=== PATIENT | male | born 1960 | race Caucasian/White ===

== ENCOUNTER 2018-06-19 01:41 | Emergency (ER) | payer OTHER, MEDICARE ==
--- NOTE | 2018-06-19 02:07 | ED ---
HPI Diabetic - HPI Summary HPI Summary: This patient is a 57 year old M BIBA to [facility] with a chief complaint of low blood glucose levels since 0:00 today. The patient rates the pain 4/10 in severity. Patient reports diaphoresis and feeling funny. He reports that for the past 4 years, his blood glucose has been out of control at 300-400. After a while, it became normal at about 160. However, last week, his blood glucose levels started dropping at night. 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 Patient takes long- acting insulin twice a day: once in the morning and again at 18:00. - History Of Current Complaint Chief Complaint: EDDiabeticProb Time Seen by Provider: 06/19/18 01:42 Hx Obtained From: Patient Onset/Duration: Sudden Onset, Lasting Hours - Starting 0:00 today., Resolved - Blood glucose levels no longer as low. Timing: Frequency Of Episodes - Every night for the past week Associated Signs & Symptoms: Diaphoresis - Allergies/Home Medications Allergies/Adverse Reactions: Allergies Allergy/AdvReac Type Severity Reaction Status Date / Time MS Iodinated Diagnostic Allergy Unknown Unknown Verified 07/13/16 17:14 Agents Reaction [Iodinated Diagnostic Agents] Details MS Shellfish-derived Products Allergy Unknown Unknown Verified 07/13/16 17:14 [Shellfish-derived Products] Reaction Details MS Penicillins [PCN] Allergy Rash And Verified 07/13/16 17:14 Itching PMH/Surg Hx/FS Hx/Imm Hx Endocrine/Hematology History: Reports: Hx Diabetes - IDDM WITH RETINOPATHY Cardiovascular History: Reports: Hx Angina, Hx Auto Implanted Cardiovert Defib - 2008, Hx Cardiomegaly - CARDIOMYOPATHY, Hx Congestive Heart Failure - EF% 20, CHF STAGE 3, Hx Coronary Artery Disease, Hx Hypercholesterolemia - HLD, Hx Hypertension, Hx Peripheral Vascular Disease - LEG STASIS ULCERS, Other Cardiovascular Problems/Disorders - LV mural thrombus, ARTHEROSCELEROUS Respiratory History: Reports: Hx Sleep Apnea - evaluation for 10/2013, Other Respiratory Problems/Disorders - smoker/TRYING TO QUIT Musculoskeletal History: Reports: Other Musculoskeletal History - (left) leg wound, OBESITY Sensory History: Reports: Hx Contacts or Glasses Opthamlomology History: Reports: Hx Contacts or Glasses - Cancer History Cancer Type, 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 ZICO STENT 2007. CARDIAC CATH. PACEMAKER/ICD 2009. S/P RIGHT ROTOR CUFF REPAIR Hx Anesthesia Reactions: No Infectious Disease History: No Infectious Disease History: Denies: Traveled Outside the [place] in Last 30 Days - Family History Known Family History: Positive: Cardiac Disease - Social History Occupation: Retired Lives: With Family Alcohol Use: None Substance Use Type: Reports: None Smoking Status (MU): Heavy Every Day Tobacco Smoker Type: Cigarettes Amount Used/How Often: < 5 CIG/DAY Length of Time of Smoking/Using Tobacco: 35 YRS Have You Smoked in the Last Year: Yes Review of Systems Positive: Skin Diaphoresis Neurological: Other - "feeling funny" All Other Systems Reviewed And Are Negative: Yes Physical Exam - Summary Physical Exam Summary: VITAL SIGNS: Reviewed. GENERAL: Patient is a well-developed and nourished MALE who is lying comfortable in the stretcher. Patient is not in any acute respiratory distress. HEAD AND FACE: No signs of trauma. No ecchymosis, hematomas or skull depressions. No sinus tenderness. EYES: PERRLA, EOMI x 2, No injected conjunctiva, no nystagmus. EARS: Hearing grossly intact. Ear canals and tympanic membranes are within normal limits. MOUTH: Oropharynx within normal limits. NECK: Supple, trachea is midline, no adenopathy, no JVD, no carotid bruit, no c- spine tenderness, neck with full ROM. CHEST: Symmetric, no tenderness at palpation LUNGS: Clear to auscultation bilaterally. No wheezing or crackles. CVS: Regular rate and rhythm, S1 and S2 present, no murmurs or gallops appreciated. ABDOMEN: Soft, non-tender. No signs of distention. No rebound no guarding, and no masses palpated. Bowel sounds are normal. EXTREMITIES: FROM in all major joints, no edema, no cyanosis or clubbing. NEURO: Alert and oriented x 3. No acute neurological deficits. Speech is normal and follows commands. SKIN: Dry and warm Triage Information Reviewed: Yes Vital Signs On Initial Exam: Initial Vitals Pulse BP Pulse Ox 72 93/54 99 06/19/18 01:46 06/19/18 01:46 06/19/18 01:46 Vital Signs Reviewed: Yes Diagnostics - Vital Signs Vital Signs Temp Pulse Resp BP Pulse Ox 06/19/18 01:53 98.8 F 68 14 93/54 98 06/19/18 01:46 72 93/54 99 - Laboratory Lab Statement: Any lab studies that have been ordered have been reviewed, and results considered in the medical decision making process. Diabetic Course/Dx - Course Assessment/Plan: This patient is a 57 year old M BIBA to [facility] with a chief complaint of low blood glucose levels since 0:00 today. Patient's blood glucose levels returned to normal in the ED and was discharged home. He was given instructions to follow up with his PCP and to change his daily evening insulin dose to 22 units at 20:00. - Diagnoses Provider Diagnoses: Hyperglycemia Discharge - Sign-Out/Discharge Documenting (check all that apply): Patient Departure - Discharge Plan Condition: Stable Disposition: HOME Patient Education Materials: Diabetes and Exercise (ED) Referrals: Griffin Yuan MD [Primary Care Provider] - 2 Weeks Additional Instructions: Decrease insulin evening dose from 27 units to 22 units. Take it at 20:00. Monitor your blood sugar and follow up with your doctor in 1-2 days. - Attestation Statements Document Initiated by Scribe: Yes Documenting Scribe: Roberto Allen Provider For Whom Scribe is Documenting (Include Credential): Hellen Ulloa MD Scribe Attestation: Roberto Villalobos, scribed for Hellen Ulloa MD on 06/19/18 at 0339.
[2018-06-19 04:11] VITALS: BP 89/56
== END 2018-06-19 04:12 | disposition home or self-care (01) ==
LOC: ED 01:41
DX: E11.65 Type 2 diabetes mellitus with hyperglycemia (principal); Z79.4 Long term (current) use of insulin; R61 Generalized hyperhidrosis; Z95.810 Presence of automatic (implantable) cardiac defibrillator; Z91.041 Radiographic dye allergy status; Z88.0 Allergy status to penicillin; Z91.013 Allergy to seafood; F17.210 Nicotine dependence, cigarettes, uncomplicated
CPT/HCPCS: 99282

== ENCOUNTER 2018-09-21 18:25 | Emergency (ER) | payer OTHER, MEDICARE ==
--- NOTE | 2018-09-21 20:00 | ED ---
Head Injury - HPI Summary HPI Summary: 57-year-old presents with head injury. He states he slipped and fell onto the left posterior aspect of his head. He also hit his hip. He is able to ambulate without difficulty. No neck pain. He is on warfarin for history of a pacer. He denies any loss consciousness. No nausea or vomiting. He admits to a headache. No dizziness. No chest pain or shortness of breath. He denies any other symptoms. - History Of Current Complaint Chief Complaint: EDHeadInjury Stated Complaint: FALL/HEAD INJURY Time Seen by Provider: 09/21/18 19:14 Pain Intensity: 6 - Allergies/Home Medications Allergies/Adverse Reactions: Allergies Allergy/AdvReac Type Severity Reaction Status Date / Time Iodinated Contrast- Oral and Allergy Unknown Verified 09/21/18 18:28 IV Dye Reaction Details Penicillins Allergy Rash And Verified 09/21/18 18:28 Itching shellfish derived Allergy Unknown Verified 09/21/18 18:28 Reaction Details PMH/Surg Hx/FS Hx/Imm Hx Endocrine/Hematology History: Reports: Hx Anticoagulant Therapy, Hx Diabetes - IDDM WITH RETINOPATHY Cardiovascular History: Reports: Hx Angina, Hx Auto Implanted Cardiovert Defib - 2008, Hx Cardiomegaly - CARDIOMYOPATHY, Hx Congestive Heart Failure - EF% 20, CHF STAGE 3, Hx Coronary Artery Disease, Hx Hypercholesterolemia - HLD, Hx Hypertension, Hx Peripheral Vascular Disease - LEG STASIS ULCERS, Other Cardiovascular Problems/Disorders - LV mural thrombus, ARTHEROSCELEROUS Respiratory History: Reports: Hx Sleep Apnea - evaluation for 10/2013, Other Respiratory Problems/Disorders - smoker/TRYING TO QUIT Musculoskeletal History: Reports: Other Musculoskeletal History - (left) leg wound, OBESITY Sensory History: Reports: Hx Contacts or Glasses Opthamlomology History: Reports: Hx Contacts or Glasses - Cancer History Cancer Type, 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 ZICO STENT 2007. CARDIAC CATH. PACEMAKER/ICD 2008. S/P RIGHT ROTOR CUFF REPAIR Hx Anesthesia Reactions: No Infectious Disease History: No Infectious Disease History: Denies: Traveled Outside the [place] in Last 30 Days - Family History Known Family History: Positive: Cardiac Disease - Social History Alcohol Use: None Substance Use Type: Reports: None Smoking Status (MU): Heavy Every Day Tobacco Smoker Type: Cigarettes Amount Used/How Often: < 5 CIG/DAY Length of Time of Smoking/Using Tobacco: 35 YRS Have You Smoked in the Last Year: Yes Review of Systems Negative: Fever Negative: Chest Pain Negative: Shortness Of Breath Positive: Headache All Other Systems Reviewed And Are Negative: Yes Physical Exam Triage Information Reviewed: Yes Vital Signs On Initial Exam: Initial Vitals Temp Pulse Resp BP Pulse Ox 98.7 F 102 16 107/67 99 09/21/18 18:28 09/21/18 18:28 09/21/18 18:28 09/21/18 18:28 09/21/18 18:28 Vital Signs Reviewed: Yes Appearance: Positive: Well-Appearing Skin: Positive: Warm, Dry Head/Face: Positive: Normal Head/Face Inspection, Other - contusion noted behind left ear on head Eyes: Positive: Normal, EOMI, MAMI, Conjunctiva Clear ENT: Positive: Normal ENT inspection, Pharynx normal, TMs normal Neck: Positive: Other: - nontender neck Respiratory/Lung Sounds: Positive: Clear to Auscultation, Breath Sounds Present Cardiovascular: Positive: Normal, RRR Abdomen Description: Positive: Nontender, Soft, Other: - tenderness over left hip Bowel Sounds: Positive: Present Musculoskeletal: Positive: Normal, Strength/ROM Intact - left hip, Other - good pulses Neurological: Positive: Sensory/Motor Intact, Alert, Oriented to Person Place, Time, CN Intact II-III, Normal Gait Psychiatric: Positive: Normal Diagnostics - Vital Signs Vital Signs Temp Pulse Resp BP Pulse Ox 09/21/18 18:28 98.7 F 102 16 107/67 99 - Laboratory Lab Statement: Any lab studies that have been ordered have been reviewed, and results considered in the medical decision making process. - CT head CT Interpretation Completed By: ED Physician Summary of CT Findings: IMPRESSION: 1. No acute intracranial pathology. 2. Mild mucosal thickening of the ethmoid sinuses. 3. Other chronic findings, as above. neck CT Interpretation Completed By: ED Physician Summary of CT Findings: IMPRESSION: No acute cervical spine fracture. Head Injury Course/Dx Course Of Treatment: 57-year-old presents with head injury. He states he slipped and fell onto the left posterior aspect of his head. He also hit his hip. He is able to ambulate without difficulty. No neck pain. He is on warfarin for history of a pacer. He denies any loss consciousness. No nausea or vomiting. He admits to a headache. No dizziness. No chest pain or shortness of breath. He denies any other symptoms. On exam has contusion noted to the left posterior aspect of his head behind the ear. Normal neuro exam. CT brain normal. CT neck normal. Advised that if anything changes to return for repeat CT due to the location of the head injury. is present with patient and watch him overnight. Told to follow-up with primary. Patient understands agrees plan. - Diagnoses Differential Diagnosis/HQI/PQRI: Concussion Without LOC, Contusion, Intracranial Bleed Provider Diagnoses: Head injury Discharge - Sign-Out/Discharge Documenting (check all that apply): Patient Departure - Discharge Plan Condition: Good Disposition: HOME Patient Education Materials: Head Injury (ED) Referrals: Griffin Yuan MD [Primary Care Provider] - Additional Instructions: Place ice on area as needed Take Tylenol for headache every 6 hours Modify activities as tolerated Follow up with primary within 5 days Return to ED if develop vomiting, severe headache, change in behavior, or any new or worsening symptoms - Billing Disposition and Condition Condition: GOOD Disposition: Home
[2018-09-21 20:17] VITALS: BP 113/70
== END 2018-09-21 20:16 | disposition home or self-care (01) ==
LOC: ED 18:25
DX: S09.90XA Unspecified injury of head, initial encounter (principal); W01.0XXA Fall on same level from slipping, tripping and stumbling without subsequent striking against object, initial encounter; Y92.9 Unspecified place or not applicable; I25.119 Atherosclerotic heart disease of native coronary artery with unspecified angina pectoris; I11.0 Hypertensive heart disease with heart failure; Z95.5 Presence of coronary angioplasty implant and graft; Z79.01 Long term (current) use of anticoagulants; Z95.810 Presence of automatic (implantable) cardiac defibrillator; Z91.041 Radiographic dye allergy status; Z88.0 Allergy status to penicillin; Z91.013 Allergy to seafood; F17.210 Nicotine dependence, cigarettes, uncomplicated
CPT/HCPCS: 70450; 72125; 99281

== ENCOUNTER 2019-04-24 16:33 | Emergency (ER) | payer OTHER, MEDICARE ==
[2019-04-24 16:44] VITALS: BP 101/55
[2019-04-24] MEDS ORDERED: Clindamycin CAP* 150 MG PO ONE ×2 (17:57→17:58)
--- NOTE | 2019-04-24 21:36 | UC ---
Dental HPI - HPI Summary HPI Summary: PATIENT WITH EXTENSIVE DENTAL DECAY ARRIVES WITH 1 WEEK OF WORSENING RIGHT UPPER DENTAL PAIN. NO FEVER. STATES HE HAS HAD DIFFICULTY SECURING DENTAL TREATMENT DUE TO HIS EXTENSIVE CARDIAC HISTORY. - History of Current Complaint Chief Complaint: UCDentalProblem Stated Complaint: TOOTHACHE Time Seen by Provider: 04/24/19 17:19 Hx Obtained From: Patient Onset/Duration: Gradual Onset, Lasting Days, Still Present Severity: Moderate Pain Intensity: 1 Pain Scale Used: 0-10 Numeric Aggravating Factor(s): Heat, Cold, Chewing Alleviating Factor(s): Nothing - Allergies/Home Medications Allergies/Adverse Reactions: Allergies Allergy/AdvReac Type Severity Reaction Status Date / Time Iodinated Contrast- Oral and Allergy Unknown Verified 04/24/19 16:44 IV Dye Reaction Details Penicillins Allergy Rash And Verified 04/24/19 16:44 Itching shellfish derived Allergy Unknown Verified 04/24/19 16:44 Reaction Details PMH/Surg Hx/FS Hx/Imm Hx Endocrine History: Diabetes Cardiovascular History: Cardiac Disease - STENTS Other History Of: Anticoagulant Therapy - Surgical History Surgical History: None Surgery Procedure, Year, and Place: TAXUA STENT 2004. ZICO STENT 2007. CARDIAC CATH. PACEMAKER/ICD 2009. S/P RIGHT ROTOR CUFF REPAIR - Family History Known Family History: Positive: Cardiac Disease - Social History Alcohol Use: None Substance Use Type: None Smoking Status (MU): Heavy Every Day Tobacco Smoker Type: Cigarettes Amount Used/How Often: < 5 CIG/DAY Length of Time of Smoking/Using Tobacco: 35 YRS Have You Smoked in the Last Year: Yes When Did the Patient Quit Smoking/Using Tobacco: at admission Household Exposure Type: Cigarettes - Immunization History Most Recent Influenza Vaccination: 07/2013 Most Recent Tetanus Shot: UP TO DATE Most Recent Pneumonia Vaccination: UNSURE Review of Systems All Other Systems Reviewed And Are Negative: Yes Constitutional: Positive: Negative ENT: Positive: Dental Pain Respiratory: Positive: Negative Cardiovascular: Positive: Negative Gastrointestinal: Positive: Negative Physical Exam Triage Information Reviewed: Yes Appearance: Well-Appearing, Well-Nourished, Pain Distress - MODERATE Vital Signs: Initial Vital Signs Temp 98.7 F 04/24/19 16:40 Pulse 93 04/24/19 16:40 Resp 18 04/24/19 16:40 BP 101/55 04/24/19 16:40 Pulse Ox 100 04/24/19 16:40 Vital Signs Reviewed: Yes Eyes: Positive: Conjunctiva Clear ENT: Positive: Hearing grossly normal Dental: Positive: Gross Decay/Caries @ - DIFFUSE AND EXTENSIVE, Cervical Lymphadenopathy Neck: Positive: Supple, Nontender, Enlarged Nodes @ - RIGHT SPFL CERVICAL LAD Respiratory Exam: Normal Cardiovascular Exam: Normal Abdomen Description: Positive: Soft Musculoskeletal: Positive: No Edema Neurological: Positive: Alert Psychological: Positive: Age Appropriate Behavior Skin: Negative: Rashes Dental Complaint Course/Dx - Course Course Of Treatment: PATIENT GIVEN A LIST OF DENTAL PROVIDERS. CLINDAMYCIN 4 TIMES DAILY FOR 10 DAYS. PERIDEX MOUTH RINSE. PATIENT HAS EXTENSIVE AND SEVERE DENTAL DECAY. STRONGLY ENCOURAGED HIM TO QUIT SMOKING AND ADVISED DENTAL EVALUATION ABY. - Differential Dx/Diagnosis Provider Diagnosis: Dental decay, Dental infection Discharge - Sign-Out/Discharge Documenting (check all that apply): Patient Departure All imaging exams completed and their final reports reviewed: No Studies - Discharge Plan Condition: Stable Disposition: HOME Prescriptions: Chlorhexidine MW 0.12% 473ML* [Peridex Mouth Wash 0.12%*] 15 ml SWISH SPIT BID # 1 bottle Clindamycin HCl 300 mg PO QID #37 capsule Patient Education Materials: Dental Abscess (ED) Referrals: Griffin Yuan MD [Primary Care Provider] - (KEEP YOUR APPT NEXT WEEK) Additional Instructions: TAKE THE ANTIBIOTICS FOR THE FULL COURSE. RINSE YOUR MOUTH WITH WATER AFTER EATING OR DRINKING ANYTHING. ANTISEPTIC MOUTH RINSE TWICE DAILY. OTC MEDS NEEDED FOR DISCOMFORT. USE YOUR TRAMADOL PRESCRIBED. FOLLOW-UP WITH A DENTIST OR ORAL SURGEON ABY. IBUPROFEN MAX DOSE: 600MG (3 TABS) EVERY 6 HRS OR 800MG (4 TABS) EVERY 8 HRS OR NAPROXEN MAX DOSE: 440MG (2 TABS) EVERY 12 HRS TYLENOL MAX DOSE: 1000MG (2 EXTRA STRENGTH TABS) EVERY 8 HRS OR 650MG (2 REGULAR TABS) EVERY 6 HRS ORAL SURGERY: [facility] Chris Leblanc [address] [place] [id number] [facility] Grant Huff Jr., D.D.S. [address], [address] [place] [address] [facility] Kevin Thomson, DDS [address], [place] [address] [facility] DDS Dentist Office [address], [place], [place] [id number] Opens at 7am Dr. Suleman Salazar, DDS [address], [place], [place] [id number] Garrett Chavez D.D.S. [address], [place], [place] [id number] Opens at 8am - Billing Disposition and Condition Condition: STABLE Disposition: Home
== END 2019-04-24 18:33 | disposition home or self-care (01) ==
LOC: UCEAST 16:33
DX: K04.7 Periapical abscess without sinus (principal); K02.9 Dental caries, unspecified; E11.9 Type 2 diabetes mellitus without complications; F17.210 Nicotine dependence, cigarettes, uncomplicated; Z79.01 Long term (current) use of anticoagulants; Z88.0 Allergy status to penicillin
CPT/HCPCS: 99212; A9270-GY; G0463

== ENCOUNTER 2019-07-07 15:25 | Inpatient (IN) | payer OTHER, MEDICARE ==
--- NOTE | 2019-07-07 16:02 | ED ---
HPI Chest Pain - HPI Summary HPI Summary: Pt is a 58 y/o M that presents to the ED arriving by EMS for left-sided chest pain initially onset while around 1400. It lasted approximately 30min to 1hr. En route to the ER via EMS, pt was given ASA which provided significant relief from his sx. Pt admits numbness and pain in the left arm and a non-productive cough. His arm has been bothering him since he had his pacemaker moved last year. His states that he was wet and clammy to the touch, reports episodes of dizziness, and currently has back pain. He has not had a cardiac stent placement or stress test in a while. He did have an echocardiogram that showed CHF, and he had his last cardiac stent placed 9 years ago as per patient s . Pt denies fever, chills, erythema of eyes, sore throat, SOB, productive cough, diaphoresis, abdominal pain, N/V, dysuria, hematuria, myalgia, edema, tingling on the left arm, or rash. - History of Current Complaint Chief Complaint: EDChestPainROMI Time Seen by Provider: 07/07/19 15:37 Hx Obtained From: Patient Onset/Duration: Started Hours Ago Timing: Lasting Minutes Initial Severity: Moderate Current Severity: Moderate Pain Intensity: 0 Pain Scale Used: 0-10 Numeric Chest Pain Radiates: Yes Chest Pain Radiates To:: Arm Character: Cough, Non-Productive, Pressure/Squeezing Aggravating Factor(s): Nothing Alleviating Factor(s): Medication - ASA, Spontaneous Resolution Associated Signs and Symptoms: Positive: Chest Pain - Left-sided, Numbness - Left arm, Dizziness, Cough, Nonproductive Cough, Back Pain. Negative: Tingling , Shortness of Breath, Fever, Chills, Diaphoresis, Nausea, Productive Cough, Abdominal Pain, Vomiting, Edema - Allergy/Home Medications Allergies/Adverse Reactions: Allergies Allergy/AdvReac Type Severity Reaction Status Date / Time Iodinated Contrast Media Allergy Unknown Verified 04/24/19 16:44 [Iodinated Contrast- Oral Reaction and IV Dye] Details Penicillins Allergy Rash And Verified 04/24/19 16:44 Itching shellfish derived Allergy Unknown Verified 04/24/19 16:44 Reaction Details Home Medications: Home Medications Acetaminophen [Acetaminophen Extra Strength] 500 mg PO Q6HR PRN 07/07/19 [ History Confirmed 07/07/19] Carvedilol TAB* [Coreg TAB*] 12.5 mg PO BID 07/07/19 [History Confirmed 07/07/19 ] Insulin Glargine,Hum.rec.anlog [Lantus Solostar] 15 unit SUBCUT DAILY 07/07/19 [ History Confirmed 07/07/19] Loperamide CAP* [Imodium CAP*] 4 mg PO BID 07/07/19 [History Confirmed 07/07/19] Nitroglycerin TAB 0.4 MG* 0.4 mg SL Q5M PRN 07/07/19 [History Confirmed 07/07/19 ] Spironolactone TAB* [Aldactone TAB*] 12.5 mg PO DAILY 07/07/19 [History Confirmed 07/07/19] Warfarin TAB(*) [Coumadin TAB(*)] 2.5 mg PO MOTUTHFRSA 07/07/19 [History Confirmed 07/07/19] Warfarin TAB(*) [Coumadin TAB(*)] 5 mg PO SUWE 07/07/19 [History Confirmed 07/07] PMH/Surg Hx/FS Hx/Imm Hx Previously Healthy: Yes Endocrine/Hematology History: Reports: Hx Anticoagulant Therapy, Hx Diabetes - IDDM WITH RETINOPATHY Cardiovascular History: Reports: Hx Angina, Hx Auto Implanted Cardiovert Defib - 2008, Hx Cardiomegaly - CARDIOMYOPATHY, Hx Congestive Heart Failure - EF% 20, CHF STAGE 3, Hx Coronary Artery Disease, Hx Hypercholesterolemia - HLD, Hx Hypertension, Hx Peripheral Vascular Disease - LEG STASIS ULCERS, Other Cardiovascular Problems/Disorders - LV mural thrombus, ARTHEROSCELEROUS Respiratory History: Reports: Hx Sleep Apnea - evaluation for 10/2013, Other Respiratory Problems/Disorders - smoker/TRYING TO QUIT Musculoskeletal History: Reports: Other Musculoskeletal History - (left) leg wound, OBESITY Sensory History: Reports: Hx Contacts or Glasses Opthamlomology History: Reports: Hx Contacts or Glasses - Cancer History Cancer Type, 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 ZICO STENT 2007. CARDIAC CATH. PACEMAKER/ICD 2008. S/P RIGHT ROTOR CUFF REPAIR Hx Anesthesia Reactions: No - Immunization History Immunizations Up to Date: Yes Infectious Disease History: No Infectious Disease History: Denies: Traveled Outside the [place] in Last 30 Days - Family History Known Family History: Positive: Cardiac Disease - Social History Alcohol Use: None Hx Substance Use: No Substance Use Type: Reports: None Hx Tobacco Use: Yes Smoking Status (MU): Heavy Every Day Tobacco Smoker Type: Cigarettes Amount Used/How Often: < 5 CIG/DAY Length of Time of Smoking/Using Tobacco: 35 YRS Have You Smoked in the Last Year: Yes Review of Systems Negative: Fever, Chills, Skin Diaphoresis Negative: Erythema Negative: Sore Throat Positive: Chest Pain Positive: Cough. Negative: Shortness Of Breath Negative: Abdominal Pain, Vomiting, Nausea Negative: dysuria, hematuria Negative: Myalgia, Edema Negative: Rash Positive: Numbness - Left arm. Negative: Paresthesia All Other Systems Reviewed And Are Negative: Yes Physical Exam - Summary Physical Exam Summary: Constitutional: Well-developed, Well-nourished, Alert. (-) Distressed Skin: Warm, Dry HENT: Normocephalic; Atraumatic Eyes: Conjunctiva normal Neck: Musculoskeletal ROM normal neck. (-) JVD, (-) Stridor, (-) Tracheal deviation Cardio: Rhythm regular, rate normal, Heart sounds normal; Intact distal pulses; The pedal pulses are 2+ and symmetric. Radial pulses are 2+ and symmetric. (-) Murmur Pulmonary/Chest wall: Effort normal. (-) Respiratory distress, (-) Wheezes, (-) Rales Abd: Soft, (-) tenderness, (-) Distension, (-) Guarding, (-) Rebound Musculoskeletal: (-) Edema Lymph: (-) Cervical adenopathy Neuro: Alert, Oriented x3 Psych: Mood and affect Normal Triage Information Reviewed: Yes Vital Signs On Initial Exam: Initial Vitals Temp Pulse Resp BP Pulse Ox 98.6 F 88 18 139/67 98 07/07/19 15:30 07/07/19 15:30 07/07/19 15:30 07/07/19 15:30 07/07/19 15:30 Vital Signs Reviewed: Yes Diagnostics - Vital Signs Vital Signs Temp Pulse Resp BP Pulse Ox 07/07/19 15:30 98.6 F 88 18 139/67 98 - Laboratory Result Diagrams: 07/07/19 15:58 07/07/19 15:58 Lab Statement: Any lab studies that have been ordered have been reviewed, and results considered in the medical decision making process. - Radiology Chest x-ray Radiology Interpretation Completed By: Radiologist Summary of Radiographic Findings: Chest x-ray IMPRESSION: NO ACTIVE CARDIOPULMONARY DISEASE IS NOTED. Reviewed by ED physician. - EKG 15:46 Cardiac Rate: NL - 94 BPM Summary of EKG Findings: EKG performed at 15:46 shows 94 BPM and atrial-sensed ventricular-paced rhythm, no STEMI. Reviewed by ED physician. Chest Pain Course/Dx - Course Course Of Treatment: Pt is a 58 y/o M that presents to the ED arriving by EMS for left-sided chest pain initially onset while around 1400. It lasted approximately 30min to 1hr. En route to the ER via EMS, pt was given ASA which provided significant relief from his sx. Pt admits numbness and pain in the left arm and a non-productive cough. His arm has been bothering him since he had his pacemaker moved last year. His states that he was wet and clammy to the touch, reports episodes of dizziness, and currently has back pain. He has not had a cardiac stent placement or stress test in a while. He did have an echocardiogram that showed CHF, and he had his last cardiac stent placed 9 years ago as per patients . Pt denies fever, chills, erythema of eyes, sore throat, SOB, productive cough, diaphoresis, abdominal pain, N/V, dysuria, hematuria, myalgia, edema, tingling on the left arm, or rash. On exam, pt had no significant findings. EKG performed at 15:46 shows 94 BPM and atrial-sensed ventricular-paced rhythm, no STEMI. Chest x-ray IMPRESSION: NO ACTIVE CARDIOPULMONARY DISEASE IS NOTED. Labs results: Troponin is 0.12 H, RBC is 3.74 L, Hgb 12.9 L, 37 L, and creatinine is 1.[address] Ayala at 16:45 who will be coming to evaluate the pt before admission. Patient is admitted to [facility] [place] with a diagnosis of chest pain unspecified and elevated troponin. I reviewed medical records and troponin appears to be at baseline. - Diagnoses Provider Diagnoses: Chest pain, unspecified, Elevated troponin Discharge ED - Sign-Out/Discharge Documenting (check all that apply): Patient Departure Patient Received Moderate/Deep Sedation with Procedure: No - Discharge Plan Condition: Stable Disposition: ADMITTED TO [facility] Referrals: Griffin Yuan MD [Primary Care Provider] - - Attestation Statements Document Initiated by Scribe: Yes Documenting Scribe: Nina Sánchez Provider For Whom Scribe is Documenting (Include Credential): Dony Jose MD. Scribe Attestation: I, Nina Sánchez, scribed for Dony Jose MD. on 07/07/19 at 1823. Status of Scribe Document: Ready Consult Consult: Consult with Dr. Ayala at 16:45 who will be coming to evaluate the pt before admission.
[2019-07-07 16:08] LABS: ABS Basophils 0.1 10^3/ul (0-0.2); ABS Eosinophils 0.2 10^3/ul (0-0.6); ABS Lymphocytes 1.7 10^3/ul (1.0-4.8); ABS Monocytes 0.6 10^3/ul (0-0.8); ABS Neutrophils 5.1 10^3/ul (1.5-7.7); Eosinophil % 2.2 %; Hematocrit 37 % (42-52); Hemoglobin 12.9 g/dL (14.0-18.0); Lymphocyte % 22.4 %; Mean Corpuscular HGB Conc 35 g/dL (31-36); Mean Corpuscular Hemoglobin 34 pg (27-31); Mean Corpuscular Volume 99 fL (80-94); Mean Platelet Volume 7.1 fL (7.4-10.4); Nucleated Red Blood Cells % 0.1; Platelet Count 165 10^3/uL (150-450); Red Blood Count 3.74 10^6 /uL (4.18-5.48); Red Cell Distribution Width 14 % (10-15); White Blood Count 7.6 10^3/uL (3.5-10.8)
[2019-07-07 16:27] LABS: Troponin I 0.12 ng/mL (<0.04)
--- OUTSIDE RECORDS SUMMARY | 2019-07-07 16:30 | XMS REPORT | Summary of Care ---
:1960 Author Organization [facility] Address [address] [place] [place] [address] Care Team Providers Name Role Phone Griffin Yuan MD Primary Care Provider Reason for Visit Reason Comments Blood Pressure pt states dizzy when standing and low BP ( pt has seen Katie Yuan for this ) Encounter Details Date Type Department Care Team Description 07/07/2019 Office Visit [facility] Nilsa Ferro Lightheadedness ( Primary Dx); Practice [employer] Benign hypertension [address] [place], [place] [id number] [place] [address] [phone] Allergies Active Allergy Reactions Severity Noted Date Comments Penicillins Hives 05/25/2004 Shell Fish Anaphylaxis 05/25/2004 Tape: Silk Or Adhesive Dermatologic Reaction 07/09/2015 Paper tape documented as of this encounter (statuses as of 07/07/2019) Medications Medication Sig Dispensed Refills Start End Date Status Date Pen Amigo 31G X 1 Package by 1 Each 5 Active 8 MM Does not Does not apply 0 apply Misc route TWO TIMES DAILY BEFORE MEALS. humalog pen needles Blood Glucose 1. Brand: per meter type 100 Strip 5 Active Monitoring Suppl 2. Dx:Diabetes 1 (BLOOD GLUCOSE 3. Insulin dependent TEST STRIPS 4. Test Blood Glucose 3 time(s) A DAY STRP)Indications: Type II or unspecified type diabetes mellitus without mention of complication, not stated as uncontrolled nitroglycerin Place 1 Tab 1 Bottle 3 Active (NITROSTAT) 0.4 MG under tongue 6 Sublingual SL Tab EVERY FIVE MINUTES NEEDED for chest pain. Blood Glucose 1 Each by Does 1 Device 0 Active Monitor Software not apply route 6 Does not apply DIRECTED. Device uncontrolled insulin dependent diabetes. Brand: insurance preferred Dx: E11.9 Glucose Blood In 100 Strips by In 100 Strip 5 Active Vitro Strip Vitro route 6 THREE TIMES DAILY. uncontrolled insulin dependent diabetes Dx E11.9 Lancets Does not by Does not 100 Each 5 Active apply Misc apply route. 6 Brand:insurance prefferred Dx: E11.9 Insulin dependent Test Blood Glucose 3 time(s) A DAY Acetaminophen Take 500 mg by 0 Active (TYLENOL 8 HOUR mouth NEEDED. PO) spironolactone Take 0.5 Tabs by 45 Tab 3 Active (ALDACTONE) 25 MG mouth DAILY. 9 Oral Tab clopidogrel Take 1 Tab by 90 Tab 3 Active (PLAVIX) 75 MG mouth DAILY. 9 Oral Tab loperamide TAKE 2 CAPSULES 120 Cap 3 Active (IMODIUM) 2 MG BY MOUTH EVERY 9 Oral Cap MORNING AND EVENING tramadol (ULTRAM) Take 1-2 Tabs by 120 Tab 5 Active 50 MG Oral Tab mouth EVERY 9 EIGHT HOURS NEEDED (pain). Max Daily Amount: 300 mg. atorvastatin Take 1 Tab by 90 Tab 5 Active (LIPITOR) 40 MG mouth DAILY. 9 Oral Tab Insulin Glargine Inject 15 Units 15 mL 3 Active (LANTUS SOLOSTAR) beneath the skin 9 100 UNIT/ML DAILY. Subcutaneous Solution Pen-injectorIndica tions: Type 2 diabetes mellitus without complication, with long-term current use of insulin (HCC) ramipril (ALTACE) Take 1 Cap by 90 Cap 3 Active 5 MG Oral Cap mouth DAILY. 9 carvedilol (COREG) Take 1 Tab by 60 Tab 0 Active 12.5 MG Oral mouth TWICE 9 TabIndications: DAILY. Benign hypertension carvedilol (COREG) Take 1 Tab by 180 Tab 3 07/07/20 Discontinued 25 MG Oral Tab mouth TWO TIMES 9 19 DAILY WITH MEALS. ramipril (ALTACE) Take 2 Caps by 90 Cap 3 07/07/20 Discontinued 5 MG Oral mouth DAILY. 9 19 (Reorder) CapIndications: Benign hypertension furosemide (LASIX) Take 1 Tab by 90 Tab 1 07/07/20 Discontinued 20 MG Oral Tab mouth DAILY. 9 19 warfarin Take 0.5-1 Tabs 90 Tab 3 07/07/20 Discontinued (COUMADIN) 5 MG by mouth DAILY. 9 19 (Dose Oral As directed Adjustment) TabIndications: which is HOLD Left ventricular Carie. 5mg Sun and thrombosis Wed. 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 Doppler signal is tri-phasic at the STREET [employer]ILWAY [employer] INSTALLER/DPA. Left: PVR waveforms suggests mild-moderate arterial occlusive disease. Dopplers signal are bi-phasic in the STREET [employer]WAY LINE INST[employer]ER, and Randall-phasic in the DPA. 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 02/09/2010 Overview: Managed by [place] [facility] Referring Provider: Arabella Indication: Afib Target Range: 2.0-3.0 Duration: Indefinite Additional factors influencing anticoagulation: CHADS2 score of 3 for LV dysfunction, diabetes, hypertension [id number] score of 4 for LV dysfunction, diabetes, hypertension, vascular disease Clopidogrel significantly increases bleeding risk Spironolactone decreases warfarin effect Updated Referral: 04/2018, 05/28/19 Updated [facility] Orders: 04/29/18, 06/09/19 Tubular adenoma 02/08/2010 Overview: Colonoscopy/polypectomy 01/29 Dr Adames Cardiomyopathy, ischemic 11/01/2009 Overview: 02/13/11: Echocardiogram FINAL IMPRESSION: Severe LV systolic dysfunction withy EF 25-30%, extensive multivessel distribution wall motion abnormalities as described below. Mild left atrial enlargement. No significant valve pathology. Normal right heart size and RV function, PA pressure could not be determined. Congestive heart failure, unspecified 08/26/2009 Overview: Left ventricular ejection fraction 20-25% Ischemic cardiomyopathy S/p biventricular pacemaker and ICD placement Dr Chavez [facility] 07/30 S/P ICD (internal cardiac defibrillator) procedure 08/26/2009 Overview: 08/19/09: Biventricular pacemaker placement [facility] DEFIBRILLATOR GENERATOR IMPLANTED: Promote Plus, model FV2788, serial number [id number]. RIGHT ATRIAL LEAD: Model 1888, serial number [id number]. LEFT VENTRICULAR LEAD: Model 1158T, serial number [id number]. RIGHT VENTRICULAR LEAD/COIL: Model 7121, serial number [id number]. 02/29/12: Arrhythmia Center Report There have been no episodes of atrial fibrillation or ventricular tachycardia. ICD function appears normal. This device should reach the MARYCRUZ in 2.4 to 6 years. Essential hypertension, benign 10/06/2008 Mixed hyperlipidemia 05/15/2008 Rotator cuff tear 05/15/2008 Overview: S/p right shoulder arthoscopy Dr Akins 02/26 Tobacco use disorder 09/19/2007 Overview: Quit 06/30. Restarted 10/2009 Type 2 diabetes mellitus without complication, with long-term current use of insulin Overview: Uncontrolled A1C 11.4% 06/30 Obesity, unspecified 09/19/2007 Overview: bmi 31 04/2013 Weight 249 lb 2008 Weight 190 pounds 04/2013 Coronary artery disease 09/19/2007 Overview: New prox. 80% stenosis 10/05/08 Unstable angina [facility] 05/25 CARDIAC CATH [facility] 05/25: distal LCX stenosis, LAD stenosis x2 , s/p lad percutaneous transluminal coroanry angiolasty/stent x2 Stress echocardiogram 2004: left ventricular ejection fraction 60% no ischemia. S/p LCX percutaneous transluminal coronary angiolasty [facility] . S/p inferior wall myocardial infarction [facility] 06/30-treated with t-pa Transfer to [facility]-cardiac cath left ventricular ejection fraction 20-25% and 50% RCa and no LCX in stent stenosis 08/19/09 implantation biventricular pacemaker internal cardioverter- defibrillator Background diabetic retinopathy 09/19/2007 Overview: Dr Castro 02/26 documented as of this encounter (statuses as of 07/07/2019) Resolved Problems Problem Noted Date Resolved Date ICD (implantable cardioverter-defibrillator) malfunction 07/13/20152014 Other certain sequelae of myocardial infarction, not 01/07/2014 02/04/2014 elsewhere classified Leg wound, left 08/19/2012 01/19/2014 Claudication 06/14/2012 05/09/2013 Popliteal artery occlusion 04/29/2012 02/04/2014 Chronic total occlusion of artery of the extremities 04/29/2012 05/17/2015 Diabetes mellitus type 2, uncontrolled 04/29/2012 01/29/2015 repaired distal right biceps tendon rupture 03/04/2011 05/09/2013 LV (left ventricular) mural thrombus 03/01/2011 04/17/2012 Left ventricular thrombus 02/06/2011 05/17/2012 Encounter for therapeutic drug monitoring 05/04/2010 12/07/2010 Other certain sequelae of myocardial infarction, not 02/08/2010 05/17/2015 elsewhere classified Calcifying tendinitis of shoulder 02/06/2008 05/09/2013 documented as of this encounter (statuses as of 07/07/2019) Immunizations Name Administration Dates Next Due Influenza (IM) Preservative Free 08/01/2018, 08/13/2017, 08/25/2016, 08/12/2015, 08/14/2014, 08/21/2013, 07/15/2012, 06/30/2011, 08/06/2010 Influenza Vaccine Whole 08/21/2009, 09/04/2007 Influenza Virus Vaccine - Whole 09/04/2006 PNEUMOCOCCAL POLYSACCHARIDE VACCINE 12/09/2007 documented as of this encounter Social History Tobacco Use Types Packs/Day Years Used Date Current Every Day Smoker Cigarettes 0.5 35 Smokeless Tobacco: Never Used Comments: takes a few puffs every day Alcohol Use Drinks/Week oz/Week Comments No 0 Standard drinks or equivalent 0.0 Sex Assigned at Date Recorded Not on file Job Start Date Occupation Industry Not on file Not on file Not on file Travel History Travel Start Travel End No recent travel history available. documented as of this encounter Last Filed Vital Signs Vital Sign Reading Time Taken Comments Blood Pressure - - Pulse - - Temperature 36.6 07/07/2019 8:43 AM EDT C (97.8 F) Respiratory Rate - - Oxygen Saturation 98% 07/07/2019 8:43 AM EDT Inhaled Oxygen Concentration - - Weight 80.7 kg (178 lb) 07/07/2019 8:43 AM EDT Height 167.6 cm (5' 6") 07/07/2019 8:43 AM EDT Body Mass Index 28.73 07/07/2019 8:43 AM EDT documented in this encounter Patient Instructions Patient InstructionsNilsa Frero FNP - 07/07/2019 8:40 AM EDTDecrease Coreg to 12.5 mg Twice a day - new prescription sent to pharmacy BP check with Nurse in 2 weeks Follow up with Dr Yuan or Katie in a month Call if any concerns documented in this encounter Progress Notes Nilsa Ferro FNP - 07/07/2019 8:40 AM EDT PATIENT: Chris Conte : 1960 DATE OF SERVICE: 07/07/2019 CHIEF COMPLAINT: Chief Complaint Patient presents with Blood Pressure pt states dizzy when standing and low BP ( pt has seen Katie Yuan for this ) Subjective HISTORY OF PRESENT ILLNESS: Chris Conte is a 58-y.o. male. HPI BP with home wrist cuff 104/70 in office BP low most of the time - has had meds reduced but still has low BP and dizziness at times Past Medical History: Diagnosis Date Background diabetic retinopathy(362.01) 09/19/2007 Calcifying tendinitis of shoulder 02/06/2008 Cardiomyopathy, ischemic Chronic systolic heart failure (HCC) Coronary artery disease 09/19/2007 Unstable angina [facility] 05/25 CARDIAC CATH [facility] 05/25: distal LCX stenosis, LAD stenosis x2, s/p lad percutaneous transluminal coroanry angiolasty/stent x2 Stress echocardiogram 2004: left ventricular ejection fraction 60% no ischemia. LEFT VENTRICULAR DYSFUNCTION Obesity, unspecified 09/19/2007 Old [place] (myocardial infarction) Other and unspecified hyperlipidemia 09/19/2007 Postsurgical percutaneous transluminal coronary angioplasty status 2006 Rotator cuff tear 05/15/2008 S/p right shoulder arthoscopy Dr Akins 02/26 Tobacco use disorder 09/19/2007 Type II or unspecified type diabetes mellitus with ophthalmic manifestations, not stated as uncontrolled(250.50) 09/19/2007 Type II or unspecified type diabetes mellitus without mention of complication, not stated as uncontrolled 09/19/2007 Unspecified essential hypertension 10/06/2008 Family History Problem Relation Age of Onset Heart Brother NC at 31 Heart Father NC in late 50's Heart Mother NC Heart Brother Aneurysm Sister brain and vascular disease Heart Sister of NC April 2009 Current Outpatient Medications Medication Sig Acetaminophen (TYLENOL 8 HOUR PO) Take 500 mg by mouth NEEDED. atorvastatin (LIPITOR) 40 MG Oral Tab Take 1 Tab by mouth DAILY. Blood Glucose Monitor Software Does not apply Device 1 Each by Does not apply route DIRECTED. uncontrolled insulin dependent diabetes. Brand: insurance preferred Dx: E11.9 Blood Glucose Monitoring Suppl (BLOOD GLUCOSE TEST STRIPS STRP) 1. Brand : per meter type 2. Dx:Diabetes 3. Insulin dependent 4. Test Blood Glucose 3 time(s) A DAY carvedilol (COREG) 12.5 MG Oral Tab Take 1 Tab by mouth TWICE DAILY. clopidogrel (PLAVIX) 75 MG Oral Tab Take 1 Tab by mouth DAILY. Glucose Blood In Vitro Strip 100 Strips by In Vitro route THREE TIMES DAILY. uncontrolled insulin dependent diabetes Dx E11.9 Insulin Glargine (LANTUS SOLOSTAR) 100 UNIT/ML Subcutaneous Solution Pen- injector Inject 15 Units beneath the skin DAILY. Lancets Does not apply Misc by Does not apply route. Brand:insurance prefferred Dx: E11.9 Insulin dependent Test Blood Glucose 3 time(s) A DAY loperamide (IMODIUM) 2 MG Oral Cap TAKE 2 CAPSULES BY MOUTH EVERY MORNING AND EVENING nitroglycerin (NITROSTAT) 0.4 MG Sublingual SL Tab Place 1 Tab under tongue EVERY FIVE MINUTES NEEDED for chest pain. Pen Amigo 31G X 8 MM Does not apply Misc 1 Package by Does not apply route TWO TIMES DAILYBEFORE MEALS. humalog pen needles ramipril (ALTACE) 5 MG Oral Cap Take 1 Cap by mouth DAILY. spironolactone (ALDACTONE) 25 MG Oral Tab Take 0.5 Tabs by mouth DAILY. tramadol (ULTRAM) 50 MG Oral Tab Take 1-2 Tabs by mouth EVERY EIGHT HOURS NEEDED (pain). Max Daily Amount: 300 mg. warfarin (COUMADIN) 5 MG Oral Tab Take 0.5-1 Tabs by mouth DAILY. As directed which is 5mg Mon and Fri. 2.5mg remaining days of week No current facility-administered medications for this visit. Allergies Allergen Reactions Pcn [Penicillins] Hives Shellfish [Shell Fish] Anaphylaxis Tape: Silk Or Adhesive Dermatologic Reaction Paper tape Social History Socioeconomic History Marital status: Spouse name: Not on file Number of children: Not on file Years of education: Not on file Highest education level: Not on file Occupational History Not on file Social Needs Financial resource strain: Not on file Food insecurity: Worry: Not on file Inability: Not on file Transportation needs: Medical: Not on file Non-medical: Not on file Tobacco Use Smoking status: Current Every Day Smoker Packs/day: 0.50 Years: 35.00 Pack years: 17.50 Types: Cigarettes Smokeless tobacco: Never Used Tobacco comment: takes a few puffs every day Substance and Sexual Activity Alcohol use: No Alcohol/week: 0.0 standard drinks Drug use: No Sexual activity: Not on file Lifestyle Physical activity: Days per week: Not on file Minutes per session: Not on file Stress: Not on file Relationships Social connections: Talks on phone: Not on file Gets together: Not on file Attends sabianism service: Not on file Active member of club or organization: Not on file Attends meetings of clubs or organizations: Not on file Relationship status: Not on file Intimate partner violence: Fear of current or ex partner: Not on file Emotionally abused: Not on file Physically abused: Not on file Forced sexual activity: Not on file Other Topics Concern Back Care Not Asked Bike Helmet Not Asked Blood Transfusions Not Asked Caffeine Concern Not Asked Exercise No Comment: walks daily to [employer] office and back-6 to 8 blocks Hobby Hazards Not Asked International Travel Not Asked Service Not Asked Occupational Exposure Not Asked Seat Belt Not Asked Self-Exams Not Asked Sleep Concern Not Asked Special Diet Not Asked Stress Concern Yes Weight Concern Yes Social History Narrative Lives in [facility] Lives with Not working-on disability for shoulder injury REVIEW OF SYSTEMS: Review of Systems Constitutional: Negative for chills, fever and malaise/fatigue. Cardiovascular: Negative for chest pain and palpitations. Musculoskeletal: Negative for falls. Neurological: Positive for dizziness. Negative for speech change, loss of consciousness, weakness and headaches. Objective PHYSICAL EXAM: VITALS: Temp 97.8 F (36.6 C) | Ht 5' 6" (1.676 m) | Wt 178 lb (80.7 kg) | SpO2 98% | BMI 28.73 kg/m Body mass index is 28.73 kg/m. Physical Exam Constitutional: He is oriented to person, place, and time. He appears well- developed and well-nourished. HENT: Head: Normocephalic and atraumatic. Eyes: Pupils are equal, round, and reactive to light. Neck: Normal range of motion. No JVD present. Cardiovascular: Normal rate and regular rhythm. Pulmonary/Chest: Effort normal and breath sounds normal. Neurological: He is alert and oriented to person, place, and time. Skin: Skin is warm and dry. Vitals reviewed. ASSESSMENT / IMPRESSION: ICD-9-CM ICD-10-CM 1. Lightheadedness 780.4 R42 2. Benign hypertension 401.1 I10 carvedilol (COREG) 12.5 MG Oral Tab too low recently Plan Decrease Coreg to 12.5 mg Twice a day - new prescription sent to pharmacy BP check with Nurse in 2 weeks Follow up with Dr Yuan or Katie in a month Call if any concerns Author: MEY Castillo 07/07/2019 09:39 documented in this encounter Plan of Treatment Date Type Specialty Care Team Description 07/15/2019 AntiCoag Anticoagulation 07/21/2019 Nurse/Clinical Support Internal Medicine 07/23/2019 Lab Internal Medicine 07/30/2019 Office Visit Cardiology Maria Del Carmen Elliott CRNP [address] [address] 08/05/2019 [facility] 08/07/2019 Office Visit Family Practice Katie Razo FNP [address] [place] [address] [phone] 11/04/2019 Office Visit Vascular Surgery Odalis Randhawa MD [address] [address] [phone] 12/09/2019 [facility] Health Maintenance Due Date Last Done Comments Diabetic Eye Exam 1960 ZOSTER IMMUNIZATION SERIES 2009 (1 of 2) MEDICARE ANNUAL WELLNESS 05/17/2013 05/17/2012 VISIT FOOT EXAM 01/18/2018 01/18/2017, 01/18/2017, 02/11/2014, Additional history exists DEPRESSION SCREENING 06/17/2019 06/17/2018 INFLUENZA VACCINE (#1) 2019 08/01/2018, 08/13/2017, 08/25/2016, Additional history exists HEMOGLOBIN A1C 07/11/2019 04/10/2019, 01/08/2019, 08/01/2018, Additional history exists LIPID DISORDER SCREENING 04/14/2020 04/14/2019, 08/01/2018, 04/30/2018, Additional history exists COLONOSCOPY SCREENING 03/13/2022 03/13/2017, 03/13/2017, 02/07/2010, Additional history exists PNEUMOCOCCAL 0-64 YRS Completed 12/09/2007 HPV IMMUNIZATION SERIES Aged Out No longer eligible based on patient's age to complete this topic MENINGOCOCCAL VACCINE IMM Aged Out No longer eligible based on patient's age to complete this topic documented as of this encounter Goals Goal Patient Goal Associated Recent Patient-Stated? Author Type Problems Progress Blood Pressure Blood Pressure Essential 98/60 No Nance, < 140/90 hypertension, (07/03/2019 Griffin Gray, benign 8:43 AM EDT) Note: Hypertension Care Plan Based on the patient's clinical history and according to JNC 8 guidelines target blood pressure goal is less than 140/90. Based on the patient's last blood pressure of BP: 120/70 mmHg the patient is at at goal. As your provider, it is important that I advise you regarding: your current medications and help you with any challenges you may face taking your medications as directed (ex. instructions, cost, side effects, and interactions). Important lifestyle changes: exercise, weight reduction, diet, dietary sodium reduction and medication compliance your clinical goals and how you can achieve success: weight reduction, exercise plan and diet improvements medication management: N/A diet only patient education/self-management tools provided: Current self-management tools adequate To successfully manage my Hypertension I will: monitor my blood pressure daily, understanding that my goal is less than 140/ 90 per my healthcare provider's recommendation. I will schedule an appointment with my provider if consistent abnormal readings greater than 160/100. take medications every day as prescribed by my healthcare provider and if unable to take them I will discuss with my provider. monitor for symptoms of chest pain, chest tightness/pressure, irregular heartbeat, persistent dizziness, radiating arm pain, and neck or jaw pain. If any of these symptoms are noticed I will seek medical attention immediately by calling 911 exercise/walk 30 minutes 5 day(s) per week. If I experience chest pain, chest tightness, or shortness of breath, I will seek medical attention immediately. follow a diet rich in fruits, vegetables, and low-fat dairy products with reduced content of saturated & total fat. I will reduce my sodium intake daily. An example is the DASH diet. To obtain more information please refer to the DASH Eating Plan listed in Educational Resources. record my blood pressure results. [employer] is safe and secure way for you to do this in your medical record online. try to obtain an ideal body weight. My recent weight was Weight: 208 lb ( 94.348 kg). My weight loss goal for my next office visit is 195 pounds . limit alcohol consumption. For men two drinks per day and women one drink per day. if currently smoking, will discuss how to quit smoking with my healthcare provider and work towards quitting. Educational Resources: National Heart, Lung, & Blood [place] http://nhlbi.nih.gov/hbp/index.html The DASH Diet Eating Plan http://www.nhlbi.nih.gov/health/health-topics/ topics/dash/ Academy of Nutrition & DIetetics http://eatright.org National Smoking Cessation Site http://smokefree.gov Blood Pressure < Blood Pressure 98/60 (07/03/2019 8:43 No Katie Razo FNP 140/90 AM EDT) Note: This is an individualized treatment (blood pressure) goal for Chris Conte: Displayed above (on the left) is your goal for blood pressure control. Your most recent blood pressure is also shown above, on the right. You should try to achieve blood pressures that are lower than your goal listed above (on the left). Weight increase vs. 18 mo CHF 18 (07/07/2019 8:43 AM EDT) Katie Kitchen FNP min (lbs) < 5 Note: This is an individualized treatment (congestive heart failure, CHF) goal for Chris Conte: Displayed above (on the right) is how many pounds you are in excess of your lowest weight over the past 18 months. Note that lower numbers are better. Excessive weight gain often indicates fluid reten tion and worsening heart failure. You should contact your doctor immediately if the above number is too high (above your goal, the number on the left). Smoking Cessation COPD No Griffin Yuan MD Note: This is an individualized treatment (COPD) goal for Chris Conte: Quit smoking immediately! Your provider has information and resources that may help you to quit. Glycohemoglobin A1c < 7.0 Diabetes 7.1 (04/10/2019 3:00 Katie Kitchen FNP PM EDT) Note: This is an individualized treatment (diabetes control, HgbA1C) goal for Chris Conte: Displayed above is your progress towards your HgbA1C goal. Your goal is shown above (on the left); your most recent HgbA1C is shown on the right. Note that lower numbers are better. Keep immunizations current Lifestyle Katie Kitchen FNP Note: This is an individualized lifestyle goal for Chris Conte: Please be sure to keep up-to-date on recommended immunizations. For example, this would include a yearly influenza vaccine. Immunization status can be seen by looking at the Health Maintenance sections of your [employer], Plan of Care, and any After Visit Summaries. Consume a [id number] diet Lifestyle No Katie Razo FNP Note: This is an individualized lifestyle goal for Chris Conte: Please do not add additional salt to your food. Additional salt may lead to fluid retention and worsen your congestive heart failure. Take all prescribed medications as Self-management Katie Kitchen FNP directed Note: This is an individualized self-management goal for Chris Conte: Please take all prescribed medications as directed. 1. Do not skip doses. If you cannot afford your medications, talk with your doctor. 2. Use a pill reminder system such as a pill box if needed. Your pharmacist can help you with this. 3. Contact your Pharmacy 5 days before your medication runs out. If you cannot take your medications for any reasons, talk with your doctor. 4. Please bring all of your medication bottles and inhalers (or a list of all your medications/inhalers) with you to every visit. Potential barriers to meeting all of your care plan goals will continue to be addressed on an ongoing basis. Check your weight daily Self-management Katie Kitchen FNP Note: This is an individualized self-management goal for Chris Conte: Please check your weight daily. Refer to the accompanying CHF treatment goal and call your doctor immediately for further instructions on how to respond to unexpected weight gain. 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 Device Shelf Model / Identifier Expiration Serial / Date Lot 2.5 X 12 Xience - [id number] Circumflex VALDEZ VASCULAR [id number] / Implanted: Qty: 1 on 10/05/2008 at [facility] [id number] / [id number] 2.5/32 Taxus Liberte - [id number] [facility] [id number] / Implanted: Qty: 1 on 05/21/2009 at [facility] / [id number] Promote Plus Icd [id number] - [id number] Left: Chest [facility]AY 11/21/2010 [id number] / Implanted: Qty: 1 on 08/19/2009 at [facility] MEDICAL/PACESET [id number] / TER Lead Tendril # [id number]-52 - [id number] Left: Chest [facility] ZAY 05/21/2012 [id number] -[id number] / Implanted: Qty: 1 on 08/19/2009 at [facility] MEDICAL/PACESET [id number] / TER 7121/65 Durata Lead - [id number] Left: Chest [facility] 02/19/2012 7121/65 / Implanted: Qty: 1 on 08/19/2009 at [facility], [facility]. [id number] / 1158t Quickflex Lead - [id number] Left: Chest [facility] 03/21/2012 1158T / Implanted: Qty: 1 on 08/19/2009 at [facility] [id number] / Biotenodesis Screw 8 X 12mm - [id number] Right: Biceps ARTHREX [id number] / Implanted: Qty: 1 on 02/21/2011 at [facility] / [id number] Quartet 1458q-86cm - [id number] N/A: Chest [facility] 03/21/2018 [id number] / Implanted: Qty: 1 on 07/12/2015 by Jack Chavez MD at [facility], [facility]. [id number] / Tyrx Large Absorbable Antibacterial Envelope - [id number] N/A: Chest [employer] 08/21/2015 [id number] / Implanted: Qty: 1 on 07/12/2015 by Jack Chavez MD at [facility] / [id number] Quadra Assura [id number] - [id number] N/A: Chest [facility] 03/21/2017 [id number] / Implanted: Qty: 1 on 07/12/2015 by Jack Chavez MD at [facility], [facility]. [id number] / Optisense Lead - [id number] N/A: Chest [facility] 04/20/2018 / Implanted: Qty: 1 on 07/12/2015 by Jack Chavez MD at [facility], [facility]. [id number] / documented as of this encounter Results Not on filedocumented in this encounter Visit Diagnoses Diagnosis Lightheadedness - Primary Dizziness and giddiness Benign hypertension Essential hypertension, benign documented in this encounter Insurance Payer Benefit Plan / Subscriber ID Effective Dates Phone Address Type Group A[employer]ERCIAL [place] [place] xxxxxxxxxx 2012-Present Aetna [place] MEDICARE MEDICARE PART A xxxxxxxxxxx 2012-Present Medicare & B Guarantor Name Account Type Relation to Date of Phone Billing Address Patient Chris Conte Personal/Family [address] (Home) [place], [place] [phone] (Work) documented as of this encounter
[2019-07-07 16:52] LABS: ALT 12 U/L (7-52); AST 17 U/L (13-39); Albumin 3.7 g/dL (3.2-5.2); Albumin/Globulin Ratio 1.4 (1-3); Alkaline Phosphatase 53 U/L (34-104); BUN/Creatinine Ratio 17.6 (8-20); Blood Urea Nitrogen 22 mg/dL (6-24); CO2 Carbon Dioxide 23 mmol/L (22-32); Chloride 109 mmol/L (101-111); EGFR African American 71.5 (>60); EGFR Non-African American 59.1 (>60); Globulin 2.7 g/dL (2-4); Glucose 179 mg/dL (70-100); Sodium 137 mmol/L (135-145); Total Protein 6.4 g/dL (6.4-8.9)
[2019-07-07 16:54] LABS: Anion Gap 5 mmol/L (2-11); Potassium 5.4 mmol/L (3.5-5.0)
[2019-07-07] MEDS ORDERED: Sucralfate TAB* 1 GM PO ONE (17:57)
[2019-07-07] MEDS ORDERED: Nitroglycerin TAB 0.4 MG* 0.4 MG TAB SL PRN (18:02)
[2019-07-07] MEDS ORDERED: Acetaminophen TAB* 325 MG PO PRN (18:06)
[2019-07-07] MEDS ORDERED: Ondansetron INJ* 2 MG/ML VIAL IV PRN (18:06)
[2019-07-07] MEDS ORDERED: Al Hydrox/Mg Hydrox/Simet LIQ* 30 ML UDC PO PRN (18:06)
[2019-07-07 18:32] LABS: Magnesium 1.6 mg/dL (1.9-2.7)
[2019-07-07 19:12] LABS: Troponin I 1.84 ng/mL (<0.04)
[2019-07-07] MEDS: NS 0.9% 1000 ML** 1,000 ML IV SCH (19:44)
[2019-07-07 19:57] LABS: INR 1.4 (0.82-1.09)
[2019-07-07] MEDS ORDERED: Warfarin TAB(*) 2.5 MG PO SCH (20:00)
[2019-07-07] MEDS ORDERED: Morphine INJ* 2 MG/ML 1 ML SYRINGE (TWO MG - NEW SYRINGE VERSION) IV PRN (20:18)
[2019-07-07] MEDS ORDERED: Heparin DRIP 25,000 UNITS(*) 25,000 UNITS/500 ML BAG IV SCH (20:30)
--- NOTE | 2019-07-07 20:44 | HP ---
ADMISSION HISTORY AND PHYSICAL: DATE OF ADMISSION: 07/07/19 PRIMARY CARE PHYSICIAN: Dr. Yuan. PROVIDER: Rosalva Estrella NP ATTENDING PHYSICIAN: Dr. Carrillo.* (DICTATED BY ROSALVA ESTRELLA NP) HISTORY OF PRESENT ILLNESS: This is a 58-year-old male with a past medical history significant for 4 MIs with 4 stents, arterial insufficiency, diabetes, transient CHF, who presented to the emergency room this afternoon with chest pain. This started around 2 o'clock today. Pain originated in the left chest then later radiating into the left arm causing numbness and tingling. It was clammy and vomited at the time the pain started. The patient had eaten a greasy burger for lunch and had been to the doctor this morning to address low BPs and Coumadin levels. Chest pain was described as sharp and stabbing though no pain reported now. Denies shortness of breath. Denies any indigestion. No current nausea or vomiting. No radiating pain. Also reported having "dizzy spells" starting one month ago, which he described as episodic lightheadedness and had been checking blood pressures 4 times a day with blood pressures averaging around 98/66. Has had recent medication changes made by his primary care physician to address the low blood pressure within the past week. He states his blood pressures have come up to above 140s/80s. He also states that he drinks 3 pots of coffee a day. Does not drink water. Denies any other recreational drug use. In the ED, the patient was ordered to have a dose of Carafate due to burping, gentle IV hydration. Hospitalists were consulted to admit the patient. PAST MEDICAL HISTORY: Includes 4 MIs with 4 stents, right biceps rupture, arterial insufficiency to left lower extremity with stasis ulcers, diabetes type 2, transient CHF, and chronic diarrhea. PAST SURGICAL HISTORY: Includes right biceps rupture repair. MEDICATIONS: 1. Coumadin 2.5 mg p.o. every Sunday, Sunday, , Sunday, Sunday. 2. Coumadin 5 mg p.o. every Sunday and Sunday. 3. Acetaminophen 500 mg p.o. q.6 hours p.r.n. 4. Tramadol 50 to 100 mg p.o. q.8 hours p.r.n. 5. Spironolactone 12.5 mg p.o. daily. 6. Ramipril 5 mg p.o. daily. 7. Nitroglycerin 0.4 mg sublingually q.5 minutes p.r.n. 8. Loperamide 4 mg p.o. b.i.d. 9. Insulin Lantus 15 units subcu daily. 10. Clopidogrel 75 mg p.o. daily. 11. Carvedilol 12.5 mg p.o. daily. 12. Atorvastatin 40 mg p.o. daily. FAMILY HISTORY: Includes father had heart disease. Son has heart disease. Brother passed of an [place]. Sister passed of an aneurysm. SOCIAL HISTORY: Smokes about 1 pack a week. Has been smoking since age 12. Denies any alcohol. Denies any recreational drug use. 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 He is , has kids. REVIEW OF SYSTEMS: An 11-point system review was positive for burping, decreased sensation to bilateral lower extremities, left worse than right, lightheadedness. No headaches, current chest pain, shortness of breath. No current nausea. Multiple old healed ulcers to bilateral lower extremities. PHYSICAL EXAMINATION GENERAL: In no acute distress noted. The patient appears well groomed. VITAL SIGNS: 126/75, heart rate 80, 98.6 temp, 15 respirations, 96% on room air. HEENT: Eyes: Conjunctivae pink and moist. Pupils round and reactive to light. Extraocular muscles intact. Normocephalic, atraumatic. Oropharynx clear. Mucous membranes moist. Multiple rotted and broken teeth. LYMPHATIC: No cervical lymphadenopathy noted. RESPIRATORY: Lungs diminished in the bases though clear throughout bilaterally. No accessory muscle use noted. CARDIAC: S1, S2. Heart rate regular though distant sounding. No lower extremity edema noted. +2 pedal pulses. ABDOMEN: Soft, tender to the left upper quadrant. Positive bowel sounds x4. MUSCULOSKELETAL: No clubbing, no cyanosis noted. Full range of motion in bilateral upper and lower extremities. SKIN: Again, multiple brown scarred areas in bilateral lower extremities, which are mottled. NEUROLOGIC: No focal deficits appreciated. PSYCH: Alert and oriented x3. No anxiety or depression noted. DIAGNOSTIC STUDIES/LAB DATA: Pertinent Data: Potassium 5.4, creatinine 1.25. Troponin 0.12 consistent with baseline. Lactic acid 1.1. Chest x-ray showed no active cardiopulmonary disease. EKG was 100% paced, left axis deviation. Echocardiogram in 2013 showed an ejection fraction of 50% with no valvular dysfunction and structurally normal. Cardiac cath in 2003 showed 90 % stenosis of left ascending coronary. ASSESSMENT AND PLAN: IMPRESSION: This is a 58-year-old male with a past medical history significant for myocardial infarctions with stenting, diabetes, transient congestive heart failure, arterial insufficiency, presented to the ED today with chest pain, acute kidney injury, hyperkalemia, and rule out gallbladder disease. PLAN: 1. Chest pain: Follow serial trops. One time dose of Carafate. Obtain records from Dr. Chavez's office for the most recent echo and stress test prior to putting in orders for those here. Telemetry. 2. Acute kidney injury: Hold lisinopril and spironolactone. Gentle IV hydration. 3. Hyperkalemia: Potassium level 5.4. Hydrate and hold spironolactone. Recheck BMP in a.m. 4. Diabetes: Continue Lantus. Fingersticks a.c. and at bedtime for sliding scale. Hemoglobin A1c pending results. 5. Hypertension: Continue carvedilol. Again, hold lisinopril and spironolactone. 6. History of myocardial infarction with stenting: Continue Plavix and warfarin. 7. Rule out gallbladder disease: Perform ultrasound of gallbladder. 8. DVT prophylaxis: SCDs. The patient is already on Plavix and warfarin. 9. Code status is full. 10. Disposition. Admit to OBV to the telemetry floor. 11. Condition is guarded. TIME SPENT: Time spent with the patient about 60 minutes total. Plan was reviewed with my attending and he agrees. ROSALVA ESTRELLA, HOSPICE/HOME HEALTH AIDE [id number]/[facility]PS #: [id number] DARLENE
[2019-07-07 20:54] LABS: Activated Partial Thrombo Time 40.3 seconds (26.0-38.0)
[2019-07-07] MEDS ORDERED: Insulin GLARGINE(*) 1 UNITS UNIT SUBCUT SCH (21:00)
[2019-07-07] MEDS ORDERED: Heparin VIAL(*) 5000 UNITS/ML VIAL (FIVE THOUSAND) IV SCH (21:00)
[2019-07-07] MEDS: Loperamide CAP* 2 MG PO SCH (21:54)
[2019-07-07] MEDS: Carvedilol TAB* 6.25 MG PO SCH (21:55)
[2019-07-07] MEDS: Insulin LISPRO* 1 UNITS UNIT SUBCUT SCH (22:39)
[2019-07-07 23:19] LABS: Troponin I 3.69 ng/mL (<0.04)
[2019-07-07] MEDS ORDERED: Magnesium Sulfate 2 GM IV (Premix) IVPB ONE (23:30)
[2019-07-08 00:58] LABS: Troponin I 5.34 ng/mL (<0.04)
[2019-07-08 04:31] LABS: ABS Basophils 0.1 10^3/ul (0-0.2); ABS Eosinophils 0.2 10^3/ul (0-0.6); ABS Lymphocytes 2.7 10^3/ul (1.0-4.8); ABS Monocytes 0.8 10^3/ul (0-0.8); ABS Neutrophils 6.4 10^3/ul (1.5-7.7); Eosinophil % 1.6 %; Hematocrit 38 % (42-52); Hemoglobin 12.9 g/dL (14.0-18.0); Lymphocyte % 26.8 %; Mean Corpuscular HGB Conc 34 g/dL (31-36); Mean Corpuscular Hemoglobin 34 pg (27-31); Mean Corpuscular Volume 99 fL (80-94); Mean Platelet Volume 7.1 fL (7.4-10.4); Nucleated Red Blood Cells % 0.1; Platelet Count 173 10^3/uL (150-450); Red Blood Count 3.81 10^6 /uL (4.18-5.48); Red Cell Distribution Width 14 % (10-15); White Blood Count 10.1 10^3/uL (3.5-10.8)
[2019-07-08 04:52] LABS: BUN/Creatinine Ratio 21.1 (8-20); Calcium 8.6 mg/dL (8.6-10.3); EGFR African American 79.6 (>60); EGFR Non-African American 65.7 (>60); Potassium 4.8 mmol/L (3.5-5.0)
[2019-07-08 05:03] LABS: Troponin I 7.02 ng/mL (<0.04)
[2019-07-08] MEDS: NS 0.9% 1000 ML** 1,000 ML IV SCH (06:45)
[2019-07-08] MEDS: Insulin LISPRO* 1 UNITS UNIT SUBCUT SCH ×3 (08:05→16:39)
[2019-07-08] MEDS ORDERED: Perflutren Lipid Microsphere* 3 ML VIAL ONE (08:34)
[2019-07-08] MEDS ORDERED: Clopidogrel TAB* 75 MG PO SCH (09:00)
[2019-07-08 09:12] LABS: Troponin I 6.08 ng/mL (<0.04)
--- NOTE | 2019-07-08 10:10 | ECHO ---
*[facility]* [place] [address] Fax #: [phone] Transthoracic Echocardiogram Patient: Chris Conte : 1960 Study Date: 07/08/2019 Age: 58 Gender: M HR: 82 bpm Height: 67 in /170.2 cm BSA: 1.92 m^2 Weight: 177.6 lb /80.7 kg BMI: 27.9 kg/m^2 *Financial Management Consultant: * Stephanie Lombardi RDCS RN *Referring Physician: * Vincent Healy MD *Reading Physician: * Vincent Healy MD Indications: Chest Pain, unspecified. History: Coronary artery disease. Congestive heart failure. PMH: Myocardial infarction. Cardiomyopathy. Risk factors: Current tobacco use. Diabetes mellitus. Labs, prior tests, procedures, and surgery: Catheterization. 4 coronary stents placed in the past. ICD system implantation. Conclusions Summary: - Left ventricle: Systolic function is severely reduced. The estimated ejection fraction is 20-25%. Severe diffuse hypokinesis with regional variations. 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 Probable calcified thrombus in the left ventricle apex. - Right ventricle: Systolic function is normal. - Mitral valve: There is no evidence of stenosis. There is mild regurgitation. - Aortic valve: There is no evidence of stenosis. There is no regurgitation. - Tricuspid valve: There is trace to mild regurgitation. - Pulmonary arteries: Systolic pressure is mildly increased, estimated to be 37 mm Hg. - Compared to study of 01/01/14, there is little change. Study data: Transthoracic echocardiogram. Procedure: Transthoracic echocardiography was performed. Image quality was fair. The study was technically limited due to smoking history. Intravenous Definity 4 ml was administered to enhance imaging. Complete 2D, spectral Doppler, and color flow Doppler. Location: Bedside. Patient status: Inpatient. Patient room number: 451. Rhythm: Paced rhythm. Findings Left ventricle: The cavity size is normal. Wall thickness is normal. Systolic function is severely reduced. The estimated ejection fraction is 20-25%. Severe diffuse hypokinesis with regional variations. 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 Probable calcified thrombus in the left ventricle apex. Doppler parameters are consistent with abnormal left ventricular relaxation (grade 1 diastolic dysfunction). Right ventricle: The cavity size is mildly dilated. Pacer wire noted in the right ventricle. Systolic function is normal. Left atrium: The atrium is normal in size. Right atrium: The atrium is normal in size. Pacer wire noted in right atrium. Mitral valve: The posterior mitral valve annulus appears mildly calcified. The leaflets are mildly thickened. There is no evidence of stenosis. There is mild regurgitation. Aortic valve: The valve is trileaflet. The leaflets are mildly thickened. There is no evidence of stenosis. There is no regurgitation. Tricuspid valve: Not well visualized. There is no evidence of stenosis. There is trace to mild regurgitation. Pulmonic valve: Not well visualized. There is no evidence of stenosis. There is no significant regurgitation. Aorta: Aortic root: The aortic root is not dilated. Ascending aorta: The ascending aorta is not dilated. Aortic arch: The aortic arch is not visualized. Pericardium: There is no pericardial effusion. Pulmonary arteries: Not well visualized. Systolic pressure is mildly increased, estimated to be 37 mm Hg. Systemic veins: Inferior vena cava: The vessel is normal in size. There is (>= 50%) respiratory change in the IVC dimension. Measurements Left ventricle Value Ref Aortic valve Value Ref PRINCESS, LAX 5.6 cm 4.2 - 5.8 Juanito diam, ED 1.9 cm ---- ESD, LAX (H) 4.6 cm 2.5 - 4.0 Peak v, S 1.1 m/sec ---- FS, LAX (L) 17 % 25 - 43 VTI, S 19.6 cm ---- PW, ED 0.6 cm 0.6 - 1.0 Mean grad, S 2.0 mm Hg ---- IVS/PW, ED 1.67 Peak grad, S 5.0 mm Hg ---- E', lat juanito, TDI (L) 6.5 cm/sec >=10.0 LVOT/AV, VTI ratio 0.95 --- - E/e', lat juanito, 16 TDI Mitral valve Value Ref E', med juanito, TDI 8.2 cm/sec >=7.0 Peak E 1.01 m/sec --- - E/e', med juanito, 12 Peak A 1.16 m/sec ---- TDI Decel time 177 ms ---- E', avg, TDI 7.4 cm/sec Peak grad, D 4.1 mm Hg ---- E/e', avg, TDI 14 <=14 Peak E/A ratio 0.9 --- - LVOT Value Ref Pulmonic valve Value Ref Peak walter, S 0.97 m/sec Peak v, S 0.64 m/sec ---- VTI, S 18.6 cm Peak grad, S 2.0 mm Hg ---- Mean grad, S 2 mm Hg Tricuspid valve Value Ref Ventricular septum Value Ref Peak RV-RA grad, S 34 mm Hg ---- IVS, ED 1.0 cm 0.6 - 1.0 Max TR walter 2.9 m/sec ---- Right ventricle Value Ref Aortic root Value Ref PRINCESS minor ax, A4C (H) 4.0 cm 1.9 - 3.5 Root diam 3.0 cm <4.1 mid Pressure, S 37 mm Hg Ascending aorta Value Ref AAo AP diam, S 2.8 cm ---- Left atrium Value Ref AP dim, ES (H) 4.40 cm 3.00 - Pulmonary artery Value Ref 4.00 Pressure, S 37.0 mm Hg ---- ML dim, A4C 4.1 cm SI dim, A4C 4.6 cm Inferior vena cava Value Ref Vol/bsa, ES, 1-p 26 ml/m^2 12 - 37 Diam 1.2 cm ---- A4C Vol/bsa, ES, A/L 25 ml/m^2 16 - 34 Right atrium Value Ref ML dim, ES, A4C 4.0 cm 2.6 - 4.4 SI dim, ES, A4C 4.3 cm 3.4 - 5.3 Estimated RAP 3 mm Hg Legend: (L) and (H) dain values outside specified reference range. Prepared and electronically signed by Vincent Healy MD 07/08/2019 10:10
[2019-07-08] MEDS: Loperamide CAP* 2 MG PO SCH (10:30)
[2019-07-08] MEDS: Carvedilol TAB* 6.25 MG PO SCH (10:30)
--- NOTE | 2019-07-08 11:31 | TRS ---
CC: Dr. Yuan; Dr. Healy; Dr. Delcid, [facility] TRANSFER SUMMARY: DATE OF ADMISSION: 07/07/19 DATE OF TRANSFER: 07/08/19 PRIMARY CARE PROVIDER: Dr. Yuan. DISPOSITION AT TRANSFER: The patient is being transferred to a [facility] at [facility] for further evaluation and treatment. DISCHARGE DIAGNOSES: 1. Non-ST elevation myocardial infarction. 2. Cardiomyopathy. SECONDARY DIAGNOSES: 1. History of known coronary artery disease, status post stenting 7 years ago at [facility]. 2. Diabetes type 2. 3. History of congestive heart failure in the past. 4. History of right biceps rupture. 5. History of arterial insufficiency of the left lower extremity with venous stasis ulcers. 6. History of chronic diarrhea. DIAGNOSTIC STUDIES/LAB DATA: On 07/08/19, white blood cell count of 10.1, hemoglobin of 12.9, hemato crit of 38, MCV of 99, and platelets of 173. PTT last obtained at 4 a.m. on 07/08/19 was 110. Basic metabolic panel obtained in the morning of 07/08/19 showed sodium of 134, potassium 4.8, chlori de 111, carbon dioxide 20, BUN 24, creatinine 1.14. The patient's troponin peaked at 7.02 at 4 a.m. on 07/08/19 and is down to 6.08 at 7 a.m. on the same day. The patient's hemoglobin A1c was 6.7. Transthoracic echocardiogram obtained today, impression: "Left ventricular systolic function severel y reduced with estimated ejection fraction of 20% to 25% with severe diffuse hypokinesis with regiona l variations. The apex is thin and aneurysmal. Probable calcified thrombus in the left ventricle ap ex. Right ventricular systolic function is normal. Mitral valve with no evidence of stenosis with m ild regurgitation. Aortic valve with no evidence of stenosis and no regurgitation. Tricuspid valve with mild regurgitation. Pulmonary artery systolic pressures of 37 mmHg. Compared with study of 201 4, there is notable change. CONSULTATIONS DURING THE HOSPITAL STAY: Included Dr. Healy from Cardiology. HOSPITALIZATION COURSE: Chris Conte is a 58-year-old male with history of coronary artery disease, who presented to the hospital complaining of chest pain. For further details, please see the patient' s history and physical dictated by Flakita Estrella at admission. Shortly after admission, the patient w as started on heparin drip. His troponins continued to be trending up, although his chest pain resol jami. The patient was seen by Dr. Healy for consultation in the morning with initially planned for ca rdiac catheterization, but due to severe cardiomyopathy discovered on echocardiogram, Dr. Healy refer red the patient to a Tertiary Care Center. Dr. Healy talked with Dr. Delcid, who accepted the [facility] for transfer for a high risk cardiac catheterization in consideration of coronary artery bypass grafting if necessary. The patient is being transferred with medications during transfer including n itroglycerin sublingually 0.4 mg every 5 minutes for chest pain to repeat x3 doses as needed and to m aintain systolic blood pressures above 100. The patient is also going to be placed and continued on heparin drip. Currently during the dictation , his heparin drip is 700 units an hour, but it may change prior to the patient's transfer. PHYSICAL EXAMINATION AT THE TIME OF DISCHARGE: Blood pressure of 138/69, heart rate of 84 and regula r, respiratory rate 16, oxygen saturation 99% on room air, temperature 97.8. General: The patient i s a very pleasant 58-year-old male who is in no acute distress, alert, awake, and oriented x3. HEENT : Head: Atraumatic, normocephalic. Eyes: Pupils are equal, reactive to light and accommodation. O ropharynx is clear. Mucosa moist. Neck: Supple. No JVD. No bruits bilaterally. Cardiovascular: Regular rate and rhythm. No murmur. Respiratory: Clear to auscultation bilaterally. Abdomen: Sof t, nontender. Bowel sounds are present in all 4 quadrants. Extremities: Venous stasis discoloratio n of skin noted in bilateral lower extremities. There is no edema. Pulses are +2 bilaterally. Ther e is no clubbing or cyanosis. Please note that this is a short summary of the patient's hospital stay . Please refer to further medical records for details. TIME SPENT: Approximately 40 minutes was spent on the patient's discharge. [id number]/[facility] #: [id number]
--- NOTE | 2019-07-08 12:31 | CONS ---
CC: Dr. Jose Delcid, [facility] Cardiology CARDIOLOGY CONSULTATION: DATE OF CONSULT: 07/08/19 INDICATION FOR CONSULTATION: Non-STEMI, coronary artery disease, cardiomyopathy, ICD. HISTORY OF PRESENT ILLNESS: The patient is a 58-year-old gentleman with extensive cardiac history. The patient has a history of non-ischemic cardiomyopathy with a known ejection fraction of 20%. The patient has a history of multiple caths and multiple stents, both through his LAD and left circumflex artery. The patient states he was at home yesterday when he started having crushing chest pain, ene phoresis, radiation of this discomfort down his left arm. The patient came to the emergency room. I n the emergency room, the patient was treated with heparin, nitroglycerin. The patient eventually be came pain-free. The patient's EKG shows normal sinus rhythm with ventricularly paced, so EKG changes could not be kavya luated. This morning, the patient is completely pain-free. He does complain of back pain after sleep ing in the hospital bed but denies any angina, denies any shortness of breath, denies any orthopnea o r PND. No palpitations. No lightheadedness, dizziness, or syncope. PAST MEDICAL HISTORY: Significant for: 1. Ischemic cardiomyopathy. 2. History of multiple stents. 3. Diabetes. 4. Peripheral vascular disease. 5. Congestive heart failure. 6. Cardiomyopathy. 7. Chronic diarrhea. PAST SURGICAL HISTORY: 1. Biceps repair in the past. 2. ICD implantation. OUTPATIENT MEDICATIONS: 1. Coumadin as directed for apical thrombus. 2. Tramadol 50 mg as needed. 3. Spironolactone 12.5 mg a day. 4. Ramipril 5 mg a day. 5. Loperamide 4 mg b.i.d. 6. Insulin as directed. 7. Plavix 75 mg a day. 8. Carvedilol 12.5 mg once a day. 9. Atorvastatin 40 mg a day. ALLERGIES: To IODINE CONTRAST allergy, PENICILLIN, SHELLFISH. FAMILY HISTORY: Father had a history of myocardial infarction. Brother of a myocardial infarct ion. SOCIAL HISTORY: He is . He is retired. He denies tobacco or alcohol use. He does not get an y regular exercise. REVIEW OF SYSTEMS: Negative for fevers or chills. Negative for changes in bowel or bladder habits. Negative for changes in weight. PHYSICAL EXAM: Height is 5 feet 7 inches, weight is 181 pounds. Temperature 97.8, heart rate is 84, blood pressure 128/69, respiratory rate is 16, oxygen saturation 99% on room air. Sclerae anicteric . Oropharynx has very poor dentition. There is no erythema. Carotids are 2+ without bruits. JVD i s normal. Thyroid is normal. Cardiac Exam: Distant heart sound, S1, S2 without any murmurs, rubs, o r gallops. PMI is displaced laterally. Lungs are clear to auscultation bilaterally. No dullness to percussion. Abdomen is obese, soft, nontender, nondistended with normoactive bowel sounds. Extremit ies show 1+ edema. He has poor pulses in his dorsalis pedis and popliteal. The patient is awake, al ert, and oriented. He moves all 4 extremities equally. DIAGNOSTIC STUDIES/LAB DATA: CBC: Hemoglobin 12, hematocrit 38, platelet counts are normal. Chemis tries within normal limits. BUN 24, creatinine 1.1. Peak troponin level was 7.02. AST and ALT are normal. An echocardiogram today demonstrates severe LV dysfunction, ejection fraction of 15 to 20%, moderate tricuspid regurgitation with no evidence of pulmonary hypertension. No significant disease to the ao rtic and mitral valve. IMPRESSION: This is a 58-year-old gentleman with a history of ischemic cardiomyopathy, history of co ronary artery disease, history of ICD, who is admitted to the hospital with non-ST elevation myocardi al infarction. The patient was started on heparin. The patient is currently pain-free. The patient's EKG is ventricularly paced, so ischemic changes could not be evaluated. PLAN/RECOMMENDATIONS: For now, my recommendation is that the patient undergo cardiac catheterization because of the severe LV dysfunction and the fact that he is known to [facility], the patient will be transferred to [facility] under the care of Dr. Delcid. The patient will likely need cardiac catheterization and adjustment of his medical therapy. This case of discussed with Dr. Read and Dr. Delcid for transfer. [id number]/[facility] #: [id number]
[2019-07-08 17:26] VITALS: BP 120/67
[2019-07-09] MEDS ORDERED: Warfarin TAB(*) 5 MG PO SCH (17:00)
--- NOTE | 2019-07-17 20:32 | TRS ---
TRANSFER SUMMARY: ADDENDUM: CONDITION AT TRANSFER: Stable. [id number]/[facility] #: [id number] MTDD
== END 2019-07-08 17:39 | disposition short-term general hospital (02) | DRG 281 ==
LOC: ED 15:25 → MEDTELE 18:46 → OBSVTOIN 18:46 → MEDTELE 20:22
PROVIDERS: ADMIT Internal Medicine; ATTEND Internal Medicine
DX: I21.4 Non-ST elevation (NSTEMI) myocardial infarction (principal); I42.8 Other cardiomyopathies; N17.9 Acute kidney failure, unspecified; I25.10 Atherosclerotic heart disease of native coronary artery without angina pectoris; I25.5 Ischemic cardiomyopathy; E11.51 Type 2 diabetes mellitus with diabetic peripheral angiopathy without gangrene; I50.9 Heart failure, unspecified; K52.9 Noninfective gastroenteritis and colitis, unspecified; E11.319 Type 2 diabetes mellitus with unspecified diabetic retinopathy without macular edema; E78.00 Pure hypercholesterolemia, unspecified; E78.5 Hyperlipidemia, unspecified; I11.0 Hypertensive heart disease with heart failure; G47.30 Sleep apnea, unspecified; E66.9 Obesity, unspecified; F17.210 Nicotine dependence, cigarettes, uncomplicated; E87.5 Hyperkalemia; I08.1 Rheumatic disorders of both mitral and tricuspid valves; Z95.5 Presence of coronary angioplasty implant and graft; Z95.810 Presence of automatic (implantable) cardiac defibrillator; Z88.0 Allergy status to penicillin; Z91.041 Radiographic dye allergy status; Z91.013 Allergy to seafood; Z82.49 Family history of ischemic heart disease and other diseases of the circulatory system; Z68.28 Body mass index [BMI] 28.0-28.9, adult; I25.2 Old myocardial infarction
CPT/HCPCS: 36415; 71045; 76705; 80048; 80053; 83036; 83605; 83735; 84484; 85025; 85610; 85730; 87641; 93005; 93306; 99284; A9270-GY; C8929; J1644; J3475

== ENCOUNTER 2019-08-22 17:01 | Emergency (ER) | payer OTHER, MEDICARE ==
[2019-08-22] MEDS ORDERED: EPINEPHrine SYR 0.1MG/ML* SYRINGE ONE ×3 (17:07→17:14)
[2019-08-22 17:14] VITALS: BP 000/000
--- OUTSIDE RECORDS SUMMARY | 2019-08-22 17:16 | XMS REPORT | Summary of Care ---
:1960 Author Organization [facility] Address [address] [place] [address] Care Team Providers Name Role Phone Griffin Yuan Primary Care Provider Sylwia Srinivasan RN Unavailable Reason for Visit Reason Comments Follow Up Encounter Details Date Type Department Care Team Description 08/07/2019 Office Visit [facility] Katie Razo, Situational [facility] [employer] (Primary Dx) [address] [facility] [address] [place], [place] [id number] [place] [address] [phone] Allergies Active Allergy Reactions Severity Noted Date Comments Penicillins Hives 05/25/2004 Shell Fish Anaphylaxis 05/25/2004 Tape: Silk Or Adhesive Dermatologic Reaction 07/09/2015 Paper tape documented as of this encounter (statuses as of 08/07/2019) Medications Medication Sig Dispensed Refills Start Date End Date Status Pen Olympia 31G X 8 1 Package by Does 1 Each 5 02/08/2010 Active MM Does not apply not apply route TWO Misc TIMES DAILY BEFORE MEALS. humalog pen needles Blood Glucose 1. Brand: per meter type 100 Strip 5 10/20/2011 Active Monitoring Suppl 2. Dx:Diabetes (BLOOD GLUCOSE TEST 3. Insulin dependent STRIPS 4. Test Blood Glucose 3 time(s) A DAY STRP)Indications: Type II or unspecified type diabetes mellitus without mention of complication, not stated as uncontrolled nitroglycerin Place 1 Tab under 1 Bottle 3 12/29/2015 Active (NITROSTAT) 0.4 MG tongue EVERY FIVE Sublingual SL Tab MINUTES NEEDED for chest pain. Blood Glucose Monitor 1 Each by Does not 1 Device 0 07/28/2016 Active Software Does not apply route apply Device DIRECTED. uncontrolled insulin dependent diabetes. Brand: insurance preferred Dx: E11.9 Glucose Blood In 100 Strips by In 100 Strip 5 07/28/2016 Active Vitro Strip Vitro route THREE TIMES DAILY. uncontrolled insulin dependent diabetes Dx E11.9 Lancets Does not by Does not apply 100 Each 5 07/28/2016 Active apply Misc route. Brand:insurance prefferred Dx: E11.9 Insulin dependent Test Blood Glucose 3 time(s) A DAY Acetaminophen Take 500 mg by 0 Active (TYLENOL 8 HOUR PO) mouth NEEDED. spironolactone Take 0.5 Tabs by 45 Tab 3 11/14/2018 Active (ALDACTONE) 25 MG mouth DAILY. Oral Tab clopidogrel (PLAVIX) Take 1 Tab by mouth 90 Tab 3 11/29/2018 Active 75 MG Oral Tab DAILY. loperamide (IMODIUM) TAKE 2 CAPSULES BY 120 Cap 3 04/08/2019 Active 2 MG Oral Cap MOUTH EVERY MORNING AND EVENING tramadol (ULTRAM) 50 Take 1-2 Tabs by 120 Tab 5 04/10/2019 Active MG Oral Tab mouth EVERY EIGHT HOURS NEEDED (pain). Max Daily Amount: 300 mg. ramipril (ALTACE) 5 Take 1 Cap by mouth 90 Cap 3 07/07/2019 Active MG Oral Cap DAILY. rivaroxaban (XARELTO) Take 1 Tab by mouth 30 Tab 0 07/12/2019 Active 20 MG Oral Tab DAILY. Clindamycin HCl 300 TAKE 1 CAPSULE BY 0 06/04/2019 Active MG Oral Cap MOUTH THREE TIMES A DAY Insulin Glargine Inject 18 Units 15 mL 3 07/23/2019 Active (LANTUS SOLOSTAR) 100 beneath the skin UNIT/ML Subcutaneous DAILY. Solution Pen-injectorIndicatio ns: Type 2 diabetes mellitus without complication, with long-term current use of insulin (HCC) atorvastatin TAKE 1 TABLET BY 90 Tab 3 08/04/2019 Active (LIPITOR) 80 MG Oral MOUTH DAILY Tab carvedilol (COREG) TAKE 1 TABLET BY 180 Tab 3 08/05/2019 Active 12.5 MG Oral MOUTH TWICE A DAY TabIndications: Benign hypertension Additional information Patient taking differently: 37.5 mg DIRECTED, Indications: 12.5 mg q am, 25 mg q pm, Reported on 08/07/2019 8:45 AM escitalopram (LEXAPRO) 10 MG Oral Take 1 Tab by mouth 30 Tab 1 08/07/2019 Active TabIndications: Situational DAILY. anxiety documented as of this encounter (statuses as of 08/07/2019) Active Problems Problem Noted Date NSTEMI (non-ST elevated myocardial infarction) 07/09/2019 Overview: Presented to OSH after episode of chest pain. Troponin barrie to peak of 7 which prompted transfer to [facility]. EKG with no ischemic changes. No current chest pain. Heparin drip continued and cardiac cath toda y which showed LM, LAD and LCX disease. CT surgery consulted who believe that he is not a candidate for CABG. Awaiting decision if patient could potentially have PCI. Possible discharge on medical therapy if not PCI candidate. - ASA, Lipitor 80, Coreg 12.5mg bid Chronic systolic heart failure 07/09/2019 Overview: Secondary to ischemic cardiomyopathy. Has AICD and Biventricular pacemaker placed in 2008 when EF was 20-25%. On Coreg 12.5 BID, Ramipril and Aldactone 25mg at home. Echo at OSH this admission showed EF 25-30% which is down from 40-45% 02/2017. He is not in exacerbation at this time. Continue Coreg. Ramipril held prior to cath. May restart Aldactone later this admission. -Coreg 12.5 BID Atrial fibrillation, chronic 04/11/2019 Overview: In history. Has biventricular pacemaker. On warfarin also for chronic LV thrombus. 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 of anticoagulant therapy 02/09/2010 Overview: Switched from Warfarin to Xarelto during the 07/08/19-07/11/19 [facility] admission Managed by [facility] Referring Provider: Arabella Indication: Afib Target Range: 2.0-3.0 Duration: Indefinite Additional factors influencing anticoagulation: CHADS2 score of 3 for LV dysfunction, diabetes, hypertension [id number] score of 4 for LV dysfunction, diabetes, hypertension, vascular disease Clopidogrel significantly increases bleeding risk Spironolactone decreases warfarin effect Updated Referral: 04/2018, 05/28/19 Updated [facility] Orders: 04/29/18, 06/09/19 Tubular adenoma 02/08/2010 Overview: Colonoscopy/polypectomy 01/29 Dr Adames Cardiomyopathy, ischemic 11/01/2009 Overview: Known S/P ICD (internal cardiac defibrillator) procedure 08/26/2009 Overview: 08/19/09: Biventricular pacemaker placement [facility] DEFIBRILLATOR GENERATOR IMPLANTED: Promote Plus, model HV2001, serial number [id number]. RIGHT ATRIAL LEAD: Model 1888, serial number [id number]. LEFT VENTRICULAR LEAD: Model 1158T, serial number [id number]. RIGHT VENTRICULAR LEAD/COIL: Model 7121, serial number [id number]. 02/29/12: [facility] Report There have been no episodes of atrial fibrillation or ventricular tachycardia. ICD function appears normal. This device should reach the MARYCRUZ in 2.4 to 6 years. Essential hypertension, benign 10/06/2008 Overview: Controlled this admission. On Ramipril at home which has been held for cath. Continue Coreg 12.5 BID Mixed hyperlipidemia 05/15/2008 Overview: Lipitor 80mg Rotator cuff tear 05/15/2008 Overview: S/p right shoulder arthoscopy Dr Akins 02/26 Tobacco use disorder 09/19/2007 Overview: Known Type 2 diabetes mellitus without complication, with long-term current use of insulin Overview: Has been uncontrolled. Recheck A1c,10units Lantus basal + ISS Obesity, unspecified 09/19/2007 Overview: bmi 31 04/2013 Weight 249 lb 2008 Weight 190 pounds 04/2013 Coronary artery disease 09/19/2007 Overview: PCI to LAD, Cx. Most recently RCA stents x3 in 2008. On ASA and Plavix Background diabetic retinopathy 09/19/2007 Overview: Dr Castro 02/26 documented as of this encounter (statuses as of 08/07/2019) Resolved Problems Problem Noted Date Resolved Date Left ventricular thrombosis 04/11/2019 07/17/2019 ST elevation myocardial infarction (STEMI) 04/11/2019 07/17/2019 Noncompliance with diabetes treatment 04/30/2018 07/17/2019 ICD (implantable cardioverter-defibrillator) malfunction 07/13/20152014 Left ventricular thrombus 03/01/2015 07/17/2019 Overview: Chronic since 2014. On warfarin at home, INR subtherapeutic at 1.25 on admission. Other certain sequelae of myocardial infarction, not elsewhere 01/07/2014 classified Leg wound, left 08/19/2012 01/19/2014 Claudication [...] Other certain sequelae of myocardial infarction, not elsewhere 02/08/2010 classified Congestive heart failure 08/26/2009 07/17/2019 Overview: Left ventricular ejection fraction 20-25% Ischemic cardiomyopathy S/p biventricular pacemaker and ICD placement Dr Chavez [facility] 07/30 Calcifying tendinitis of shoulder 02/06/2008 05/09/2013 documented as of this encounter (statuses as of 08/07/2019) Immunizations Name Administration Dates Next Due Influenza (IM) Preservative Free 07/22/2019, 08/01/2018, 08/13/2017, 08/25/2016, 08/12/2015, 08/14/2014, 08/21/2013, 07/15/2012, 06/30/2011, 08/06/2010 Influenza Vaccine Whole 08/21/2009, 09/04/2007 Influenza Virus Vaccine - Whole 09/04/2006 PNEUMOCOCCAL POLYSACCHARIDE VACCINE 12/09/2007 ZOSTER (SHINGRIX) VACCINE 07/22/2019 documented as of this encounter Social History [...] Sign Reading Time Taken Comments Blood Pressure 88/56 08/07/2019 8:39 AM EDT Pulse 86 08/07/2019 8:39 AM EDT Temperature - - Respiratory Rate - - Oxygen Saturation 98% 08/07/2019 8:39 AM EDT Inhaled Oxygen Concentration - - Weight 82.1 kg (181 lb) 08/07/2019 8:39 AM EDT Height 170.2 cm (5' 7") 08/07/2019 8:39 AM EDT Body Mass Index 28.35 08/07/2019 8:39 AM EDT documented in this encounter Patient Instructions Patient InstructionsKatie Razo FNP - 08/07/2019 8:40 AM EDTTrial of lexapro in am for anxiety Follow up in a month Keep follow up cardiology documented in this encounter Progress Notes Katie Razo FNP - 08/07/2019 8:40 AM EDT PATIENT: Chris Conte : 1960 DATE OF SERVICE: 08/07/2019 Chief Complaint Patient presents with Follow Up SUBJECTIVE: Chris Conte is a 58-y.o. male who is here with concerns about possible anxiety spells. These are occurring at night around bedtime when he feels some lower mid chest discomfort and fearsof not waking up. The symptoms resolve after getting up and walking about the house. He has no similar symptoms during the day. He is having racing thoughts. He is waiting to hear about going to [facility] for consideration for heart surgery. He is very worried. He has cut down smoking but still having about 2 a day. He denies any increased shortness of breath, dizziness or palpitations. Patient Active Problem List Diagnosis Date Noted NSTEMI (non-ST elevated myocardial infarction) (HCC) 07/09/2019 Presented to OSH after episode of chest pain. Troponin barrie to peak of 7 which prompted transfer to [facility]. EKG with no ischemic changes. No current chest pain. Heparin drip continued and cardiac cath today which showed LM, LAD and LCX disease. CT surgery consulted who believe that he is not a candidate for CABG. Awaiting decision if patient could potentially have PCI. Possible discharge on medical therapy if not PCI candidate. - ASA, Lipitor 80, Coreg 12.5mg bid Chronic systolic heart failure (HCC) 07/09/2019 Secondary to ischemic cardiomyopathy. Has AICD and Biventricular pacemaker placed in 2008 when EF was 20-25%. On Coreg 12.5 BID, Ramipril and Aldactone 25mg at home. Echo at OSH this admission showedEF 25-30% which is down from 40- 45% 02/2017. He is not in exacerbation at this time. Continue Coreg. Ramipril held prior to cath. May restart Aldactone later this admission. -Coreg 12.5 BID Atrial fibrillation, chronic 04/11/2019 In history. Has biventricular pacemaker. On warfarin also for chronic LV thrombus. 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 02/09/2010 Switched from Warfarin to Xarelto during the 07/08/19-07/11/19 [facility] admission Managed by [facility] Referring Provider: Arabella Indication: Afib Target Range: 2.0-3.0 Duration: Indefinite Additional factors influencing anticoagulation: CHADS2 score of 3 for LV dysfunction, diabetes, hypertension [id number] score of 4 for LV dysfunction, diabetes, hypertension, vascular disease Clopidogrel significantly increases bleeding risk Spironolactone decreases warfarin effect Updated Referral: 04/2018, 05/28/19 Updated ACS Orders: 04/29/18, 06/09/19 Tubular adenoma 02/08/2010 Colonoscopy/polypectomy 01/29 Dr Adames Cardiomyopathy, ischemic 11/01/2009 Known S/P ICD (internal cardiac defibrillator) procedure 08/26/2009 08/19/09: Biventricular pacemaker placement [facility] DEFIBRILLATOR GENERATOR IMPLANTED: Promote Plus, model XB9140, serial number [id number]. RIGHT ATRIAL LEAD: Model 1888, serial number [id number]. LEFT VENTRICULAR LEAD: Model 1158T, serial number [id number]. RIGHT VENTRICULAR LEAD/COIL: Model 7121, serial number [id number]. 02/29/12: Arrhythmia Center Report There have been no episodes of atrial fibrillation or ventricular tachycardia. ICD function appearsnormal. This device should reach the MARYCRUZ in 2.4 to 6 years. Essential hypertension, benign 10/06/2008 Controlled this admission. On Ramipril at home which has been held for cath. Continue Coreg 12.5 BID Mixed hyperlipidemia 05/15/2008 Lipitor 80mg Rotator cuff tear 05/15/2008 S/p right shoulder arthoscopy Dr Akins 02/26 Tobacco use disorder 09/19/2007 Known Type 2 diabetes mellitus without complication, with long-term current use of insulin (HCC) 09/19/2007 Has been uncontrolled. Recheck A1c,10units Lantus basal + ISS Obesity, unspecified 09/19/2007 bmi 31 04/2013 Weight 249 lb 2008 Weight 190 pounds 04/2013 Coronary artery disease 09/19/2007 PCI to LAD, Cx. Most recently RCA stents x3 in 2008. On ASA and Plavix Background diabetic retinopathy (HCC) 09/19/2007 Dr Castro 02/26 Current Outpatient Medications Medication Sig Acetaminophen (TYLENOL 8 HOUR PO) Take 500 mg by mouth NEEDED. atorvastatin (LIPITOR) 80 MG Oral Tab TAKE 1 TABLET BY MOUTH DAILY Blood Glucose Monitor Software Does not apply Device 1 Each by Does not apply route DIRECTED. uncontrolled insulin dependent diabetes. Brand: insurance preferred Dx: E11.9 Blood Glucose Monitoring Suppl (BLOOD GLUCOSE TEST STRIPS STRP) 1. Brand : per meter type 2. Dx:Diabetes 3. Insulin dependent 4. Test Blood Glucose 3 time(s) A DAY carvedilol (COREG) 12.5 MG Oral Tab TAKE 1 TABLET BY MOUTH TWICE A DAY ( Patient taking differently: 37.5 mg DIRECTED. Indications: 12.5 mg q am, 25 mg q pm) Clindamycin HCl 300 MG Oral Cap TAKE 1 CAPSULE BY MOUTH THREE TIMES A DAY clopidogrel (PLAVIX) 75 MG Oral Tab Take 1 Tab by mouth DAILY. escitalopram (LEXAPRO) 10 MG Oral Tab Take 1 Tab by mouth DAILY. Glucose Blood In Vitro Strip 100 Strips by In Vitro route THREE TIMES DAILY. uncontrolled insulin dependent diabetes Dx E11.9 Insulin Glargine (LANTUS SOLOSTAR) 100 UNIT/ML Subcutaneous Solution Pen- injector Inject 18 Units beneath the skin DAILY. Lancets Does not apply Misc by Does not apply route. Brand:insurance prefferred Dx: E11.9 Insulin dependent Test Blood Glucose 3 time(s) A DAY loperamide (IMODIUM) 2 MG Oral Cap TAKE 2 CAPSULES BY MOUTH EVERY MORNING AND EVENING nitroglycerin (NITROSTAT) 0.4 MG Sublingual SL Tab Place 1 Tab under tongue EVERY FIVE MINUTES NEEDED for chest pain. Pen Olympia 31G X 8 MM Does not apply Misc 1 Package by Does not apply route TWO TIMES DAILYBEFORE MEALS. humalog pen needles ramipril (ALTACE) 5 MG Oral Cap Take 1 Cap by mouth DAILY. rivaroxaban (XARELTO) 20 MG Oral Tab Take 1 Tab by mouth DAILY. spironolactone (ALDACTONE) 25 MG Oral Tab Take 0.5 Tabs by mouth DAILY. tramadol (ULTRAM) 50 MG Oral Tab Take 1-2 Tabs by mouth EVERY EIGHT HOURS NEEDED (pain). Max Daily Amount: 300 mg. No current facility-administered medications for this visit. OBJECTIVE: BP (!) 88/56 (BP Location: Right arm, Patient Position: Sitting) | Pulse 86 | Ht 5' 7" (1.702 m) | Wt 181 lb (82.1 kg) | SpO2 98% | BMI 28.35 kg/m He is alert and in no distress. Chest is clear, no wheezing or rales. Normal symmetric air entry throughout both lung black. Heart RRR. BP Readings from Last 3 Encounters: 08/07/19 (!) 88/56 07/30/19 132/70 07/17/19 100/78 His monitor is brought in and reads 90/56. His other home readings are generally a little higher but below 140/90. ELISE-7 Screening Over the last 2 weeks, how often have you felt nervous, anxious or on edge?: Nearly every day Over the last 2 weeks, how often have you not been able to stop or control worrying?: Nearly every day Over the last 2 weeks, how often have you worried too much about different things?: Nearly every day Over the last 2 weeks, how often have you had trouble relaxing?: Nearly every day Over the last 2 weeks, how often have you been so restless you couldn't sit still?: Several days Over the last 2 weeks, how often have you become easily annoyed or irritable: Not at all sure Over the last 2 weeks, how often have you felt afraid as if something awful might happen?: Nearly every day ELISE-7 Total Score: 16 How difficult have these problems made it for you to do your work, take care of things at home, or get along with other people?: Somewhat difficult ASSESSMENT: ICD-9-CM ICD-10-CM 1. Situational anxiety 300.09 F41.8 escitalopram (LEXAPRO) 10 MG Oral Tab Patient Instructions Trial of lexapro in am for anxiety Follow up in a month Keep follow up cardiology Author: MEY Moreno 08/07/2019 09:13 documented in this encounter Plan of Treatment Date Type Specialty Care Team Description 08/25/2019 Office Visit Gastroenterology Fatmata Escobar NP [address] [place] [address] 09/04/2019 Office Visit Family Practice Katie Razo FNP [address] [place] [address] [phone] 09/17/2019 Office Visit Cardiology Maria Del Carmen Elliott CRNP [address] [place] [address] 11/04/2019 Office Visit Vascular Surgery Odalis Randhawa MD [address] [place] [address] 12/09/2019 [facility] Health Maintenance Due Date Last Done Comments Diabetic Eye Exam 1960 MEDICARE ANNUAL WELLNESS 05/17/2013 05/17/2012 VISIT FOOT EXAM 01/18/2018 01/18/2017, 01/18/2017, 02/11/2014, Additional history exists ZOSTER IMMUNIZATION SERIES 09/16/2019 07/22/2019 (2 of 2) HEMOGLOBIN A1C 01/19/2020 07/21/2019, 07/09/2019, 04/10/2019, Additional history exists DEPRESSION SCREENING 07/17/2020 07/17/2019 LIPID DISORDER SCREENING 08/04/2020 08/04/2019, 07/21/2019, 07/10/2019, Additional history exists COLONOSCOPY SCREENING 03/13/2022 03/13/2017, 03/13/2017, 02/07/2010, Additional history exists PNEUMOCOCCAL 0-64 YRS Completed 12/09/2007 INFLUENZA VACCINE Completed 07/22/2019, 08/01/2018, 08/13/2017, Additional history exists HPV IMMUNIZATION SERIES Aged Out No longer eligible based on patient's age to complete this topic MENINGOCOCCAL VACCINE IMM Aged Out No longer eligible based on patient's age to complete this topic documented as of this encounter Goals Goal Patient Goal Associated Recent Patient-Stated? Author Type Problems Progress Blood Pressure Blood Pressure Essential 88/56 No [place], < 140/90 hypertension, (08/07/2019 Griffin Gray, benign 8:39 AM EDT) Note: Hypertension Care Plan Based [...] Educational Resources. record my blood pressure results. Erna is safe and secure way for you [...] Educational Resources: National Heart, Lung, & Blood [place] http://nhlbi.nih.gov/hbp/index.html The DASH Diet Eating Plan http://www.nhlbi.nih.gov/health/health-topics/ topics/dash/ Academy of Nutrition & DIetetics http://eatright.org National Smoking Cessation Site http://smokefree.gov Blood Pressure < Blood Pressure 88/56 (08/07/2019 8:39 No Katie Razo FNP 140/90 AM EDT) [...] Weight increase vs. 18 mo CHF 18 (08/07/2019 8:39 AM EDT) Katie Kitchen FNP min (lbs) [...] the left). Smoking Cessation COPD No Griffin Yaun MD Note: This is an individualized treatment (COPD) goal for Chris Conte: Quit smoking immediately! Your provider has information and resources that may help you to quit. Glycohemoglobin A1c < 7.0 Diabetes 6.6 (07/21/2019 8:52 No Katie Razo FNP AM EDT) Note: This is an individualized treatment (diabetes control, HgbA1C) goal for Chris Conte: Displayed above is your progress towards your HgbA1C goal. Your goal is shown above (on the left); your most recent HgbA1C is shown on the right. Note that lower numbers are better. Keep immunizations current Lifestyle No Katie Razo FNP Note: This is an individualized lifestyle goal for Chris Conte: Please be sure to keep up-to-date on recommended immunizations. For example, this would include a yearly influenza vaccine. Immunization status can be seen by looking at the Health Maintenance sections of your e[facility], Plan of Care, and any After Visit Summaries. Consume a [id number] diet Lifestyle No Katie Razo FNP Note: This is an individualized lifestyle goal for Chris Conte: Please do not add additional salt to your food. Additional salt may lead to fluid retention and worsen your congestive heart failure. Take all prescribed medications as Self-management No Katie Razo FNP directed Note: This is an individualized [...] ongoing basis. Check your weight daily Self-management No Katie Razo FNP Note: This is an individualized self-management goal for Chris Conte: Please check your weight daily. Refer to the accompanying CHF treatment goal and call your doctor immediately for further instructions on how to respond to unexpected weight gain. documented as of this encounter Implants Implanted Type Area Quality Improvement Coordinator (Rn) Device Shelf Model / Identifier Expiration Serial / Date Lot 2.5 X 12 Xience - [id number] Circumflex VALDEZ VASCULAR [id number] / Implanted: Qty: 1 on 10/05/2008 at [facility] [id number] / [id number] 2.5/32 Taxus Liberte - [id number] LAD [place] [id number] / Implanted: Qty: 1 on 05/21/2009 at [facility] / [id number] Promote Plus Icd [id number] - [id number] Left: Chest [facility] ZAY 11/21/2010 [id number] / Implanted: Qty: 1 on 08/19/2009 at [facility]/PACESET [id number] / TER Lead Tendril # [id number]-52 - [id number] Left: Chest ST ZAY 05/21/2012 [id number] -[id number] / Implanted: Qty: 1 on 08/19/2009 at [facility]/PACESET [id number] / TER 7121/65 Durata Lead - [id number] Left: Chest [facility]AY 02/19/2012 7121/65 / Implanted: Qty: 1 on 08/19/2009 at [facility], [facility]. [id number] / 1158t Quickflex Lead - [id number] Left: Chest [facility] ZAY 03/21/2012 1158T / Implanted: Qty: 1 on 08/19/2009 at [facility], [facility]. [id number] / Biotenodesis Screw 8 X 12mm - [id number] Right: Biceps ARTHREX [id number] / Implanted: Qty: 1 on 02/21/2011 at [facility] / [id number] Quartet 1458q-86cm - [id number] N/A: Chest [facility] 03/21/2018 [id number] / Implanted: Qty: 1 on 07/12/2015 by Jack Chavez MD at [facility], [facility]. [id number] / Tyrx Large Absorbable Antibacterial Envelope - [id number] N/A: Chest [employer] 08/21/2015 [id number] / Implanted: Qty: 1 on 07/12/2015 by Jack Chavez MD at [facility] / [id number] Quadra Assura [id number] - [id number] N/A: Chest [facility] 03/21/2017 [id number] / Implanted: Qty: 1 on 07/12/2015 by Jack Chavez MD at [facility], [facility]. [id number] / Optisense Lead - [id number] N/A: Chest [facility] 04/20/2018 / Implanted: Qty: 1 on 07/12/2015 by Jack Chavez MD at [facility], [facility]. [id number] / documented as of this encounter Results Not on filedocumented in this encounter Visit Diagnoses Diagnosis Situational anxiety - Primary Other anxiety states documented in this encounter Insurance Payer Benefit Plan / Subscriber ID Effective Dates Phone Address Type Group AETNA COMMERCIAL AETNA [place] xxxxxxxxxx 2012-Present A[employer]na [place] MEDICARE MEDICARE PART A xxxxxxxxxxx 2012-Present Medicare & B Guarantor Name Account Type Relation to Date of Phone Billing Address Patient Chris Conte Personal/Family [address] (Home) [place], [place] [phone] (Work) documented as of this encounter Advance Directives Code Status Date Activated Date Inactivated Comments Full Code 07/08/2019 7:51 PM Does the patient have decision making capacity? Yes Order was discussed with: Patient I discussed all options and patient/surrogate requested and agreed to: Full Code
--- OUTSIDE RECORDS SUMMARY | 2019-08-22 17:16 | XMS REPORT | Summary of Care ---
:1960 Author Organization [facility] Address [address] [place] [address] Care Team Providers Name Role Phone Griffin Yuan Primary Care Provider Cathi Santillan Chronic Disease Nurse Educator Unavailable Sylwia Srinivasan RN Unavailable Kyleigh Vallecillo Post Acute Gis Database Administrator Unavailable Reason for Visit Reason Comments Follow Up 6 month check up Encounter Details Date Type Department Care Team Description 07/30/2019 Office Visit Maria Del Carmen Joy ASHD ( arteriosclerotic heart disease) (Primary Dx); Cardiology [employer] Ischemic cardiomyopathy; [address] [facility] Chronic systolic heart failure (HCC); [place] [address] [place] [address] Dyslipidemia; [phone] Essential hypertension; Paroxysmal atrial fibrillation (HCC) Allergies Active Allergy Reactions Severity Noted Date Comments Penicillins Hives 05/25/2004 Shell Fish Anaphylaxis 05/25/2004 Tape: Silk Or Adhesive Dermatologic Reaction 07/09/2015 Paper tape documented as of this encounter (statuses as of 07/30/2019) Medications Medication Sig Dispensed Refills Start Date End Date Status Pen [place] 31G X 8 1 Package by Does [...] 3 07/07/2019 Active MG Oral Cap DAILY. carvedilol (COREG) Take 1 Tab by mouth 60 Tab 0 07/07/2019 Active 12.5 MG Oral TWICE DAILY. TabIndications: Benign hypertension atorvastatin Take 1 Tab by mouth 30 Tab 11 07/11/2019 Active (LIPITOR) 80 MG Oral DAILY. Dose is Tab increased from 40 mg daily to 80 mg daily rivaroxaban (XARELTO) Take 1 Tab by mouth [...] complication, with long-term current use of insulin ([facility]) documented as of this encounter (statuses as of 07/30/2019) Active Problems Problem Noted Date NSTEMI (non-ST elevated myocardial infarction) 07/09/2019 Overview: Presented to OSH after episode of chest pain. Troponin barrie to peak of 7 which prompted transfer to [facility]. EKG with no ischemic changes. No current [...] Atherosclerosis of leg with intermittent claudication 04/29/2012 [employer] current use of anticoagulant therapy 02/09/2010 Overview: Switched from Warfarin to Xarelto during the 07/08/19-07/11/19 [facility] admission Managed by [place] [facility] Referring Provider: Arabella Indication: Afib Target Range: 2.0-3.0 Duration: Indefinite Additional factors influencing anticoagulation: CHADS2 score of 3 for LV dysfunction, diabetes, hypertension [id number] score of 4 for LV dysfunction, diabetes, hypertension, vascular disease Clopidogrel significantly increases bleeding risk Spironolactone decreases warfarin effect Updated Referral: 04/2018, 05/28/19 Updated [facility] Orders: 04/29/18, 06/09/19 Tubular adenoma 02/08/2010 Overview: Colonoscopy/polypectomy 01/29 Dr Adames Cardiomyopathy, ischemic 11/01/2009 Overview: Known S/P ICD (internal cardiac defibrillator) procedure 08/26/2009 Overview: 08/19/09: Biventricular pacemaker placement [facility] DEFIBRILLATOR GENERATOR IMPLANTED: Promote Plus, model PC9868, serial number [id number]. RIGHT ATRIAL LEAD: Model 1888, serial number [id number]. LEFT VENTRICULAR LEAD: Model 1158T, serial number [id number]. RIGHT VENTRICULAR LEAD/COIL: Model 7121, serial number [id number]. 02/29/12: Arrhythmia Center Report There have been [...] as of this encounter (statuses as of 07/30/2019) Resolved Problems Problem Noted Date Resolved Date [...] biventricular pacemaker and ICD placement Dr Chavez [facility] 07/30 Calcifying tendinitis of shoulder 02/06/2008 05/09/2013 documented as of this encounter (statuses as of 07/30/2019) Immunizations Name Administration Dates Next Due Influenza [...] Cigarettes 0.5 35 Smokeless Tobacco: Never Used Tobacco Cessation: Ready to Quit: No Comments: takes a few puffs every day [...] Sign Reading Time Taken Comments Blood Pressure 132/70 07/30/2019 9:05 AM EDT Pulse 88 07/30/2019 9:05 AM EDT Temperature - - Respiratory Rate 20 07/30/2019 9:05 AM EDT Oxygen Saturation 99% 07/30/2019 9:05 AM EDT Inhaled Oxygen Concentration - - Weight 81.5 kg (179 lb 9.6 oz) 07/30/2019 9:05 AM EDT Height 170.2 cm (5' 7") 07/30/2019 9:05 AM EDT Body Mass Index 28.13 07/30/2019 9:05 AM EDT documented in this encounter Patient Instructions Patient InstructionsMaria Del Carmen Elliott CRNP - 07/30/2019 9:00 AM EDTWill increase coreg to 12.5 in am and 25 mg in the evening Will do blood work today to recheck potassium Will refer to [facility] Check blood pressure once a day - keep in touch with readings Continue smoking cessation Follow up 6 weeks Prevent redmission and improve functional health status: CHF Instructions:weigh yourself every morning, take medication as prescribed , check for swelling in lower extremitites, eat low salt diet , balance activity and rest periods, know your Heart Failure Zones (Red, Yellow, Green) and fluid restriction 1.5 liters per day. documented in this encounter Plan of Treatment Date Type Specialty Care Team Description 08/05/2019 [facility] 08/07/2019 Office Visit Family Practice Katie Razo FNP [address] [place] [address] [phone] 09/17/2019 Office Visit Cardiology Maria Del Carmen Elliott CRNP [address] [place] [address] 11/04/2019 Office Visit Vascular Surgery Odalis Randhawa MD [address] [place] [address] 12/09/2019 [facility] Name Type Priority Associated Diagnoses Date/Time BASIC METABOLIC PANEL Lab Routine ASHD (arteriosclerotic 07/30/2019 9:43 AM EDT heart disease) MAGNESIUM LEVEL Lab Routine ASHD (arteriosclerotic 07/30/2019 9:43 AM EDT heart disease) Name Type Priority Associated Diagnoses Order Schedule BASIC METABOLIC PANEL Lab Routine ASHD (arteriosclerotic Expected: 2018 heart disease) (Approximate), Expires: 07/30/2020 MAGNESIUM LEVEL Lab Routine ASHD (arteriosclerotic Expected: 07/30/2019 heart disease) (Approximate), Expires: 07/30/2020 Health Maintenance Due Date Last Done Comments Diabetic Eye Exam 1960 MEDICARE ANNUAL WELLNESS 05/17/2013 05/17/2012 VISIT FOOT EXAM 01/18/2018 01/18/2017, 01/18/2017, 02/11/2014, Additional history exists ZOSTER IMMUNIZATION SERIES 09/16/2019 07/22/2019 (2 of 2) HEMOGLOBIN A1C 01/19/2020 07/21/2019, 07/09/2019, 04/10/2019, Additional history exists DEPRESSION SCREENING 07/17/2020 07/17/2019 LIPID DISORDER SCREENING 07/21/2020 07/21/2019, 07/11/2019, 07/10/2019, Additional history exists COLONOSCOPY SCREENING 03/13/2022 [...] Problems Progress Blood Pressure Blood Pressure Essential 132/70 No [place], < 140/90 hypertension, (07/30/2019 Griffin Gray, benign 9:05 AM EDT) Note: Hypertension Care Plan Based [...] Educational Resources. record my blood pressure results. [facility] is safe and secure way for you [...] Educational Resources: National Heart, Lung, & Blood [place] http://nhlbi.nih.gov/hbp/index.html The DASH Diet Eating Plan http://www.nhlbi.nih.gov/health/health-topics/ topics/dash/ Academy of Nutrition & DIetetics http://eatright.org National Smoking Cessation Site http://smokefree.gov Blood Pressure < Blood Pressure 132/70 (07/30/2019 Katie Kitchen FNP 140/90 9:05 AM EDT) Note: This is an individualized treatment (blood pressure) goal for Chris Conte: Displayed above (on the left) is your goal for blood pressure control. Your most recent blood pressure is also shown above, on the right. You should try to achieve blood pressures that are lower than your goal listed above (on the left). Weight increase vs. 18 mo CHF 19.6 (07/30/2019 9:05 AM Katie Kitchen FNP min (lbs) < 5 EDT) Note: This is an individualized treatment (congestive [...] number on the left). Smoking Cessation COPD Griffin Villasenor MD Note: This is an individualized treatment [...] and any After Visit Summaries. Consume a qc-pufxp-nzia diet Lifestyle No Katie Razo FNP Note: [...] of this encounter Implants Implanted Type Area Crepe Laminator Operator Device Shelf Model / Identifier Expiration Serial / Date Lot 2.5 X 12 Xience - [id number] Circumflex VALDEZ VASCULAR [id number] / Implanted: Qty: 1 on 10/05/2008 at [facility] [id number] / [id number] 2. Taxus Liberte - [id number] [facility] [id number] / Implanted: Qty: 1 on 05/21/2009 at [facility] / [id number] Promote Plus Icd [id number] - [id number] Left: Chest [facility] ZAY 11/21/2010 [id number] / Implanted: Qty: 1 on 08/19/2009 at [facility] MEDICAL/PACESET [id number] / TER Lead Tendril # [id number] - [id number] Left: Chest [facility] ZAY 05/21/2012 [id number] -[id number] / Implanted: Qty: 1 on 08/19/2009 at [facility] MEDICAL/PACESET [id number] / TER 7121/65 Durata Lead - [id number] Left: Chest [facility] 02/19/2012 7121/65 / Implanted: Qty: 1 on 08/19/2009 at [facility]. [id number] / 1158t Quickflex Lead - [id number] Left: Chest [facility] ZAY 03/21/2012 1158T / Implanted: Qty: 1 on 08/19/2009 at [facility]. [id number] / Biotenodesis Screw 8 X 12mm - [id number] Right: Biceps ARTHREX [id number] / Implanted: Qty: 1 on 02/21/2011 at [facility] / [id number] Quartet 1458q-86cm - [id number] N/A: Chest [facility] 03/21/2018 1458Q-86 / Implanted: Qty: 1 on 07/12/2015 by Jack Chavez MD at [facility]. [id number] / Tyrx Large Absorbable Antibacterial Envelope - [id number] N/A: Chest [employer] 08/21/2015 [id number] / Implanted: Qty: 1 on 07/12/2015 by Jack Chavez MD at [facility] / [id number] Quadra Assura [id number] - [id number] N/A: Chest [facility] 03/21/2017 [id number] / Implanted: Qty: 1 on 07/12/2015 by Jack Chavez MD at [facility]. [id number] / Optisense Lead - [id number] N/A: Chest [facility] 04/20/2018 / Implanted: Qty: 1 on 07/12/2015 by Jack Chavez MD at [facility]. [id number] / documented as of this encounter Results Not on filedocumented in this encounter Visit Diagnoses Diagnosis ASHD (arteriosclerotic heart disease) - Primary Coronary atherosclerosis of unspecified type of vessel, [place] or graft Ischemic cardiomyopathy Other specified forms of chronic ischemic heart disease Chronic systolic heart failure (HCC) Chronic systolic heart failure Dyslipidemia Other and unspecified hyperlipidemia Essential hypertension Unspecified essential hypertension Paroxysmal atrial fibrillation (HCC) Atrial fibrillation documented in this encounter Insurance Payer Benefit Plan / Subscriber ID Effective Dates Phone Address Type Group AETNA [employer]CIAL AETNA [place] xxxxxxxxxx 2012-Present Aetna [facility] MEDICARE MEDICARE PART A xxxxxxxxxxx 2012-Present Medicare & B Guarantor Name Account Type Relation to Date of Phone Billing Address Patient Chris Conte Personal/Family 1960 [address] (Home) [place], [place] [phone] (Work) documented as of this encounter Advance Directives Code Status Date Activated Date Inactivated Comments Full Code 07/08/2019 7:51 PM Does the patient have decision making capacity? Yes Order was discussed with: Patient I discussed all options and patient/surrogate requested and agreed to: Full Code
--- OUTSIDE RECORDS SUMMARY | 2019-08-22 17:16 | XMS REPORT | Continuity of Care Document ---
:1960 External Reference #:[id number] Author Name Sandra Loving Description No Information Available Social History Type Date Description Comments Sex Unknown Allergies, Adverse Reactions, Alerts Description No Information Available Medications Description No Information Available Immunizations Description No Information Available Vital Signs Description No Information Available Results Description No Information Available Procedures Date Code Description Status 07/08/2019 18521 ECHO Transthorasic Realtime 2D W Doppler & Color Flow Hosp Completed Medical Devices Description No Information Available Encounters Type Date Location Provider Dx Diagnosis Office Visit 07/08/2019 [facility] Vincent Rome R07.9 Chest pain, 2:19p Of Kenna Healy M.D. unspecified I21.4 Non-St elevation (Nstemi) myocardial infarction I25.10 Athscl heart disease of [place] coronary artery w/o ang pctrs I42.9 Cardiomyopathy, unspecified Z95.810 Presence of automatic (implantable) cardiac defibrillator Office Visit 07/07/2019 [facility] Flakita Kirby, N17.9 Acute kidney 10:38a Assoc,pc [employer]DER failure, Hospitalists unspecified E87.5 Hyperkalemia R07.9 Chest pain, unspecified Assessments Date Code Description Provider 07/08/2019 R07.9 Chest pain, unspecified Vincent Healy M.D. 07/08/2019 I21.4 Non-St elevation (Nstemi) myocardial Vincent Healy M.D. infarction 07/08/2019 I25.10 Atherosclerotic heart disease of [place] Vincent Healy M.D. coronary artery without angina pectoris 07/08/2019 I42.9 Cardiomyopathy, unspecified Vincent Healy M.D. 07/08/2019 Z95.810 Presence of automatic (implantable) cardiac Vincent Healy M.D. defibrillator 07/07/2019 N17.9 Acute kidney failure, unspecified Flakita Kirby, MELANI 07/07/2019 E87.5 Hyperkalemia Flakita Kirby, MELANI 07/07/2019 R07.9 Chest pain, unspecified Flakita Kirby, MELANI Plan of Treatment No Information Available Functional Status Description No Information Available Mental Status Description No Information Available Referrals Description No Information Available
--- OUTSIDE RECORDS SUMMARY | 2019-08-22 17:17 | XMS REPORT | Summary of Care ---
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 Disease Nurse Educator Unavailable Reason for Referral Refer to Department Only (Routine) Status Reason Specialty Diagnoses / Referred By Referred To Contact Procedures Contact Pending Anticoagulation Diagnoses NSTEMI (non-ST elevated myocardial infarction) (HCC) Marlena Erazo [place] Review ANP-C Anticoagulation [address] [place] [id number] Phone: Scheduling Instructions Previous INR lab results: Lab Results Component Value Date INR 1.09 07/11/2019 INR (POCT) 1.5 07/07/2019 Current Facility-Administered Medications: aspirin (ECOTRIN) enteric coated tablet 81 mg, 81 mg, Oral, DAILY, Camille Quinonez MD, 81 mg at 07/11/19 0827 atorvastatin (LIPITOR) tablet 80 mg, 80 mg, Oral, QHS, Deanna Godoy DO, 80 mg at 07/10/19 220 carvedilol (COREG) tablet 12.5 mg, 12.5 mg, Oral, BID, Arie Mejia MD , 12.5 mg at 07/11/19 0827 clopidogrel (PLAVIX) tablet 75 mg, 75 mg, Oral, DAILY, Misha Perkins MD, 75 mg at 07/11/19 1121 dextrose injection 50 %, 25 g, Intravenous, PRN, Deanna Godoy DO, 25 g at 07/11/19 0105 GLARGINE insulin (LONG-Acting) injection 10 Units, 10 Units, Subcutaneous, QAM, Deanna Godoy DO, 10 Units at 07/11/19 0922 glucose (GLUTOSE) oral gel 40 %, 1-2 Tube, Oral, PRN, Deanna Godoy DO heparin in dextrose 5% IV premix 100 units/mL, 960 Units/hr, Intravenous, Titrate, Giovana Lu MD, Last Rate: 10 mL/hr at 07/11/19 0730, 1,000 Units/hr at 0730 heparin injection 70104 UNIT/ML, 1,000 Units, Intravenous Push, Q6H PRN, Giovana Lu MD HOLD MEDICATION, , Does not apply, Pre Meals, Deanna Godoy DO, Stopped at 07/11/19 1100 LISPRO insulin (RAPID-Acting) SENSITIVE Correction Scale Inj, , Subcutaneous , AC/HS, Deanna Godoy DO, Stopped at 07/11/19 1100 nitroglycerin (NITROSTAT) sublingual tablet (150) 0.4 mg, 0.4 mg, Sublingual, Q5M PRN, Jorge Bailey MD ramipril (ALTACE) capsule 5 mg, 5 mg, Oral, DAILY, Misha Perkins MD, 5 mg at 07/11/19 08 spironolactone (ALDACTONE) tablet (1/2X25mg) 12.5 mg, 12.5 mg, Oral, DAILY, Misha Perkins MD, 12.5 mg at 07/11/19 08 tramadol (ULTRAM) tablet 50 mg, 50 mg, Oral, Q8H PRN, Giovana Lu MD, 50 mg at 07/10/19 2312 warfarin (COUMADIN) tablet 5 mg, 5 mg, Oral, PM X1 1700, Misha Perkins MD [] Teach patient/family about Coumadin, , , One Time AND warfarin patient, , Does not apply, DAILY 1400, Misha Perkins MD, Stopped at 07/09/19 1400 (Routine) Status Reason Specialty Diagnoses / Procedures Referred By Contact Referred To Contact Jorge Bailey MD [address] [place] [address] Scheduling Instructions Reason for Consult: 58M with multivessel disease. Please evaluate for CABG. Patient Background: Chris Bahena is a 58-y.o. male (Routine) Status Reason Specialty Diagnoses / Procedures Referred By Contact Referred To Contact [facility] [address] [place] [address] Phone: [phone] Scheduling Instructions Reason for Consult: CHF education. Patient Background: Chris Bahena is a 58-y.o. male Reason for Visit Reason Comments Auth/Cert Status Reason Specialty Diagnoses / Procedures Referred By Contact Referred To Contact Encounter Details Date Type Department Care Team Description 07/08/2019 - Hospital Encounter [address] MD [address] [place] [address] [phone] Inpatient 07/11/2019 1 Derrick Acharya MD [address] [place] [address] [place] [address] Ashkan Callaway DO [address] [place] [address] [phone] Allergies Active Allergy Reactions Severity Noted Date Comments Penicillins Hives 05/25/2004 Shell Fish Anaphylaxis 05/25/2004 Tape: Silk Or Adhesive Dermatologic Reaction 07/09/2015 Paper tape documented as of this encounter (statuses as of 07/12/2019) Medications Medication Sig Dispensed Refills Start End Date Status Date Pen [place] 31G X 1 Package by 1 Each [...] NEEDED (pain). Max Daily Amount: 300 mg. Insulin Glargine Inject 15 Units 15 mL [...] mouth TWICE 9 TabIndications: DAILY. Benign hypertension rivaroxaban Take 1 Tab by 30 Tab 11 Active (XARELTO) 20 MG mouth DAILY. 9 Oral Tab Xarelto for atrial fibrillation.Con tinue Plavix for coronary artery disease with stents. atorvastatin Take 1 Tab by 30 Tab 11 Active (LIPITOR) 80 MG mouth DAILY. 9 Oral Tab Dose is increased from 40 mg daily to 80 mg daily rivaroxaban Take 1 Tab by 30 Tab 0 Active (XARELTO) 20 MG mouth DAILY. 9 Oral Tab atorvastatin Take 1 Tab by 90 Tab 5 07/11/20 Discontinued (LIPITOR) 40 MG mouth DAILY. 9 19 (Reorder) Oral Tab warfarin Take 0.5-1 Tabs 90 Tab 3 07/11/20 Discontinued (COUMADIN) 5 MG by mouth DAILY. 9 19 (Alternative Oral As directed Therapy) TabIndications: which is 5mg Mon Left ventricular and Fri. 2.5mg thrombosis remaining days of week ticagrelor Take 1 Tab by 60 Tab 11 07/11/20 Discontinued (BRILINTA) 90 MG mouth TWICE 9 19 Oral Tab DAILY. Please dont fill yet - just checking for coverage rivaroxaban Take 1 Tab by 30 Tab 11 07/11/20 Discontinued (XARELTO) 20 MG mouth DAILY. 9 19 (Reorder) Oral Tab Please don't fill yet - just checking for coverage documented as of this encounter (statuses as of 07/12/2019) Active Problems Problem Noted Date NSTEMI (non-ST elevated myocardial infarction) 07/09/2019 Overview: Presented to OSH after episode of chest pain. Troponin barrie to peak of 7 which prompted transfer to [facility]. EKG with no ischemic changes. No current [...] Aldactone later this admission. -Coreg 12.5 BID Left ventricular thrombosis 04/11/2019 ST elevation myocardial infarction (STEMI) 04/11/2019 Atrial fibrillation, chronic 04/11/2019 Overview: In history. Has biventricular pacemaker. On warfarin also for chronic LV thrombus. 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 On warfarin at home, INR subtherapeutic at 1.25 on admission. Peripheral vascular disease, unspecified 05/17/2012 Overview: On ASA and Plavix and Lipitor at home, following with Vascular Atherosclerosis of leg with intermittent claudication 04/29/2012 [facility] current use of anticoagulant therapy 02/09/2010 Overview: Managed by [facility] Referring Provider: Arabella Indication: Afib Target Range: 2.0-3.0 Duration: Indefinite Additional factors influencing anticoagulation: CHADS2 score of 3 for LV dysfunction, diabetes, hypertension [id number] score of 4 for LV dysfunction, diabetes, hypertension, vascular disease Clopidogrel significantly increases bleeding risk Spironolactone decreases warfarin effect Updated Referral: 04/2018, 05/28/19 Updated ACS Orders: 04/29/18, 06/09/19 Tubular adenoma 02/08/2010 Overview: Colonoscopy/polypectomy 01/29 Dr Adames Cardiomyopathy, ischemic 11/01/2009 Overview: Known Congestive heart failure 08/26/2009 Overview: Left ventricular ejection fraction 20-25% Ischemic cardiomyopathy S/p biventricular pacemaker and ICD placement Dr Chavez [facility] 07/30 S/P ICD (internal cardiac defibrillator) procedure 08/26/2009 Overview: 08/19/09: Biventricular pacemaker placement [facility] DEFIBRILLATOR GENERATOR IMPLANTED: Promote Plus, model KE0097, serial number [id number]. RIGHT ATRIAL LEAD: Model 1888, serial number [id number]. LEFT VENTRICULAR LEAD: Model 1158T, serial number [id number]. RIGHT VENTRICULAR LEAD/COIL: Model 7121, serial number [id number]. 02/29/12: [facility] Report There have been [...] as of this encounter (statuses as of 07/12/2019) Resolved Problems Problem Noted Date Resolved Date [...] as of this encounter (statuses as of 07/12/2019) Immunizations Name Administration Dates Next Due Influenza [...] Sign Reading Time Taken Comments Blood Pressure 142/66 07/11/2019 4:00 PM EDT Pulse 78 07/11/2019 4:00 PM EDT Temperature 36.8 07/11/2019 4:00 PM EDT C (98.3 F) Respiratory Rate 18 07/11/2019 4:00 PM EDT Oxygen Saturation 98% 07/11/2019 4:00 PM EDT Inhaled Oxygen Concentration - - Weight 87.6 kg (193 lb 3 oz) 07/11/2019 5:30 AM EDT Height 170.2 cm (5' 7") 07/08/2019 7:15 PM EDT Body Mass Index 30.26 07/08/2019 7:15 PM EDT documented in this encounter Discharge Summaries Marlena Erazo ANP-C - 07/11/2019 3:00 PM EDT [facility] [place]. [id number] Discharge Summary Patient ID: Chris Bahena [id number] 58-y.o. 1960 Admission date: 07/08/2019 Discharge date: 07/11/2019 Admitting Physician: Ashkan Callaway DO Principal Diagnosis: NSTEMI Procedures: Left heart catheterization Other medical problems managed in the hospital: Coronary artery disease (remote PCI's) Chronic systolic heart failure/LVEF 25 to 30% Paroxysmal atrial fibrillation Hypertension Peripheral arterial disease Calcified apical thrombus AICD/PPM Tobacco dependence Discharged Condition: stable Hospital Course: Mr. Bahena is a 58 year old [facility]. He has history of coronary artery disease with remote PCI's. He ruledin for GA. He was transferred to [facility] for evaluation. Please refer to the history and physical for full details. NSTEMI: He had a peak Troponin of 4.580. Echocardiogram from [place] showed LVEF of 25 to 30% (previously 40 to 45%). Left heart catheterization showed moderate left main disease and severe disease in the LAD and circumflex. He was seen by CT surgery who felt he was not a good candidate for CABG. Filmswere then reviewed for consideration of PCI, but felt in the end that he would most likely not benefit from PCI. He is very stable clinically and therefore recommended for medical management for now. His home dose of Lipitor has been increased from 40 mg daily to 80 mg daily. He should have LipoA/LipoB checked as an outpatient and then considered for a PCSK-9 inhibitor. Ischemic cardiomyopathy: LVEF is 25 to 30%. Previously 40 to 45%. He is well compensated. He is on abeta merari and an ACEI. He will continue his home dose of Aldactone 25 mg qd. Paroxysmal atrial fibrillation: He is currently in sinus rhythm. He was anticoagulated with Coumadindue to atrial fibrillation and apical thrombus ( which is now calcified). Will discontinue Coumadin in favor of Xarelto. He will continue Plavix. He was instructed not to take aspirin. Tobacco dependence: Smoking cessation was discussed and he states understanding of need to quit. He expresses desire to quit. He denied need for assistance at this time as he is not currently having cravings. Hypertension: Blood pressure is well controlled. He will continue his usual home medications. Diabetes: Glycohemoglobin A1C is 6.6. He will continue his usual home medications. Consults: CONSULT TO PEDIATRIC ACUTE CARE UNIT NURSE/CASE MANAGEMENT CONSULT TO DIETARY CONSULT TO CARDIO/THORACIC SURGERY CONSULT TO CASE MANAGEMENT PER PROTOCOL Studies: CXR: Comparison studies: 07/13/2015. Observations: The lungs are adequately aerated. There is no pneumothorax. No significant effusion. No airspace consolidation. Unchanged multilead cardiac device. The cardiac silhouette appears normal. No definite vascular congestion. No acute osseous abnormality is evident. IMPRESSION No acute findings. Carotid US: IMPRESSION IMPRESSIONS: Hx: Pre op Duplex imaging of the bilateral carotid arteries indicates 0-49% stenosis with minimal plaque seen in the bulb and proximal internal carotid arteries bilaterally. RT ICA:98/39cm/s LT ICA:63/13cm/s The bilateral vertebral arteries demonstrate antegrade flow. Labs: WBC Count Date Value Ref Range Status 07/11/2019 7.45 4.23 - 9.07 K/uL Final Comment: Methodology was changed 10/24/2018. Please note updated reference range and units. Hemoglobin Date Value Ref Range Status 07/11/2019 11.4 (L) 13.7 - 17.5 g/dL Final Hematocrit Date Value Ref Range Status 07/11/2019 33.7 (L) 40.1 - 51.0 % Final Platelet Count Date Value Ref Range Status 07/11/2019 139 (L) 163 - 337 K/uL Final , Sodium Date Value Ref Range Status 07/11/2019 136 134 - 145 mmol/L Final Potassium Date Value Ref Range Status 07/11/2019 4.0 3.5 - 5.1 mmol/L Final Chloride Date Value Ref Range Status 07/11/2019 106 98 - 107 mmol/L Final CO2 Date Value Ref Range Status 07/11/2019 25 22 - 30 mmol/L Final Glucose Date Value Ref Range Status 07/11/2019 180 (H) 70 - 99 mg/dl Final BUN Date Value Ref Range Status 07/11/2019 24 (H) 9 - 20 mg/dl Final Creatinine Date Value Ref Range Status 07/11/2019 1.0 0.8 - 1.5 mg/dl Final Calcium Date Value Ref Range Status 07/11/2019 8.6 8.3 - 10.1 mg/dl Final , PTT Date Value Ref Range Status 07/11/2019 65.4 (H) 22.8 - 34.7 SEC Final , INR Date Value Ref Range Status 07/11/2019 1.09 0.79 - 1.15 Ratio Final Comment: INR Therapeutic Range: 2.0 - 3.5 No results found for: TROPONIN Cholesterol Date Value Ref Range Status 07/10/2019 98 <200 mg/dl Final Triglycerides Date Value Ref Range Status 07/10/2019 92 <150 mg/dl Final HDL Cholesterol Date Value Ref Range Status 07/10/2019 34 (L) >40 mg/dl Final LDL Cholesterol Date Value Ref Range Status 07/10/2019 46 <100 MG/DL Final LDL / HDL Ratio Date Value Ref Range Status 07/10/2019 1.3 Final Cholesterol / HDL Ratio Date Value Ref Range Status 07/10/2019 2.9 RATIO Final No results found for: BNP Physical Exam: Blood pressure 116/58, pulse 81, temperature 97.8 F (36.6 C), temperature source Temporal, resp. rate 18, height 5' 7" (1.702 m), weight 193 lb 3 oz (87.6 kg), SpO2 99 %. Heart: S1S2, RRR Lungs: clear Ext: no edema Medications: Current Discharge Medication List START taking these medications rivaroxaban 20 MG Tabs Commonly known as: XARELTO Dose: 20 mg Quantity: 30 Tab Refills: 11 Take 1 Tab by mouth DAILY. Xarelto for atrial fibrillation.Continue Plavix for coronary artery disease with stents. CONTINUE these medications which have changed atorvastatin 80 MG Tabs Commonly known as: LIPITOR Dose: 80 mg What changed: medication strength how much to take additional instructions Quantity: 30 Tab Refills: 11 Take 1 Tab by mouth DAILY. Dose is increased from 40 mg daily to 80 mg daily CONTINUE these medications which have NOT CHANGED Blood Glucose Monitor Software Ines Dose: 1 Each Quantity: 1 Device Refills: 0 1 Each by Does not apply route DIRECTED. uncontrolled insulin dependent diabetes. Brand: insurance preferred Dx: E11.9 BLOOD GLUCOSE TEST STRIPS STRP Quantity: 100 Strip Refills: 5 1. Brand: per meter type 2. Dx:Diabetes 3. Insulin dependent 4. Test Blood Glucose 3 time(s) A DAY carvedilol 12.5 MG Tabs Commonly known as: COREG Dose: 12.5 mg Quantity: 60 Tab Refills: 0 Take 1 Tab by mouth TWICE DAILY. clopidogrel 75 MG Tabs Commonly known as: PLAVIX Dose: 75 mg Quantity: 90 Tab Refills: 3 Take 1 Tab by mouth DAILY. Glucose Blood Strp Dose: 100 Strip Quantity: 100 Strip Refills: 5 100 Strips by In Vitro route THREE TIMES DAILY. uncontrolled insulin dependent diabetes Dx E11.9 Lancets Misc Quantity: 100 Each Refills: 5 by Does not apply route. Brand:insurance prefferred Dx: E11.9 Insulin dependent Test Blood Glucose 3 time(s) A DAY LANTUS SOLOSTAR 100 UNIT/ML Sopn Generic drug: Insulin Glargine Dose: 15 Units Quantity: 15 mL Refills: 3 Inject 15 Units beneath the skin DAILY. loperamide 2 MG Caps Commonly known as: IMODIUM Quantity: 120 Cap Refills: 3 TAKE 2 CAPSULES BY MOUTH EVERY MORNING AND EVENING nitroglycerin 0.4 MG Subl Commonly known as: NITROSTAT Dose: 0.4 mg Quantity: 1 Bottle Refills: 3 Place 1 Tab under tongue EVERY FIVE MINUTES NEEDED for chest pain. Pen [place] 31G X 8 MM Misc Dose: 1 Package Quantity: 1 Each Refills: 5 1 Package by Does not apply route TWO TIMES DAILY BEFORE MEALS. humalog pen needles ramipril 5 MG Caps Commonly known as: ALTACE Dose: 5 mg Quantity: 90 Cap Refills: 3 Take 1 Cap by mouth DAILY. spironolactone 25 MG Tabs Commonly known as: ALDACTONE Dose: 12.5 mg Quantity: 45 Tab Refills: 3 Take 0.5 Tabs by mouth DAILY. tramadol 50 MG Tabs Commonly known as: ULTRAM Dose: 50-100 mg Quantity: 120 Tab Refills: 5 Take 1-2 Tabs by mouth EVERY EIGHT HOURS NEEDED (pain). Max Daily Amount: 300 mg. TYLENOL 8 HOUR PO Dose: 500 mg Refills: 0 Take 500 mg by mouth NEEDED. Stop taking these previous medications warfarin 5 MG Tabs Commonly known as: COUMADIN Where to Get Your Medications These medications were sent to [place] [id number] [place] [address] Hours: M-Sat: 9am-7pm atorvastatin 80 MG Tabs rivaroxaban 20 MG Tabs Patient Instructions: Activity: activity as tolerated Wound Care: Keep wound clean and dry and Observe for redness, swelling or drainage Follow-Up: Follow up with Dr Yuan in one week Keep appointment with Joie Elliott NP on 07/30/19 as previously scheduled. Diet: Diabetic Diet Total time spent on discharge (including medication reconciliation and patient education) was 45 minutes. Patient was seen by Dr. Derrick Cerna. He is in agreement with the plan. Provider Signature: LIUDMILA Yoon Associated attestation - Derrick Cerna MD - 07/11/2019 11:[facility] Supervising MD Documentation Date of Service: 07/11/19 B# [id number] I saw and evaluated the patient. Discussed with resident and agree with the resident's findings andplan as documented in the resident's note. Additional Comments: Ct surgery evaluation deemed patient not a good surgical candidate. Case discussed with Dr. Bloom. Patient is currently asymptomatic. Can be discharged today. However on my evaluation I believe thepatient has possible familial hypercholesterolemia given his history of GA at age 28 and family history of his brother with GA at age 33. That should lipid clinic score 4 (possible FH) this makes him eligible for PCSK9 inhibitors. This was discussed with Dr. Bloom and can be started as an outpatient. Also I personally reviewed TTE images. There is a possibility of a calcified LV thrombus. However given the calcification it is less likely to embolize. And I believe the warfarin can be replaced with Xarelto. This change was done after discussing with Dr. Bloom as per patient's wishes. A second surgical opinion can also be considered in future if patient presents with recurrent ASCVD event or ischemic symptoms. Derrick Cerna MD Supervising Physiciandocumented in this encounter Discharge Instructions Deanna Lipscomb RN - 07/11/2019Provider's Instructions Reason for Admission or Diagnosis: NSTEMI (Non ST elevated GA - "heart attack") Activity/Restrictions: activity as tolerated Skin/Wound Care: Keep wound clean and dry and Observe for redness, swelling or drainage Discharge Diet: Cardiac Diet Special Instructions: Follow up with Dr Yuan in one week Follow up with Joie Elliott NP on 07/30/19 as previously scheduled NEW MEDICATIONS: Xarelto (Rivaroxaban) 20 mg once a day MEDICATION CHANGES: Lipitor (Atorvastatin) has been increased from 40 mg qd to 80 mg qd. STOP TAKING: Coumadin (Warfarin) - you will be taking the Xarelto in its place. Aspirin If you have any questions please feel free to contact me at [phone] ( Sunday - Sunday). Please leave me a message and I will call you back by the end of the day. If you need assistance after 5 pm or on the weekend please call [phone] and ask for the real estate economist cardiology provider. Marlena ALCALAC Discharge Provider: LIUDMILA Yoon Attending: Derrick Cerna MD Time: 14:06 {Provider's stop here} Nurse's Instructions Problems to report to your Physician: Excessive pain or discomfort Fever > 100.5 degrees Difficulty breathing Increase or smell in wound drainage Skin/Wound Care: Skin intact on discharge Medical Equipment/Supplies to help you at home: {MEDICAL SUPPLIES:08286} Patient's medications returned: {N/A:70307} Help arranged for you *Please Return Patient Satisfaction Survey* documented in this encounter Progress Notes Deanna Godoy, - 07/11/2019 1:40 PM EDT Assessments & Plans: Chris Bahena is a 58-y.o. male who was seen today for the following problems: Hospital Problems Hospital * (Principal) NSTEMI (non-ST elevated myocardial infarction) (HCC) Overview Presented to OSH after episode of chest pain. Troponin barrie to peak of 7 which prompted transfer to [facility]. EKG with no ischemic changes. No current chest pain. Heparin drip continued and cardiac cath today which showed LM, LAD and LCX disease. CT surgery consulted who believe that he is not a candidate for CABG. Awaiting decision if patient could potentially have PCI. Possible discharge on medical therapy if not PCI candidate. - ASA, Lipitor 80, Coreg 12.5mg bid Tobacco use disorder Overview Known Type 2 diabetes mellitus without complication, with long-term current use of insulin (HCC) Overview Has been uncontrolled. Recheck A1c,10units Lantus basal + ISS Coronary artery disease Overview PCI to LAD, Cx. Most recently RCA stents x3 in 2008. On ASA and Plavix Mixed hyperlipidemia Overview Lipitor 80mg Essential hypertension, benign Overview Controlled this admission. On Ramipril at home which has been held for cath. Continue Coreg 12.5 BID Cardiomyopathy, ischemic Overview Known Peripheral vascular disease, unspecified (HCC) Overview On ASA and Plavix and Lipitor at home, following with Vascular Left ventricular thrombus Overview Chronic since 2014. On warfarin at home, INR subtherapeutic at 1.25 on admission. Atrial fibrillation, chronic (HCC) Overview In history. Has biventricular pacemaker. On warfarin also for chronic LV thrombus. Chronic systolic heart failure (HCC) Overview Secondary to ischemic cardiomyopathy. Has AICD and [...] Aldactone later this admission. -Coreg 12.5 BID Subjective: HPI Patient sitting on on bed today, preparing for breakfast. Reports that his blood sugar went low lastnight and that he had to be given sugar. He is otherwise feeling well. No chest pain or shortness ofbreath. Objective: Temp: [97.7 F (36.5 C)-98.3 F (36.8 C)] 97.8 F (36.6 C) Pulse: [80-83] 81 Resp: [16-18] 18 BP: (95-116)/(52-58) 116/58 I/O last 3 completed shifts: In: 450 [P.O.:450] Out: - I/O this shift: In: 360 [P.O.:360] Out: - Physical Exam Constitutional: He is oriented to person, place, and time. He appears well- developed and well-nourished. No distress. HENT: Head: Normocephalic and atraumatic. Mouth/Throat: Oropharynx is clear and moist. Eyes: Conjunctivae are normal. No scleral icterus. Neck: Normal range of motion. Cardiovascular: Normal rate, regular rhythm, S1 normal and S2 normal. Exam reveals no gallop and no friction rub. No murmur heard. Pulmonary/Chest: Effort normal and breath sounds normal. No respiratory distress. He has no wheezes.He has no rales. Abdominal: Soft. He exhibits no distension. There is no tenderness. There is no rebound and no guarding. Musculoskeletal: He exhibits no edema. Neurological: He is alert and oriented to person, place, and time. Gait normal. GCS eye subscore is 4. GCS verbal subscore is 5. GCS motor subscore is 6. Skin: Skin is warm and dry. He is not diaphoretic. No pallor. Psychiatric: He has a normal mood and affect. His speech is normal and behavior is normal. Thought content normal. Nursing note and vitals reviewed. Labs: Recent Results (from the past 23 hour(s)) GLUCOSE (POCT) Collection Time: 07/10/19 10:00 PM Result Value Ref Range Glucose POCT Result 324 (H) 70 - 99 mg/dl GLUCOSE (POCT) Collection Time: 07/11/19 12:50 AM Result Value Ref Range Glucose POCT Result 47 (LL) 70 - 99 mg/dl CBC NO DIFFERENTIAL Collection Time: 07/11/19 12:51 AM Result Value Ref Range WBC Count 10.33 (H) 4.23 - 9.07 K/uL RBC Count 3.69 (L) 4.30 - 5.89 M/UL Hemoglobin 12.2 (L) 13.7 - 17.5 g/dL Hematocrit 36.6 (L) 40.1 - 51.0 % MCV 99.2 (H) 79.0 - 92.2 FL MCH 33.1 (H) 25.7 - 32.2 PG MCHC 33.3 32.3 - 36.5 g/dL Platelet Count 168 163 - 337 K/uL MPV 9.3 (L) 9.4 - 12.4 FL RDW 13.2 11.6 - 14.4 % PARTIAL THROMBOPLASTIN TIME Collection Time: 07/11/19 12:51 AM Result Value Ref Range PTT 49.5 (H) 22.8 - 34.7 SEC GLUCOSE, BLOOD Collection Time: 07/11/19 12:55 AM Result Value Ref Range Glucose 36 (LL) 70 - 99 mg/dl GLUCOSE (POCT) Collection Time: 07/11/19 1:16 AM Result Value Ref Range Glucose POCT Result 215 (H) 70 - 99 mg/dl PARTIAL THROMBOPLASTIN TIME Collection Time: 07/11/19 6:39 AM Result Value Ref Range PTT 65.4 (H) 22.8 - 34.7 SEC PROTHROMBIN TIME Collection Time: 07/11/19 6:39 AM Result Value Ref Range INR 1.09 0.79 - 1.15 Ratio Protime 13.8 11.4 - 14.3 sec CBC NO DIFFERENTIAL Collection Time: 07/11/19 6:39 AM Result Value Ref Range WBC Count 7.45 4.23 - 9.07 K/uL RBC Count 3.44 (L) 4.30 - 5.89 M/UL Hemoglobin 11.4 (L) 13.7 - 17.5 g/dL Hematocrit 33.7 (L) 40.1 - 51.0 % MCV 98.0 (H) 79.0 - 92.2 FL MCH 33.1 (H) 25.7 - 32.2 PG MCHC 33.8 32.3 - 36.5 g/dL Platelet Count 139 (L) 163 - 337 K/uL MPV 9.4 9.4 - 12.4 FL RDW 12.8 11.6 - 14.4 % BASIC METABOLIC PANEL Collection Time: 07/11/19 6:39 AM Result Value Ref Range Glucose 180 (H) 70 - 99 mg/dl BUN 24 (H) 9 - 20 mg/dl Creatinine 1.0 0.8 - 1.5 mg/dl Sodium 136 134 - 145 mmol/L Potassium 4.0 3.5 - 5.1 mmol/L Chloride 106 98 - 107 mmol/L CO2 25 22 - 30 mmol/L Calcium 8.6 8.3 - 10.1 mg/dl eGFR >60 See Interpretation Below ml/min/1.73ml Sq BUN/Creatinine Ratio 24 (H) 6 - 22 RATIO Anion Gap 5 3 - 11 mmol/L MAGNESIUM LEVEL Collection Time: 07/11/19 6:39 AM Result Value Ref Range Magnesium 1.8 1.6 - 2.3 MG/DL GLUCOSE (POCT) Collection Time: 07/11/19 7:48 AM Result Value Ref Range Glucose POCT Result 158 (H) 70 - 99 mg/dl GLUCOSE (POCT) Collection Time: 07/11/19 8:22 AM Result Value Ref Range Glucose POCT Result 163 (H) 70 - 99 mg/dl GLUCOSE (POCT) Collection Time: 07/11/19 12:15 PM Result Value Ref Range Glucose POCT Result 136 (H) 70 - 99 mg/dl Studies: Xr Chest 2 View Pa And Lateral (standard) Result Date: 07/09/2019 Procedure(s): XR CHEST 2 VIEW PA AND LATERAL (STANDARD) Date of service: 2018 1:20 PM Provided clinical information: 58 years, Male, "congestive heart failure" Procedure and materials: Standard protocol. Comparison studies: 2014. Observations: The lungs are adequately aerated. There is no pneumothorax. No significant effusion. No airspace consolidation. Unchanged multilead cardiac device. The cardiac silhouette appears normal. No definite vascular congestion. No acute osseous abnormality is evident. No acute findings. Urgency: Routine. This is a routine medical imaging report. Recommendation: No specific imaging recommendation. Signed by Zelalem Perez MD on 07/09/2019 1:35 PM Vl Neck Carotid Bilateral Result Date: 07/09/2019 NAME: Josef Powell BN: [id number] VASCULAR LAB [facility] STUDY DATE: 07/09/19 [facility] [place] [id number] : 58 AP: Dr Buster Doherty MD, RVT, FACS REFERRING PROVIDER: Triny Boggs EXAMINATION: Extracranial INDICATION: Vertigo/Dizziness - 780.4 TECHNOLOGIST: Olu Parson IMPRESSIONS: Hx: Pre op Duplex imaging of the bilateral carotid arteries indicates 0-49% stenosis with minimal plaque seen in the bulb and proximal internal carotid arteries bilaterally. RT ICA:98/39cm/s LT ICA:63/13cm/s The bilateral vertebral arteries demonstrate antegrade flow. Cardiac Catheterization Result Date: 07/11/2019 Severe left anterior descending and LCx disease. Moderate left main disease. Diet: Diet Type: Regular DVTp: heparin Code Status: Full Code For ease of review, Assessments & Plans have been moved to the top of the note. Patient was seen and discussed with Dr. Cerna, who agrees with the assessment and plan. Author: Deanna Godoy DO Emergency Medicine, PGY-1 07/11/2019 14:29 Associated attestation - Derrick Cerna MD - 07/11/2019 11:21 PM [facility] Supervising MD Documentation Date of Service: 07/11/19 B# [id number] I saw and evaluated the patient. Discussed with resident and agree with the resident's findings andplan as documented in the resident's note. Derrick Cerna MD Supervising PhysicianGiovana Lu MD - 07/11/2019 1:39 AM EDTShort progress note: I was paged by the nurse saying patient's glucose POCT was 47 at 0050, and the lab confirmed that the glucose was 36, he was given D50 and repeat blood glucose was 215. Will monitor for now. Giovana Lu MD Misha Dumont MD - 07/10/2019 8:09 AM EDT [facility] Johnnie Herrera. [id number] Cardiology Progress Note Date of Service: 07/10/2019 Patient: Chris Gonzalez #: [id number] Attending: JOSE KABA MD , Subjective: Doing well this morning, was being taken for pulmonary function test. No issues overnightcooperative Objective: Blood pressure 127/62, pulse 83, temperature 98.7 F (37.1 C) , temperature source Temporal, resp. rate 16, height 5' 7" (1.702 m), weight 176 lb 3 oz (79.9 kg), SpO2 95 %. I/O: Intake/Output Summary (Last 24 hours) at 07/10/2019 0809 Last data filed at 07/10/2019 0750 Gross per 24 hour Intake 120 ml Output Net 120 ml General: cooperative Neck: No JVD Lungs: CTA Heart: RRR Abd: soft, nontender, nondistended Ext: no edema Skin: Skin color, texture, turgor normal. No rashes or lesions. Data: WBC Count Date Value Ref Range Status 07/10/2019 7.46 4.23 - 9.07 K/uL Final Comment: Methodology was changed 10/24/2018. Please note updated reference range and units. 07/09/2019 9.05 4.23 - 9.07 K/uL Final Hemoglobin Date Value Ref Range Status 07/10/2019 11.8 (L) 13.7 - 17.5 g/dL Final Hematocrit Date Value Ref Range Status 07/10/2019 35.5 (L) 40.1 - 51.0 % Final Platelet Count Date Value Ref Range Status 07/10/2019 144 (L) 163 - 337 K/uL Final NT PRO BNP Date Value Ref Range Status 07/08/2019 6,200 (H) <125 pg/ml Final Comment: Recommended cut points for the diagnostic evaluation of heart failure patients with acute dyspnea* Ages (years) Optimal [place] (pg/ml) <50 450 50-75 900 >75 1800 *The [place] Journal of Cardiology NTproBNP results should be interpreted in the context of the overall picture. Serum concentrations of natriuretic peptides may be elevated in patients with acute myocardial infarction and renal insufficiency. Certain drugs may alter results. Heterophilic antibodies are known to cause interference withimmunoassays. Results which are inconsistent with clinical observation indicate a need for additional testing. NTproBNP testing performed on [employer]. Results will not correlate with other methodologies. INR Date Value Ref Range Status 07/10/2019 1.16 (H) 0.79 - 1.15 Ratio Final Comment: INR Therapeutic Range: 2.0 - 3.5 Troponin Date Value Ref Range Status 07/09/2019 3.820 (HH) 0.000 - 0.034 ng/ml Final Comment: Negative less than or equal to 0.034 ng/ml Indeterminate 0.0351 - 0.119 ng/ml (Suggest Repeat in 4 Hours) Critical (AMI Cutoff) greater than or equal to 0.120 ng/ml Cholesterol Date Value Ref Range Status 07/10/2019 98 <200 mg/dl Final Triglycerides Date Value Ref Range Status 07/10/2019 92 <150 mg/dl Final HDL Cholesterol Date Value Ref Range Status 07/10/2019 34 (L) >40 mg/dl Final LDL Cholesterol Date Value Ref Range Status 07/10/2019 46 <100 MG/DL Final LDL / HDL Ratio Date Value Ref Range Status 07/10/2019 1.3 Final Cholesterol / HDL Ratio Date Value Ref Range Status 07/10/2019 2.9 RATIO Final Tests: EKG: Ventricular paced CXR: No significant pleural effusions Echo: 40 to 45% with multiple regional wall motion abnormalities with a history of calcified thrombus Stress Test: NA Assessment/Plan: Principal Problem: NSTEMI (non-ST elevated myocardial infarction) ([facility]) Active Problems: Tobacco use disorder Type 2 diabetes mellitus without complication, with long-term current use of insulin (HCC) Coronary artery disease Mixed hyperlipidemia Essential hypertension, benign Cardiomyopathy, ischemic Peripheral vascular disease, unspecified (HCC) Left ventricular thrombus Atrial fibrillation, chronic (HCC) Chronic systolic heart failure (HCC) NSTEMI Patient with multiple risk factors such as previous CAD, active smoker, hypertension EKG with no ischemic changes, ventricular paced Troponin down trended Cardiac catheterization performed during this admission showing multivessel disease Awaiting CT surgery consult Obtain PFT and Doppler of the neck Continue aspirin, Lipitor, heparin and Coreg Chronic heart failure with preserved ejection fraction Not acutely decompensated Ejection fraction 40 to 45% History of calcified thrombus Continue Coreg, Aldactone, ramipril Active smoker Counseled on smoking cessation Type 2 diabetes Continue sliding-scale CAD History of PCI to the LAD and RCA HLD Continue Lipitor HTN Currently on Coreg Plan to resume Aldactone 12.5 and ramipril 5 today Disposition: Await CT surgery consult, continue pre-CABG work-up. Author: Misha Perkins MDElectronically signed by Jose Kaba MD at 07/10 3:35 PM EDT Associated attestation - Jose Kaba MD - 07/10/2019 3:35 PM [facility] Supervising MD Documentation Patient: Chris Bahena Date of Service: 07/10/2019 All relevant medical records were discussed and reviewed along with the cardiovascular fellow and resident team. I personally corroborated the history and examined the patient myself. I had a long discussion today with both Dr. Sparks and Dr. Bailey and I personally reviewed his echo images from [facility] as well as his cath images. Dr. Sparks does not feel that a GILLETTE to LAD would be worth doing b/c his distal LAD has suboptimal targets and significant stenosis distal to where the anastomosis would be. TTE shows LAD territory wall motion abnormality, and I suspect there's a significant amount of scar there. We are still waiting for the official recommendation from CTS, but if we can't get the mortality benefit afforded by a GILLETTE-->LAD, then CABG may not be the best option. While Dr. Bailey feels that long segment stenting from the LM down the entire LAD and also in the Cx would be anatomically possible, the durability of that approach would likely be poor. As such, assuming CTS does not recommend pursuing CABG then I think we'll try aggressive medical therapy and lifestyle changes ( including smoking cessation) and then consider pursuing PCI if pt has ongoing symptoms despite OMT. Plan was discussed with the medical team and I agree with the recommendations below. Plan was discussed with the patient and all concerns/questions were addressed. Jose Kaba MD, [facility] Supervising Physician Misha Perkins MD - 07/09/2019 2:19 PM EDT Assessments & Plans: Chris Bahena is a 58-y.o. male who was seen today for the following problems: Hospital Problems Hospital * (Principal) NSTEMI (non-ST elevated myocardial infarction) (HCC) Overview Presented to OSH after episode of chest pain. Troponin barrie to peak of 7 which prompted transfer to [facility]. EKG with no ischemic changes. No current chest pain. Coronary catheterization performed today, triple-vessel disease Continue heparin drip, cardio thoracic surgery consulted for possible CABG Continue aspirin, Lipitor, heparin drip, Coreg 12.5 Tobacco use disorder Overview Known Counseled on smoking cessation Type 2 diabetes mellitus without complication, with long-term current use of insulin (HCC) Overview Has been uncontrolled. Recheck A1c,15units Lantus basal + ISS Coronary artery disease Overview PCI to LAD, Cx. Most recently RCA stents x3 in 2008. Mixed hyperlipidemia Overview Continue Lipitor 80mg Essential hypertension, benign Overview Controlled this admission. On Ramipril at home which has been held for cath as it will be contrast given. Continue Coreg 12.5 BID Cardiomyopathy, ischemic Overview Known Peripheral vascular disease, unspecified (HCC) Overview On ASA and Plavix and Lipitor at home, following with Vascular Left ventricular thrombus Overview Chronic since 2014. On warfarin at home, INR subtherapeutic at 1.25 on admission. Is currently on heparin drip -Continue heparin Atrial fibrillation, chronic (HCC) Overview In history. Has biventricular pacemaker. On warfarin also for chronic LV thrombus. Chronic systolic heart failure (HCC) Overview Secondary to ischemic cardiomyopathy. Has AICD and [...] Aldactone later this admission. -Coreg 12.5 BID Subjective: HPI Patient resting in bed this morning. HPI reviewed with patient stating that he had a 1.5 hour episode of chest pain 2 days ago which prompted ED evaluation at OSH. He was transferred to [facility] after troponin trended to 7. Patient is presently comfortable with no chest pain or shortness of breath. No swelling in legs. Anticipating cath today. Objective: Temp: [97.1 F (36.2 C)-97.9 F (36.6 C)] 97.1 F (36.2 C) Pulse: [75-87] 75 Resp: [16-20] 16 BP: (97-136)/(51-74) 123/67 No intake/output data recorded. No intake/output data recorded. Physical Exam Constitutional: He is oriented to person, place, and time. He appears well- developed and well-nourished. No distress. HENT: Head: Normocephalic and atraumatic. Mouth/Throat: Oropharynx is clear and moist. Eyes: Conjunctivae are normal. No scleral icterus. Neck: Normal range of motion. Cardiovascular: Normal rate, regular rhythm, S1 normal and S2 normal. Exam reveals no gallop and no friction rub. No murmur heard. Pulmonary/Chest: Effort normal and breath sounds normal. No respiratory distress. He has no wheezes.He has no rales. Abdominal: Soft. He exhibits no distension. There is no tenderness. There is no rebound and no guarding. Musculoskeletal: He exhibits no edema. Neurological: He is alert and oriented to person, place, and time. Gait normal. GCS eye subscore is 4. GCS verbal subscore is 5. GCS motor subscore is 6. Skin: Skin is warm and dry. He is not diaphoretic. No pallor. Psychiatric: He has a normal mood and affect. His speech is normal and behavior is normal. Thought content normal. Nursing note and vitals reviewed. Labs: Recent Results (from the past 23 hour(s)) CBC WITH DIFFERENTIAL Collection Time: 07/08/19 7:29 PM Result Value Ref Range WBC Count 10.60 (H) 4.23 - 9.07 K/uL RBC Count 3.77 (L) 4.30 - 5.89 M/UL Hemoglobin 12.5 (L) 13.7 - 17.5 g/dL Hematocrit 37.2 (L) 40.1 - 51.0 % MCV 98.7 (H) 79.0 - 92.2 FL MCH 33.2 (H) 25.7 - 32.2 PG MCHC 33.6 32.3 - 36.5 g/dL Platelet Count 170 163 - 337 K/uL MPV 9.3 (L) 9.4 - 12.4 FL RDW 13.1 11.6 - 14.4 % Neutrophil % 63.6 34.0 - 67.9 % Lymphocyte % 27.2 21.8 - 53.1 % Monocyte % 7.7 5.3 - 12.2 % Eosinophil % 0.7 (L) 0.8 - 7.0 % Basophil % 0.5 0.2 - 1.2 % nRBC % 0.0 0.0 - 0.2 % Neutrophil # 6.75 (H) 1.78 - 5.38 K/UL Lymphocyte # 2.88 1.32 - 3.57 K/UL Monocyte # 0.82 0.30 - 0.82 K/UL Eosinophil # 0.07 0.04 - 0.54 K/UL Basophil # 0.05 0.01 - 0.08 K/UL Immature Gran % 0.3 0.0 - 0.4 % Immature Gran # 0.03 0.00 - 0.03 K/uL NRBC # 0.00 0.00 - 0.12 K/uL COMPREHENSIVE METABOLIC PANEL W/REFLEX MAGNESIUM Collection Time: 07/08/19 7:29 PM Result Value Ref Range Sodium 138 134 - 145 mmol/L Potassium 4.5 3.5 - 5.1 mmol/L Chloride 108 (H) 98 - 107 mmol/L CO2 22 22 - 30 mmol/L Calcium 9.1 8.3 - 10.1 mg/dl Albumin 3.7 3.5 - 5.0 g/dl BUN 17 9 - 20 mg/dl Creatinine 0.9 0.8 - 1.5 mg/dl Glucose 88 70 - 99 mg/dl Total Protein 7.1 6.3 - 8.2 g/dl Total Bilirubin 0.7 0.0 - 1.1 MG/DL AST 41 17 - 59 U/L ALT 26 21 - 72 U/L Alkaline Phosphatase 48 40 - 150 U/L eGFR >60 See Interpretation Below ml/min/1.73ml Sq BUN/Creatinine Ratio 19 6 - 22 RATIO Anion Gap 8 3 - 11 mmol/L A/G Ratio 1.1 0.8 - 2.0 ratio PROTHROMBIN TIME Collection Time: 07/08/19 7:29 PM Result Value Ref Range INR 1.22 (H) 0.79 - 1.15 Ratio Protime 15.2 (H) 11.4 - 14.3 sec TROPONIN Collection Time: 07/08/19 7:29 PM Result Value Ref Range Troponin 4.580 (HH) 0.000 - 0.034 ng/ml NT PROBNP Collection Time: 07/08/19 7:29 PM Result Value Ref Range NT PRO BNP 6,200 (H) <125 pg/ml PARTIAL THROMBOPLASTIN TIME Collection Time: 07/08/19 7:29 PM Result Value Ref Range PTT 34.6 22.8 - 34.7 SEC INPT/ED 12 LEAD EKG Collection Time: 07/08/19 7:40 PM Result Value Ref Range Ventricular Rate 88 BPM Atrial rate 88 BPM P-R Interval 188 ms QRS Duration 84 ms Q-T Interval 364 ms QTC Calculation (Bezet) 440 ms P [place] 4 degrees R [place] -57 degrees T [place] 75 degrees Diagnosis Line Electronic ventricular pacemaker When compared with ECG of 30-JAN-2018 07:32, Vent. rate has increased BY 12 BPM MAGNESIUM LEVEL Collection Time: 07/08/19 8:40 PM Result Value Ref Range Magnesium 1.9 1.6 - 2.3 MG/DL TROPONIN Collection Time: 07/08/19 10:00 PM Result Value Ref Range Troponin 4.610 (HH) 0.000 - 0.034 ng/ml PARTIAL THROMBOPLASTIN TIME Collection Time: 07/09/19 2:52 AM Result Value Ref Range PTT 71.5 (H) 22.8 - 34.7 SEC TROPONIN Collection Time: 07/09/19 2:52 AM Result Value Ref Range Troponin 3.820 (HH) 0.000 - 0.034 ng/ml HEPATITIS C ANTIBODY Collection Time: 07/09/19 4:37 AM Result Value Ref Range Hepatitis C Ab 0.02 <1.00 S/C PARTIAL THROMBOPLASTIN TIME Collection Time: 07/09/19 4:37 AM Result Value Ref Range PTT 76.4 (H) 22.8 - 34.7 SEC CBC WITH DIFFERENTIAL Collection Time: 07/09/19 4:37 AM Result Value Ref Range WBC Count 9.05 4.23 - 9.07 K/uL RBC Count 3.70 (L) 4.30 - 5.89 M/UL Hemoglobin 12.3 (L) 13.7 - 17.5 g/dL Hematocrit 37.0 (L) 40.1 - 51.0 % MCV 100.0 (H) 79.0 - 92.2 FL MCH 33.2 (H) 25.7 - 32.2 PG MCHC 33.2 32.3 - 36.5 g/dL Platelet Count 164 163 - 337 K/uL MPV 9.3 (L) 9.4 - 12.4 FL RDW 13.0 11.6 - 14.4 % Neutrophil % 56.1 34.0 - 67.9 % Lymphocyte % 34.0 21.8 - 53.1 % Monocyte % 7.8 5.3 - 12.2 % Eosinophil % 1.2 0.8 - 7.0 % Basophil % 0.6 0.2 - 1.2 % nRBC % 0.0 0.0 - 0.2 % Neutrophil # 5.07 1.78 - 5.38 K/UL Lymphocyte # 3.08 1.32 - 3.57 K/UL Monocyte # 0.71 0.30 - 0.82 K/UL Eosinophil # 0.11 0.04 - 0.54 K/UL Basophil # 0.05 0.01 - 0.08 K/UL Immature Gran % 0.3 0.0 - 0.4 % Immature Gran # 0.03 0.00 - 0.03 K/uL NRBC # 0.00 0.00 - 0.12 K/uL COMPREHENSIVE METABOLIC PANEL Collection Time: 07/09/19 4:37 AM Result Value Ref Range Sodium 139 134 - 145 mmol/L Potassium 4.2 3.5 - 5.1 mmol/L Chloride 107 98 - 107 mmol/L CO2 24 22 - 30 mmol/L Calcium 9.3 8.3 - 10.1 mg/dl Albumin 3.6 3.5 - 5.0 g/dl BUN 18 9 - 20 mg/dl Creatinine 1.0 0.8 - 1.5 mg/dl Glucose 85 70 - 99 mg/dl Total Protein 6.9 6.3 - 8.2 g/dl Total Bilirubin 0.6 0.0 - 1.1 MG/DL AST 37 17 - 59 U/L ALT 27 21 - 72 U/L Alkaline Phosphatase 60 40 - 150 U/L eGFR >60 See Interpretation Below ml/min/1.73ml Sq BUN/Creatinine Ratio 18 6 - 22 RATIO Anion Gap 8 3 - 11 mmol/L A/G Ratio 1.1 0.8 - 2.0 ratio MAGNESIUM LEVEL Collection Time: 07/09/19 4:37 AM Result Value Ref Range Magnesium 1.9 1.6 - 2.3 MG/DL PROTHROMBIN TIME Collection Time: 07/09/19 11:49 AM Result Value Ref Range INR 1.25 (H) 0.79 - 1.15 Ratio Protime 15.4 (H) 11.4 - 14.3 sec Studies: Xr Chest 2 View Pa And Lateral (standard) Result Date: 07/09/2019 Procedure(s): XR CHEST 2 VIEW PA AND LATERAL (STANDARD) Date of service: 2018 1:20 PM Provided clinical information: 58 years, Male, "congestive heart failure" Procedure and materials: Standard protocol. Comparison studies: 2014. Observations: The lungs are adequately aerated. There is no pneumothorax. No significant effusion. No airspace consolidation. Unchanged multilead cardiac device. The cardiac silhouette appears normal. No definite vascular congestion. No acute osseous abnormality is evident. No acute findings. Urgency: Routine. This is a routine medical imaging report. Recommendation: No specific imaging recommendation. Signed by Zelalem Perez MD on 07/09/2019 1:35 PM Cardiac Catheterization Result Date: 07/09/2019 Severe left anterior descending and LCx disease. Moderate left main disease. Diet: NPO Sips with Meds Diet Type: Regular; Sodium Restriction: No Added Salt; Other Restriction(s): Low Fat, Cardiac DVTp: heparin Code Status: Full Code For ease of review, Assessments & Plans have been moved to the top of the note. Patient was seen and discussed with Dr. Kaba, who agrees with the assessment and plan. Author: Deanna Godoy DO Emergency Medicine, PGY-1 07/09/2019 14:53 Associated attestation - Jose Kaba MD - 07/09/2019 8:12 PM ED[facility] Supervising MD Documentation Patient: Chris Bahena Date of Service: 07/09/2019 All relevant medical records were discussed and reviewed along with the cardiovascular fellow and resident team. I personally corroborated the history and examined the patient myself. Plan was discussed with the medical team and I agree with the recommendations below. Plan was discussed with the patient and all concerns/questions were addressed. Jose Kaba MD, [facility] Supervising Physician Gregory Vila MD - 07/09/2019 12:10 AM Tasneemdaria Lucrecia Bahena [id number] Indications for procedure: NSTEMI, acutely reduced LVEF Procedure required: Left heart catheterization Preferred Schedule Date/Time: July 09, 2019 HPI: 58-year-old gentleman with an extensive history of coronary artery disease as noted below, who presented to an outside hospital ER with left-sided chest pressure which radiated to his left arm. This is not as severe or similar to his symptoms of his previous MIs, however due to the chest pain and hiscardiac history, he presented to outside hospital ER. His EKG did not appear to have new ischemic changes, but his troponin was elevated at 7.02 and a transthoracic echocardiogram showed reduced LVEF of 25 to 30%, which was decreased from an EF of 40 to 45% in 2017. Given his cardiac history as wellas acutely reduced LVEF , he was transferred to [facility] for left heart catheterization. Relevant history: 1. Coronary artery disease status post GA at the age of 28 initially treated medically. TAXUS stentplaced to LAD with jailed diagonal branch June [address] Beatty. Mo stent placed in the left circumflex artery in September [address] Bloom. Repeat coronary angiography performed in April 2009 showed mild diffuse left main disease, 90% LAD stenosis status post a Taxus drug-eluting stent. Finally, patient presented within anterior wall myocardial infarction in June 2009 which found two-vessel coronary disease involving chronic occlusions of the circumflex and right coronary arteries. 2. Peripheral vascular disease with chronic total occlusion of the left popliteal artery not amenable to revascularization 3. Chronic systolic heart failure with most recent echo performed in 2016 showing LVEF of 40 to 45%, status post biventricular pacemaker and ICD implantation 4. Calcified thrombus at the LV apex Pulses: Grade 0-3 Right: Radial - 2 Ulnar - 2 Femoral - 3 TP - 1 DP - 2 Left: Radial - 2 Ulnar - 2 Femoral - 3 TP - 0 DP - 0 EKG - A-sensed, V-paced rhythm. Unable to assess for ischemic changes. Imaging (Echo, Stress Imagine, Angiograms, etc.) TTE on 02/2017 Left ventricular cavity size is top normal. Echogenic structure seen at the apex, measuring 0.7 cmx0.4 cm. This is most likely a calcified thrombus. Global systolic function is mildly depressed, with an estimated ejection fraction of 40-45%. Multivessel regional wall motion abnormalities as described below. The right ventricle is normal in size with normal contractility. Right ventricle is normal in size with preserved contractility. Normal RA and LA size. No hemodynamically significant valvular abnormalities. CORONARY ANGIOGRAPHY on 06/2019: 1. LEFT MAIN CORONARY ARTERY: The left main coronary artery contains mild luminal irregularity. 2. LEFT ANTERIOR DESCENDING CORONARY ARTERY: The left anterior descending coronary artery wraps around the cardiac apex and is free of significant disease. Proximally, it contains luminal irregularity.The stented mid artery remains widely patent. The distal artery initially has slow flow with the first injection, but subsequently has normal flow. A large diagonal branch contains an ostial/proximal 50% smooth stenosis. 3. CIRCUMFLEX CORONARY ARTERY: The circumflex coronary artery is nondominant and is significantly diseased.There was no significant instent restenosis with a mild ostial luminal narrowing. A moderate-sized first obtuse marginal branch contains luminal irregularity. A large bifurcating second obtuse marginal branch appears relatively normal. The distal circumflex coronary artery is occluded with [id number] collaterals. 4. RIGHT CORONARY ARTERY: The right coronary artery is dominant and is significantly diseased.Proximally, it contains stenosis of up to 50%. The mid artery is totally occluded and the distal artery fills via [id number] and ejzb-kz-wofvu collaterals. Current meds ASA 81 mg Atorvastatin 40 mg Coreg 12.5 mg BID Ramapril (held) Aldactone (held) Heparin drip Issues: Anticoagulation with heparin drip Contrast or medication allergy - Fish dye? Dr. Bloom was able to use Visipaque in the past without issue, per documented cath report. PVD - per above. Laboratory values: As of 07/08/19 at 19:29 Hgb 12.5, Plt 170, INR 1.22 Shot Lighter 0.9 I explained the heart catheterization and possible angioplasty/stent procedure as well as the attendant risks. Major risks include, but are not limited to, major bleeding requiring blood transfusions or surgical repair, cerebrovascular accident, myocardial infarction, ventricular tachycardia, fibrillation or serious arrhythmia or even . Other risks include aortic dissection, cardiac perforation,tamponade, contract reaction including anaphylaxis or nephrotoxicity, heart block, hemorrhage (local, retroperitoneal), infection, thrombosis, vascular injury or pseudoaneurysm. The patient understandsthe risks and wishes to proceed. All questions were answered to their satisfaction. Gregory Vila MD, Smearer PGY-4 documented in this encounter Plan of Treatment Date Type Specialty Care Team Description 07/15/2019 AntiCoag Anticoagulation 07/17/2019 Office Visit Internal Medicine Griffin Yuan MD [address] [place] [address] [phone] 07/21/2019 Nurse/Clinical Support Internal Medicine 07/23/2019 Lab Internal Medicine 07/30/2019 Office Visit Cardiology Maria Del Carmen Elliott CRNP [address] [address] 08/05/2019 [facility] Arrhythmia Center 08/07/2019 Office Visit Family Practice Katie Razo FNP [address] [place] [address] [phone] 11/04/2019 Office Visit Vascular Surgery Odalis Randhawa MD [address] [address] 12/09/2019 [facility] Arrhythmia Center Name Type Priority Associated Diagnoses Date/Time INPT/ED 12 LEAD EKG EKG STAT 07/08/2019 7:40 PM EDT CARDIAC CATHETERIZATION Cardiac Cath Routine 07/09/2019 11:06 AM EDT VL NECK CAROTID BILATERAL Imaging Routine 07/09/2019 3:22 PM EDT Name Type Priority Associated Diagnoses Order Schedule REFER TO ANTICOAGULATION Referral Routine NSTEMI (non-ST Ordered: 2018 SERVICES elevated myocardial infarction) (HCC) Health Maintenance Due Date Last Done Comments Diabetic Eye Exam 1960 [facility] IMMUNIZATION SERIES 2009 (1 of 2) MEDICARE ANNUAL WELLNESS 05/17/2013 05/17/2012 VISIT FOOT EXAM 01/18/2018 01/18/2017, 01/18/2017, 02/11/2014, Additional history exists DEPRESSION SCREENING 06/17/2019 06/17/2018 INFLUENZA VACCINE (#1) 2019 08/01/2018, 08/13/2017, 08/25/2016, Additional history exists HEMOGLOBIN A1C 01/07/2020 07/09/2019, 04/10/2019, 01/08/2019, Additional history exists LIPID DISORDER SCREENING 07/11/2020 07/11/2019, 07/10/2019, 08/01/2018, Additional history exists COLONOSCOPY SCREENING 03/13/2022 03/13/2017, [...] Problems Progress Blood Pressure Blood Pressure Essential 142/66 No Roberts, < 140/90 hypertension, (07/11/2019 Griffin Gray, benign 4:00 PM EDT) Note: Hypertension Care Plan Based on [...] Educational Resources: National Heart, Lung, & Blood [place] http://nhlbi.nih.gov/hbp/index.html The DASH Diet Eating Plan http://www.nhlbi.nih.gov/health/health-topics/ topics/dash/ Academy of Nutrition & DIetetics http://eatright.org National Smoking Cessation Site http://smokefree.gov Blood Pressure < Blood Pressure 142/66 (07/11/2019 Katie Kitchen FNP 140/90 4:00 PM EDT) Note: This is an individualized treatment (blood pressure) goal for Chris Bahena: Displayed above (on the left) is your goal for blood pressure control. Your most recent blood pressure is also shown above, on the right. You should try to achieve blood pressures that are lower than your goal listed above (on the left). Weight increase vs. 18 mo CHF 33.19 (07/11/2019 5:30 AM Katie Kitchen FNP min (lbs) < 5 EDT) Note: This is an individualized treatment (congestive heart failure, CHF) goal for Chris Bahena: Displayed above (on the right) is how [...] an individualized treatment (COPD) goal for Chris Bahena: Quit smoking immediately! Your provider has information and resources that may help you to quit. Glycohemoglobin A1c < 7.0 Diabetes 6.6 (07/09/2019 11:49 Katie Kitchen FNP AM EDT) Note: This is an individualized treatment (diabetes control, HgbA1C) goal for Chris Bahena: Displayed above is your progress towards your HgbA1C goal. Your goal is shown above (on the left); your most recent HgbA1C is shown on the right. Note that lower numbers are better. Keep immunizations current Lifestyle Katie Kitchen FNP Note: This is an individualized lifestyle goal for Chris Bahena: Please be sure to keep up-to-date on recommended immunizations. For example, this would include a yearly influenza vaccine. Immunization status can be seen by looking at the Health Maintenance sections of your eGuthrie, Plan of Care, and any After Visit Summaries. Consume a ht-nleka-kudl diet Lifestyle No Katie Razo FNP Note: This is an individualized lifestyle goal for Chris Bahena: Please do not add additional salt to your food. Additional salt may lead to fluid retention and worsen your congestive heart failure. Take all prescribed medications as Self-management Katie Kitchen FNP directed Note: This is an individualized self-management goal for Chris Bahena: Please take all prescribed medications as directed. [...] is an individualized self-management goal for Chris Bahena: Please check your weight daily. Refer to the accompanying CHF treatment goal and call your doctor immediately for further instructions on how to respond to unexpected weight gain. documented as of this encounter Implants Implanted Type Area Programs Assistant Device Shelf Model / Identifier Expiration Serial / Date Lot 2.5 X 12 Xience - [id number] Circumflex VALDEZ VASCULAR [id number] / Implanted: Qty: 1 on 10/05/2008 at [facility] [id number] / [id number] 2.5/32 Taxus Liberte - [id number] LAD BOSTON [id number] / Implanted: Qty: 1 on 05/21/2009 at [facility] / [id number] Promote Plus Icd [id number] - [id number] Left: Chest [facility]AY 11/21/2010 [id number] / Implanted: Qty: 1 on 08/19/2009 at [facility]/PACESET [id number] / TER Lead Tendril # [id number]-52 - [id number] Left: Chest ST ZAY 05/21/2012 [id number] / Implanted: Qty: 1 on 08/19/2009 at [facility]/PACESET [id number] / TER 7121/65 Durata Lead - [id number] Left: Chest [facility] 02/19/2012 7121/65 / Implanted: Qty: 1 on 08/19/2009 at [facility], [facility]. [id number] / 1158t Quickflex Lead - [id number] Left: Chest [facility] 03/21/2012 [id number] / Implanted: Qty: 1 on 08/19/2009 at [facility], [facility]. [id number] / Biotenodesis Screw 8 X 12mm - [id number] Right: Biceps ARTHREX [id number] / Implanted: Qty: 1 on 02/21/2011 at [facility] / [id number] Quartet 1458q-86cm - [id number] N/A: Chest [facility] 03/21/2018 [id number] / Implanted: Qty: 1 on 07/12/2015 by Jack Chavez MD at [facility], [facility]. [id number] / Tyrx Large Absorbable Antibacterial Envelope - [id number] N/A: Chest [employer] 08/21/2015 [id number] / Implanted: Qty: 1 on 07/12/2015 by Jack Chavez MD at [facility] / [id number] Quadra Assura [id number] - [id number] N/A: Chest [facility] 03/21/2017 [id number] / Implanted: Qty: 1 on 07/12/2015 by Jack Chavez MD at [facility], [facility]. [id number] / Optisense Lead - [id number] N/A: Chest [facility] 04/20/2018 52 / Implanted: Qty: 1 on 07/12/2015 by Jack Chavez MD at [facility], [facility]. [id number] / documented as of this encounter Procedures Procedure Name Priority Date/Time Associated Comments Diagnosis HC GLUCOSE, BY MONITOR Routine 07/11/2019 4:24 Results for this PM EDT procedure are in the results section. HC GLUCOSE, BY MONITOR Routine 07/11/2019 12:15 Results for this PM EDT procedure are in the results section. HC GLUCOSE, BY MONITOR Routine 07/11/2019 8:22 Results for this AM EDT procedure are in the results section. HC GLUCOSE, BY MONITOR Routine 07/11/2019 7:48 Results for this AM EDT procedure are in the results section. MAGNESIUM LEVEL Routine 07/11/2019 6:39 Results for this AM EDT procedure are in the results section. BASIC METABOLIC PANEL Routine 07/11/2019 6:39 Results for this AM EDT procedure are in the results section. PROTHROMBIN TIME Routine 07/11/2019 6:39 Results for this AM EDT procedure are in the results section. CBC NO DIFFERENTIAL Routine 07/11/2019 6:39 Results for this AM EDT procedure are in the results section. PARTIAL THROMBOPLASTIN Routine 07/11/2019 6:39 Results for this TIME AM EDT procedure are in the results section. HC GLUCOSE, BY MONITOR Routine 07/11/2019 1:16 Results for this AM EDT procedure are in the results section. GLUCOSE, BLOOD STAT 07/11/2019 12:55 Results for this AM EDT procedure are in the results section. CBC NO DIFFERENTIAL Routine 07/11/2019 12:51 Results for this AM EDT procedure are in the results section. PARTIAL THROMBOPLASTIN Routine 07/11/2019 12:51 Results for this TIME AM EDT procedure are in the results section. HC GLUCOSE, BY MONITOR Routine 07/11/2019 12:50 Results for this AM EDT procedure are in the results section. HC GLUCOSE, BY MONITOR Routine 07/10/2019 10:00 Results for this PM EDT procedure are in the results section. HC GLUCOSE, BY MONITOR Routine 07/10/2019 3:22 Results for this PM EDT procedure are in the results section. HC GLUCOSE, BY MONITOR Routine 07/10/2019 12:08 Results for this PM EDT procedure are in the results section. HC GLUCOSE, BY MONITOR Routine 07/10/2019 7:50 Results for this AM EDT procedure are in the results section. PROTHROMBIN TIME Routine 07/10/2019 7:12 Results for this AM EDT procedure are in the results section. PARTIAL THROMBOPLASTIN Routine 07/10/2019 7:12 Results for this TIME AM EDT procedure are in the results section. MAGNESIUM LEVEL Routine 07/10/2019 7:11 Results for this AM EDT procedure are in the results section. LIPID PROFILE Routine 07/10/2019 7:11 Results for this AM EDT procedure are in the results section. BASIC METABOLIC PANEL Routine 07/10/2019 7:11 Results for this AM EDT procedure are in the results section. CBC NO DIFFERENTIAL Routine 07/10/2019 7:11 Results for this AM EDT procedure are in the results section. HC GLUCOSE, BY MONITOR Routine 07/09/2019 8:40 Results for this PM EDT procedure are in the results section. HC GLUCOSE, BY MONITOR Routine 07/09/2019 3:26 Results for this PM EDT procedure are in the results section. PFT ROUTINE STUDIES Routine 07/09/2019 2:28 Results for this PM EDT procedure are in the results section. XR CHEST 2 VIEW PA AND STAT 07/09/2019 1:30 Results for this LATERAL (STANDARD) PM EDT procedure are in the results section. RAINBOW DRAW LAVENDER STAT 07/09/2019 11:49 TOP AM EDT GLYCOHEMOGLOBIN A1C Routine 07/09/2019 11:49 Results for this AM EDT procedure are in the results section. PROTHROMBIN TIME Routine 07/09/2019 11:49 Results for this AM EDT procedure are in the results section. CBC WITH DIFFERENTIAL Routine 07/09/2019 4:37 Results for this AM EDT procedure are in the results section. HEPATITIS C ANTIBODY Routine 07/09/2019 4:37 Results for this AM EDT procedure are in the results section. MAGNESIUM LEVEL Routine 07/09/2019 4:37 Results for this AM EDT procedure are in the results section. COMPREHENSIVE METABOLIC Routine 07/09/2019 4:37 Results for this PANEL AM EDT procedure are in the results section. PARTIAL THROMBOPLASTIN Routine 07/09/2019 4:37 Results for this TIME AM EDT procedure are in the results section. TROPONIN STAT 07/09/2019 2:52 Results for this AM EDT procedure are in the results section. PARTIAL THROMBOPLASTIN Routine 07/09/2019 2:52 Results for this TIME AM EDT procedure are in the results section. TROPONIN STAT 07/08/2019 10:00 Results for this PM EDT procedure are in the results section. MAGNESIUM LEVEL STAT 07/08/2019 8:40 Results for this PM EDT procedure are in the results section. CBC WITH DIFFERENTIAL STAT 07/08/2019 7:29 Results for this PM EDT procedure are in the results section. COMPREHENSIVE METABOLIC STAT 07/08/2019 7:29 Results for this PANEL W/REFLEX MAGNESIUM PM EDT procedure are in the results section. NT PROBNP STAT 07/08/2019 7:29 Results for this PM EDT procedure are in the results section. TROPONIN STAT 07/08/2019 7:29 Results for this PM EDT procedure are in the results section. PROTHROMBIN TIME STAT 07/08/2019 7:29 Results for this PM EDT procedure are in the results section. PARTIAL THROMBOPLASTIN STAT 07/08/2019 7:29 Results for this TIME PM EDT procedure are in the results section. documented in this encounter Results GLUCOSE (POCT) (07/11/2019 4:24 PM EDT) Glucose POCT 157 (H) 70 - 99 mg/dl POINT OF CARE Result Comment: TESTING Performed at: [facility] POCT Patrick Owen MD, Laboratory Surgical Assistant Certified [address] [address] Specimen Performing Organization Address City/State/Zipcode Phone Number POINT OF CARE TESTING GLUCOSE (POCT) (07/11/2019 12:15 PM EDT) Glucose POCT 136 (H) 70 - 99 mg/dl POINT OF CARE Result Comment: TESTING Performed at: [facility] POCT Patrick Owen MD, Laboratory Surgical Assistant Certified [address] [address] Specimen Performing Organization Address [facility] [place] [facility] Phone Number POINT OF CARE TESTING GLUCOSE (POCT) (07/11/2019 8:22 AM EDT) Glucose POCT 163 (H) 70 - 99 mg/dl POINT OF CARE Result Comment: TESTING Performed at: [facility] POCT Patrick Owen MD, Laboratory Surgical Assistant Certified [address] [address] Specimen Performing Organization Address City/[facility] [place] [facility] Phone Number POINT OF CARE TESTING GLUCOSE (POCT) (07/11/2019 7:48 AM EDT) Glucose POCT 158 (H) 70 - 99 mg/dl POINT OF CARE Result Comment: TESTING Performed at: [facility] POCT Patrick Owen MD, Laboratory Surgical Assistant Certified [address] [address] Specimen Performing Organization Address [facility] [place] Phone Number POINT OF CARE TESTING PROTHROMBIN TIME (07/11/2019 6:39 AM EDT) INR 1.09 0.79 - 1.15 [facility] Comment: [facility] LABORATORY INR Therapeutic Range: 2.0 - 3.5 Protime 13.8 11.4 - 14.3 sec [facility] Specimen Blood Performing Organization Address [facility] [place] Phone Number [facility] [address] [address] PARTIAL THROMBOPLASTIN TIME (07/11/2019 6:39 AM EDT) PTT 65.4 (H) 22.8 - 34.7 SEC [facility] Specimen Blood Performing Organization Address [facility] Phone Number [facility] [address] [address] MAGNESIUM LEVEL (07/11/2019 6:39 AM EDT) Magnesium 1.8 1.6 - 2.3 MG/DL [facility] Specimen Blood Performing Organization Address [facility] Phone Number [facility] [address] [address] BASIC METABOLIC PANEL (07/11/2019 6:39 AM EDT) Glucose 180 (H) 70 - 99 mg/dl [facility] BUN 24 (H) 9 - 20 mg/dl [facility] Creatinine 1.0 0.8 - 1.5 mg/dl [facility] Sodium 136 134 - 145 mmol/L [facility] Potassium 4.0 3.5 - 5.1 mmol/L [facility] Chloride 106 98 - 107 mmol/L [facility] CO2 25 22 - 30 mmol/L [facility] Calcium 8.6 8.3 - 10.1 mg/dl [facility] eGFR >60 See Interpretation [facility] Comment: Below ml/min/1.73ml GROUP Sq LABORATORY Estimated GFR Interpretation: Above 60ml/min/1.73m2 = Normal Renal Function 30-59 ml/min/1.73m2 = Stage 3 Chronic Kidney Disease 15-29 ml/min/1.73m2 = Stage 4 Chronic Kidney Disease Less than 15 ml/min/1.73m2 = Stage 5 Chronic Kidney Disease The GFR value is calculated using the Modification of Diet in Renal Disease ( MDRD) Study Equation which can be found at: https://www.kidney.org/content/lxmm-ylive-okfxrcva BUN/Creatinine 24 (H) 6 - 22 RATIO [facility] Ratio [facility]OR[facility] Anion Gap 5 3 - 11 mmol/L [facility] Specimen Blood Performing Organization Address City/State/Zipcode Phone Number [facility] 1 [facility] CBC NO DIFFERENTIAL (07/11/2019 6:39 AM EDT) WBC Count 7.45Comment: 4.23 - 9.07 [facility] Methodology was K/uL GROUP LABORATORY changed 10/24/2018. Please note updated reference range and units. RBC Count 3.44 (L) 4.30 - 5.89 [facility] M/UL GROUP LABORATORY Hemoglobin 11.4 (L) 13.7 - 17.5 [facility] g/dL GROUP LABORATORY Hematocrit 33.7 (L) 40.1 - 51.0 % [facility] MCV 98.0 (H) 79.0 - 92.2 [facility] FL GROUP LABORATORY MCH 33.1 (H) 25.7 - 32.2 [facility] PG GROUP LABORATORY MCHC 33.8 32.3 - 36.5 [facility] g/dL GROUP LABORATORY Platelet Count 139 (L) 163 - 337 [facility] K/uL GROUP LABORATORY MPV 9.4 9.4 - 12.4 FL [facility] RDW 12.8 11.6 - 14.4 % [facility] Specimen Blood Performing Organization Address [facility] Phone Number [facility] [address] [place] [address] [address] [phone] GLUCOSE (POCT) (07/11/2019 1:16 AM EDT) Glucose POCT 215 (H) 70 - 99 mg/dl POINT OF CARE Result Comment: TESTING Performed at: [facility] POCT Patrick Owen MD, Laboratory Surgical Assistant Certified [address] [address] Specimen Performing Organization Address [facility] Phone Number POINT OF CARE TESTING GLUCOSE, BLOOD (07/11/2019 12:55 AM EDT) Glucose 36 (LL) 70 - 99 mg/dl [facility] Specimen Blood Performing Organization Address [facility] [place] Phone Number [facility] [address] [address] [phone] PARTIAL THROMBOPLASTIN TIME (07/11/2019 12:51 AM EDT) PTT 49.5 (H) 22.8 - 34.7 SEC [facility] Specimen Blood Performing Organization Address [facility] Phone Number [facility] [address] [place] [address] [address] CBC NO DIFFERENTIAL (07/11/2019 12:51 AM EDT) WBC Count 10.33 (H)Comment: 4.23 - 9.07 [facility] Methodology was K/uL GROUP LABORATORY changed 10/24/2018. Please note updated reference range and units. RBC Count 3.69 (L) 4.30 - 5.89 [facility] M/UL GROUP LABORATORY Hemoglobin 12.2 (L) 13.7 - 17.5 [facility] g/dL [facility] Hematocrit 36.6 (L) 40.1 - 51.0 % [facility] MCV 99.2 (H) 79.0 - 92.2 [facility] FL GROUP LABORATORY MCH 33.1 (H) 25.7 - 32.2 [facility] PG GROUP LABORATORY MCHC 33.3 32.3 - 36.5 [facility] g/dL GROUP LABORATORY Platelet Count 168 163 - 337 [facility] K/uL GROUP LABORATORY MPV 9.3 (L) 9.4 - 12.4 FL [facility] RDW 13.2 11.6 - 14.4 % [facility] Specimen Blood Performing Organization Address [facility] Phone Number [facility] [address] [address] [phone] GLUCOSE (POCT) (07/11/2019 12:50 AM EDT) Glucose POCT 47 (LL) 70 - 99 mg/dl POINT OF CARE Result Comment: TESTING Performed at: [facility] POCT Patrick Owen MD, Laboratory Surgical Assistant Certified [address] [place] [address] [address] Specimen Performing Organization Address [facility] Phone Number POINT OF CARE TESTING GLUCOSE (POCT) (07/10/2019 10:00 PM EDT) Glucose POCT 324 (H) 70 - 99 mg/dl POINT OF CARE Result Comment: TESTING Performed at: [facility] POCT Patrick Owen MD, Laboratory Surgical Assistant Certified [address] [place] [address] [address] Specimen Performing Organization Address [facility] Phone Number POINT OF CARE TESTING GLUCOSE (POCT) (07/10/2019 3:22 PM EDT) Glucose POCT 175 (H) 70 - 99 mg/dl POINT OF CARE Result Comment: TESTING Performed at: [facility] POCT Patrick Owen MD, Laboratory Surgical Assistant Certified [address] [address] Specimen Performing Organization Address [facility] Phone Number POINT OF CARE TESTING GLUCOSE (POCT) (07/10/2019 12:08 PM EDT) Glucose POCT 101 (H) 70 - 99 mg/dl POINT OF CARE Result Comment: TESTING Performed at: [facility] POCT Patrick Owen MD, Laboratory Surgical Assistant Certified [address] [address] Specimen Performing Organization Address [facility] [place] [facility] Phone Number POINT OF CARE TESTING GLUCOSE (POCT) (07/10/2019 7:50 AM EDT) Glucose POCT 111 (H) 70 - 99 mg/dl POINT OF CARE Result Comment: TESTING Performed at: [facility] POCT Patrick Owen MD, Laboratory Surgical Assistant Certified [address] [address] Specimen Performing Organization Address [facility] [place] Phone Number POINT OF CARE TESTING PROTHROMBIN TIME (07/10/2019 7:12 AM EDT) INR 1.16 (H) 0.79 - 1.15 [facility] Comment: [facility] LABORATORY INR Therapeutic Range: 2.0 - 3.5 Protime 14.5 (H) 11.4 - 14.3 sec [facility] Specimen Blood Performing Organization Address [facility] [place] Phone Number [facility] [address] [address] PARTIAL THROMBOPLASTIN TIME (07/10/2019 7:12 AM EDT) PTT 86.0 (H) 22.8 - 34.7 SEC [facility] Specimen Blood Performing Organization Address [facility] [place] Phone Number [facility] [address] [address] MAGNESIUM LEVEL (07/10/2019 7:11 AM EDT) Magnesium 1.8 1.6 - 2.3 MG/DL [facility] Specimen Blood Performing Organization Address [facility] Phone Number [facility] [address] [address] BASIC METABOLIC PANEL (07/10/2019 7:11 AM EDT) Glucose 98 70 - 99 mg/dl [facility] BUN 19 9 - 20 mg/dl [facility] Creatinine 1.1 0.8 - 1.5 mg/dl [facility] Sodium 137 134 - 145 mmol/L [facility] Potassium 4.3 3.5 - 5.1 mmol/L [facility] Chloride 107 98 - 107 mmol/L [facility] CO2 24 22 - 30 mmol/L [facility] Calcium 9.1 8.3 - 10.1 mg/dl [facility] eGFR >60 See Interpretation [facility] Comment: Below ml/min/1.73ml GROUP Sq LABORATORY Estimated GFR Interpretation: Above 60ml/min/1.73m2 = Normal Renal Function 30-59 ml/min/1.73m2 = Stage 3 Chronic Kidney Disease 15-29 ml/min/1.73m2 = Stage 4 Chronic Kidney Disease Less than 15 ml/min/1.73m2 = Stage 5 Chronic Kidney Disease The GFR value is calculated using the Modification of Diet in Renal Disease ( MDRD) Study Equation which can be found at: https://www.kidney.org/content/gzdp-augad-vtzpzumo BUN/Creatinine 17 6 - 22 RATIO [facility] Ratio [facility] Anion Gap 6 3 - 11 mmol/L [facility] Specimen Blood Performing Organization Address City/State/Zipcode Phone Number [facility] [address] [facility] [place] [address] CBC NO DIFFERENTIAL (07/10/2019 7:11 AM EDT) WBC Count 7.46Comment: 4.23 - 9.07 [facility] Methodology was K/uL [facility] changed 10/24/2018. Please note updated reference range and units. RBC Count 3.56 (L) 4.30 - 5.89 [facility] M/UL [facility] Hemoglobin 11.8 (L) 13.7 - 17.5 [facility] g/dL [facility] Hematocrit 35.5 (L) 40.1 - 51.0 % [facility] MCV 99.7 (H) 79.0 - 92.2 [facility] FL [facility] MCH 33.1 (H) 25.7 - 32.2 [facility] PG [facility] MCHC 33.2 32.3 - 36.5 [facility] g/dL [facility] Platelet Count 144 (L) 163 - 337 [facility] K/uL [facility] MPV 9.3 (L) 9.4 - 12.4 FL [facility] RDW 12.9 11.6 - 14.4 % [facility] Specimen Blood Performing Organization Address [facility] [place] Phone Number [facility] [address] [place] [address] LIPID PROFILE (07/10/2019 7:11 AM EDT) Cholesterol 98 <200 mg/dl [facility] HDL Cholesterol 34 (L) >40 mg/dl [facility] Triglycerides 92 <150 mg/dl [facility] LDL Cholesterol 46 <100 MG/DL [facility] Cholesterol / HDL Ratio 2.9 RATIO [facility] LDL / HDL Ratio 1.3 [facility] Non-HDL Cholesterol 64 0 - 130 MG/DL [facility] Specimen Blood Performing Organization Address [facility] [place] Phone Number [facility] [address] [place] [address] [phone] GLUCOSE (POCT) (07/09/2019 8:40 PM EDT) Glucose POCT 98 70 - 99 mg/dl POINT OF CARE Result Comment: TESTING Performed at: [facility] POCT Patrick Owen MD, Laboratory Surgical Assistant Certified [address] [place] [address] Specimen Performing Organization Address [facility] [place] Phone Number POINT OF CARE TESTING GLUCOSE (POCT) (07/09/2019 3:26 PM EDT) Glucose POCT 140 (H) 70 - 99 mg/dl POINT OF CARE Result Comment: TESTING Performed at: [facility] POCT Patrick Owen MD, Laboratory Surgical Assistant Certified [address] [place] [address] Specimen Performing Organization Address [facility] [place] Phone Number POINT OF CARE TESTING PFT ROUTINE STUDIES (07/09/2019 2:28 PM EDT) Specimen Narrative Performed At RESPIRATORY THER [facility] Pulmonary Function Lab [place] [id number] Last Name: JOSEF CHRIS Room Number: 6W [employer] Silversmith: ELISE Date: 1960 Age: 58 Weight: 176.0 lbs, 80.0 kg Gender: Male Height: 66.5 in, 168.9 cm Physician Name: ROSALVA WOO ([id number]) Date: 07/09/2019 2:28:35 PM Smoke Status: Smokes BMI: 28.04 kg/m2 Predicted Protocol: MOD 01 EigenWang NHANESIII C PR MANAGER NOTES 4 Puffs Albuterol Administered Click "view image" for full report Spirometry Test Quality: 4 Patient unable to reach EOT on each maneuver due to feeling empty early Patient unable to match Pre/Post SVC to FVC after mulitple attempts DLCO Test Quality: 4 DLCO Corrected to HGB of: 11.8 Time Since Last Cigarette: 1300 Sunday afternoon Diagnosis / Reason for Test: Pre Op Last Study: No Previous study Good effort PHYSICIAN INTERPRETATION Findings: Based on the patient's performance and the technical quality of the study this pulmonary function test is acceptable for interpretation. Spirometry : Borderline airflow limitation. FEV1 and FVC are within normal limits. There is no significant improvement after the administration of bronchodilators. Lung volumes by plethysmography : Not performed DLCO : Borderline decreased Impression: Borderline airflow limitation and borderline decrease in DLCO. There is there is no significant improvement in FEV1 postbronchodilator administration yet this does not preclude a clinical trial if indicated. Interpreted by: Susu Wallace MD Procedure Note Interface, Multispeciality Results - 07/11/2019 1:52 PM EDT [facility] Pulmonary Function Lab [place] [id number] Last Name: CHRIS BAHENA Room Number: 6W [employer] Silversmith: ELISE Date: 1960 Age: 58 Weight: 176.0 lbs, 80.0 kg Gender: Male Height: 66.5 in, 168.9 cm Physician Name: ROSALVA WOO ([id number]) Date: 07/09/2019 2:28:35 PM Smoke Status: Smokes BMI: 28.04 kg/m2 Predicted Protocol: MOD EigenWang NHANESIII C PR MANAGER NOTES 4 Puffs Albuterol Administered Click "view image" for full report Spirometry Test Quality: 4 Patient unable to reach EOT on each maneuver due to feeling empty early Patient unable to match Pre/Post SVC to FVC after mulitple attempts DLCO Test Quality: 4 DLCO Corrected to HGB of: 11.8 Time Since Last Cigarette: 1300 Sunday afternoon Diagnosis / Reason for Test: Pre Op Last Study: No Previous study Good effort PHYSICIAN INTERPRETATION Findings: Based on the patient's performance and the technical quality of the study this pulmonary function test is acceptable for interpretation. Spirometry : Borderline airflow limitation. FEV1 and FVC are within normal limits. There is no significant improvement after the administration of bronchodilators. Lung volumes by plethysmography : Not performed DLCO : Borderline decreased Impression: Borderline airflow limitation and borderline decrease in DLCO. There is there is no significant improvement in FEV1 postbronchodilator administration yet this does not preclude a clinical trial if indicated. Interpreted by: Susu Wallace MD Performing Organization Address City/State/Zipcode Phone Number RESPIRATORY THER XR CHEST 2 VIEW PA AND LATERAL (STANDARD) (07/09/2019 1:30 PM EDT) Specimen Impressions Performed At No acute findings. Urgency: Routine. This is a routine medical imaging report. Recommendation: No specific imaging recommendation. Signed by Zelalem Perez MD on 07/09/2019 1:35 PM Narrative Performed At Procedure(s): XR CHEST 2 VIEW PA AND LATERAL (STANDARD) Date of service: 07/09/2019 1:20 PM Provided clinical information: 58 years, Male, "congestive heart failure" Procedure and materials: Standard protocol. Comparison studies: 07/13/2015. Observations: The lungs are adequately aerated. There is no pneumothorax. No significant effusion. No airspace consolidation. Unchanged multilead cardiac device. The cardiac silhouette appears normal. No definite vascular congestion. No acute osseous abnormality is evident. Procedure Note Interface, Rad Results - 07/09/2019 1:37 PM EDT Procedure(s): XR CHEST 2 VIEW PA AND LATERAL (STANDARD) Date of service: 07/09/2019 1:20 PM Provided clinical information: 58 years, Male, "congestive heart failure" Procedure and materials: Standard protocol. Comparison studies: 07/13/2015. Observations: The lungs are adequately aerated. There is no pneumothorax. No significant effusion. No airspace consolidation. Unchanged multilead cardiac device. The cardiac silhouette appears normal. No definite vascular congestion. No acute osseous abnormality is evident. IMPRESSION No acute findings. Urgency: Routine. This is a routine medical imaging report. Recommendation: No specific imaging recommendation. Signed by Zelalem Perez MD on 07/09/2019 1:35 PM GLYCOHEMOGLOBIN A1C (07/09/2019 11:49 AM EDT) Glycohemoglobin A1C 6.6 (H) <=5.6 % [facility] Comment: [facility] Normal*: <=5.6% Pre Diabetes* Risk: 5.7-6.4% Diabetes* Risk: >=6.5% Glycemic Goals for Adult Diabetes*: <7.0% *(Adult Ranges)[place] [employer] Association, Standards of Medical Care in Diabetes, 2018 Specimen Blood Performing Organization Address [facility] Phone Number [facility] [address] [place] [address] RAINBOW DRAW LAVENDER TOP (07/09/2019 11:49 AM EDT) Specimen Blood Performing Organization Address [facility] [place] Phone Number [facility] [address] [place] [address] PROTHROMBIN TIME (07/09/2019 11:49 AM EDT) INR 1.25 (H) 0.79 - 1.15 [facility] Comment: Ratio [facility] INR Therapeutic Range: 2.0 - 3.5 Protime 15.4 (H) 11.4 - 14.3 sec [facility] Specimen Blood Performing Organization Address [facility] [place] Phone Number [facility] [address] [place] [address] PARTIAL THROMBOPLASTIN TIME (07/09/2019 4:37 AM EDT) PTT 76.4 (H) 22.8 - 34.7 SEC [facility] Specimen Blood Performing Organization Address [facility] [place] Phone Number [facility] [address] [place] [address] MAGNESIUM LEVEL (07/09/2019 4:37 AM EDT) Magnesium 1.9 1.6 - 2.3 MG/DL [facility] Specimen Blood Performing Organization Address [facility] [place] Phone Number [facility] [address] [place] [address] COMPREHENSIVE METABOLIC PANEL (07/09/2019 4:37 AM EDT) Sodium 139 134 - 145 mmol/L [facility] Potassium 4.2 3.5 - 5.1 mmol/L [facility] Chloride 107 98 - 107 mmol/L [facility] CO2 24 22 - 30 mmol/L [facility] Calcium 9.3 8.3 - 10.1 mg/dl [facility] Albumin 3.6 3.5 - 5.0 g/dl [facility] BUN 18 9 - 20 mg/dl [facility] Creatinine 1.0 0.8 - 1.5 mg/dl [facility] Glucose 85 70 - 99 mg/dl [facility] Total Protein 6.9 6.3 - 8.2 g/dl [facility] Total Bilirubin 0.6 0.0 - 1.1 MG/DL [facility] AST 37 17 - 59 U/L [facility] ALT 27 21 - 72 U/L [facility] Alkaline 60 40 - 150 U/L [facility] eGFR >60 See Interpretation [facility] Comment: Below ml/min/1.73ml [facility] Estimated GFR Interpretation: Above 60ml/min/1.73m2 = Normal Renal Function 30-59 ml/min/1.73m2 = Stage 3 Chronic Kidney Disease 15-29 ml/min/1.73m2 = Stage 4 Chronic Kidney Disease Less than 15 ml/min/1.73m2 = Stage 5 Chronic Kidney Disease The GFR value is calculated using the Modification of Diet in Renal Disease ( MDRD) Study Equation which can be found at: https://www.kidney.org/content/angk-oxfyp-kqrpnzqh BUN/Creatinine 18 6 - 22 RATIO [facility] Anion Gap 8 3 - 11 mmol/L [facility] A/G Ratio 1.1 0.8 - 2.0 ratio [facility] Specimen Blood Performing Organization Address City/State/Zipcode Phone Number [facility] [address] [facility] [place] [address] CBC WITH DIFFERENTIAL (07/09/2019 4:37 AM EDT) WBC Count 9.05 4.23 - 9.07 K/uL [facility] RBC Count 3.70 (L) 4.30 - 5.89 M/UL [facility] Hemoglobin 12.3 (L) 13.7 - 17.5 g/dL [facility] Hematocrit 37.0 (L) 40.1 - 51.0 % [facility] MCV 100.0 (H) 79.0 - 92.2 FL [facility] MCH 33.2 (H) 25.7 - 32.2 PG [facility] MCHC 33.2 32.3 - 36.5 g/dL [facility] Platelet Count 164 163 - 337 K/uL [facility] MPV 9.3 (L) 9.4 - 12.4 FL [facility] RDW 13.0 11.6 - 14.4 % [facility] Neutrophil % 56.1 34.0 - 67.9 % [facility] Lymphocyte % 34.0 21.8 - 53.1 % [facility] Monocyte % 7.8 5.3 - 12.2 % [facility] Eosinophil % 1.2 0.8 - 7.0 % [facility] Basophil % 0.6 0.2 - 1.2 % [facility] nRBC % 0.0 0.0 - 0.2 % [facility] Neutrophil # 5.07 1.78 - 5.38 K/UL [facility] Lymphocyte # 3.08 1.32 - 3.57 K/UL [facility] Monocyte # 0.71 0.30 - 0.82 K/UL [facility] Eosinophil # 0.11 0.04 - 0.54 K/UL [facility] Basophil # 0.05 0.01 - 0.08 K/UL [facility] Immature Gran % 0.3 0.0 - 0.4 % [facility] Immature Gran # 0.03 0.00 - 0.03 K/uL [facility] NRBC # 0.00 0.00 - 0.12 K/uL [facility] Specimen Blood Performing Organization Address City/State/[facility] Phone Number [facility] [address] [place] [address] HEPATITIS C ANTIBODY (07/09/2019 4:37 AM EDT) Hepatitis C Ab 0.02 <1.00 S/C [facility] Specimen Blood Narrative Performed At [facility] Test Result [facility] Conclusion From Testing Algorithm <1.00 Negative >=1.00 Reactive Note For Reactive Results: A positive test result by this screening method does not confirm the presence of Hepatitis C antibodies. Confirmation by Hepatitis C Virus RNA PCR ([employer]) is required. Due to stability issues, a new specimen must be obtained for Hepatitis C Virus RNA PCR testing. Performing Organization Address [facility] [place] Phone Number [facility] [address] [place] [address] PARTIAL THROMBOPLASTIN TIME (07/09/2019 2:52 AM EDT) PTT 71.5 (H) 22.8 - 34.7 SEC [facility] Specimen Blood Performing Organization Address [facility] [place] Phone Number [facility] [address] [facility] [place] [address] TROPONIN (07/09/2019 2:52 AM EDT) Troponin 3.820 (HH) 0.000 - 0.034 [place] [employer] Comment: ng/ml [facility] Negative less than or equal to 0.034 ng/ml Indeterminate 0.0351 - 0.119 ng/ml (Suggest Repeat in 4 Hours) Critical (AMI Cutoff) greater than or equal to 0.120 ng/ml Specimen Blood Performing Organization Address [facility] Phone Number [facility] [address] [place] [address] TROPONIN (07/08/2019 10:00 PM EDT) Troponin 4.610 (HH) 0.000 - 0.034 [place] [employer] Comment: ng/ml [facility] Negative less than or equal to 0.034 ng/ml Indeterminate 0.0351 - 0.119 ng/ml (Suggest Repeat in 4 Hours) Critical (AMI Cutoff) greater than or equal to 0.120 ng/ml Specimen Blood Performing Organization Address [facility] Phone Number [facility] [address] [place] [address] [phone] MAGNESIUM LEVEL (07/08/2019 8:40 PM EDT) Magnesium 1.9 1.6 - 2.3 MG/DL [facility] Specimen Blood Performing Organization Address [facility] [place] Phone Number [facility] [address] [place] [address] [phone] PARTIAL THROMBOPLASTIN TIME (07/08/2019 7:29 PM EDT) PTT 34.6 22.8 - 34.7 SEC [facility] Specimen Blood Performing Organization Address [facility] [place] Phone Number [facility] [address] [place] [address] NT PROBNP (07/08/2019 7:29 PM EDT) NT PRO BNP 6,200 (H) <125 pg/ml [facility] Comment: [facility] Recommended cut points for the diagnostic evaluation of heart failure patients with acute dyspnea* Ages (years) Optimal [place] (pg/ml) <50 450 50-75 900 >75 1800 *The [place] Journal of Cardiology NTproBNP results should be interpreted in the context of the overall picture. Serum concentrations of natriuretic peptides may be elevated in patients with acute myocardial infarction and renal insuffic iency. Certain drugs may alter results. Heterophilic antibodies are known to cause interference with immunoassays. Results which are inconsistent with clinical observation indicate a need for additional testing. NTproBNP testing performed on [employer]. Results will not correlate with other methodologies. Specimen Blood Performing Organization Address [facility] Phone Number [facility] [address] [place] [address] TROPONIN (07/08/2019 7:29 PM EDT) Troponin 4.580 (HH) 0.000 - 0.034 [facility] Comment: ng/ml [facility] Negative less than or equal to 0.034 ng/ml Indeterminate 0.0351 - 0.119 ng/ml (Suggest Repeat in 4 Hours) Critical (AMI Cutoff) greater than or equal to 0.120 ng/ml Specimen Blood Performing Organization Address [facility] Phone Number [facility] [address] [place] [address] PROTHROMBIN TIME (07/08/2019 7:29 PM EDT) INR 1.22 (H) 0.79 - 1.15 [place] [employer] Comment: Ratio [facility] INR Therapeutic Range: 2.0 - 3.5 Protime 15.2 (H) 11.4 - 14.3 sec [facility] Specimen Blood Performing Organization Address [facility] Phone Number [facility] [address] [place] [address] COMPREHENSIVE METABOLIC PANEL W/REFLEX MAGNESIUM (07/08/2019 7:29 PM EDT) Sodium 138 134 - 145 mmol/L [facility] Potassium 4.5 3.5 - 5.1 mmol/L [facility] Chloride 108 (H) 98 - 107 mmol/L [facility] CO2 22 22 - 30 mmol/L [facility] Calcium 9.1 8.3 - 10.1 mg/dl [facility] Albumin 3.7 3.5 - 5.0 g/dl [facility] BUN 17 9 - 20 mg/dl [facility] Creatinine 0.9 0.8 - 1.5 mg/dl [facility] Glucose 88 70 - 99 mg/dl [facility] Total Protein 7.1 6.3 - 8.2 g/dl [facility] Total Bilirubin 0.7 0.0 - 1.1 MG/DL [facility] AST 41 17 - 59 U/L [facility] ALT 26 21 - 72 U/L [facility] Alkaline 48 40 - 150 U/L [facility] Phosphatase [facility] eGFR >60 See Interpretation [place] [employer] Comment: Below ml/min/1.73ml GROUP [facility] LAB[facility]AT[facility] Estimated GFR Interpretation: Above 60ml/min/1.73m2 = Normal Renal Function 30-59 ml/min/1.73m2 = Stage 3 Chronic Kidney Disease 15-29 ml/min/1.73m2 = Stage 4 Chronic Kidney Disease Less than 15 ml/min/1.73m2 = Stage 5 Chronic Kidney Disease The GFR value is calculated using the Modification of Diet in Renal Disease ( MDRD) Study Equation which can be found at: https://www.kidney.org/content/cqfk-prrom-popggljp BUN/Creatinine 19 6 - 22 RATIO [facility]ORATORY Anion Gap 8 3 - 11 mmol/L [facility] A/G Ratio 1.1 0.8 - 2.0 ratio [facility] Specimen Blood Performing Organization Address City/State/Zipcode Phone Number [facility] [address] [facility] [place] [address] CBC WITH DIFFERENTIAL (07/08/2019 7:29 PM EDT) WBC Count 10.60 (H) 4.23 - 9.07 K/uL [facility] RBC Count 3.77 (L) 4.30 - 5.89 M/UL [facility] Hemoglobin 12.5 (L) 13.7 - 17.5 g/dL [facility] Hematocrit 37.2 (L) 40.1 - 51.0 % [facility] MCV 98.7 (H) 79.0 - 92.2 FL [facility] MCH 33.2 (H) 25.7 - 32.2 PG [facility] MCHC 33.6 32.3 - 36.5 g/dL [facility] Platelet Count 170 163 - 337 K/uL [facility] MPV 9.3 (L) 9.4 - 12.4 FL [facility] RDW 13.1 11.6 - 14.4 % [facility] Neutrophil % 63.6 34.0 - 67.9 % [facility] Lymphocyte % 27.2 21.8 - 53.1 % [facility] Monocyte % 7.7 5.3 - 12.2 % [facility] Eosinophil % 0.7 (L) 0.8 - 7.0 % [facility] Basophil % 0.5 0.2 - 1.2 % [facility] nRBC % 0.0 0.0 - 0.2 % [facility] Neutrophil # 6.75 (H) 1.78 - 5.38 K/UL [facility] Lymphocyte # 2.88 1.32 - 3.57 K/UL [facility] Monocyte # 0.82 0.30 - 0.82 K/UL [facility] Eosinophil # 0.07 0.04 - 0.54 K/UL [facility] Basophil # 0.05 0.01 - 0.08 K/UL [facility] Immature Gran % 0.3 0.0 - 0.4 % [facility] Immature Gran # 0.03 0.00 - 0.03 K/uL [facility] NRBC # 0.00 0.00 - 0.12 K/uL [facility] Specimen Blood Performing Organization Address City/State/Zipcode Phone Number [facility] [address] [place] [phone] documented in this encounter Visit Diagnoses Diagnosis NSTEMI (non-ST elevated myocardial infarction) ([facility]) - Primary Acute myocardial infarction, subendocardial infarction, episode of care unspecified Tobacco use disorder Type 2 diabetes mellitus without complication, with long-term current use of insulin ([facility]) Cardiomyopathy, ischemic Other specified forms of chronic ischemic heart disease Essential hypertension, benign Atrial fibrillation, chronic (HCC) Atrial fibrillation Mixed hyperlipidemia Peripheral vascular disease, unspecified ([facility]) Peripheral vascular disease, unspecified Coronary artery disease Coronary atherosclerosis of unspecified type of vessel, [place] or graft Chronic systolic heart failure (HCC) Chronic systolic heart failure Left ventricular thrombus Acute myocardial infarction, unspecified site, episode of care unspecified documented in this encounter Administered Medications Medication Order MAR Action Action Date Dose Rate Site aspirin (ECOTRIN) enteric coated Given 07/11/2019 8:27 AM EDT 81 mg tablet 81 mg 81 mg, Oral, DAILY, First dose on Sun07/09/19 at 0900, Until Discontinued Given 07/10/2019 9:52 AM EDT 81 mg Given 07/09/2019 8:07 AM EDT 81 mg atorvastatin (LIPITOR) tablet 40 mg Given 07/08/2019 9:05 PM EDT 40 mg 40 mg, Oral, QHS, First dose on Sun07/08/19 at 2100, Until Discontinued atorvastatin (LIPITOR) tablet 80 mg Given 07/10/2019 10:02 PM EDT 80 mg 80 mg, Oral, QHS, First dose on Sun07/09/19 at 2100, Until Discontinued Given 07/09/2019 8:33 PM EDT 80 mg carvedilol (COREG) tablet 12.5 mg Given 07/11/2019 8:27 AM EDT 12.5 mg 12.5 mg, Oral, BID, First dose on Sun07/08/19 at 2100, Until Discontinued Given 07/10/2019 10:02 PM EDT 12.5 mg Given 07/10/2019 9:52 AM EDT 12.5 mg clopidogrel (PLAVIX) tablet 75 mg Given 07/08/2019 9:06 PM EDT 75 mg 75 mg, Oral, DAILY, First dose on Sun07/08/19 at 2000, Until Discontinued clopidogrel (PLAVIX) tablet 75 mg Given 07/11/2019 11:21 AM EDT 75 mg 75 mg, Oral, DAILY, First dose on Sun07/11/19 at 1010, Until Discontinued dextrose injection 50 % New Bag 07/11/2019 1:05 AM EDT 25 g 25 g, Intravenous, PRN, Starting Sun07/09/19 at 1425, Until Sun07/11/19 at 1920, blood glucose < ___, <70 and patient NPO or not alert diphenhydrAMINE (BENADRYL) capsule 50 mg Given 07/09/2019 10:06 AM EDT 50 mg 50 mg, Oral, GIVE HAND TOUCH UP PAINTER TO PROCEDURE, 1 dose, First dose on Sun07/09/19 at 0600, 2 Day of Surgery Pre Procedure GLARGINE insulin Given 07/11/2019 9:22 AM EDT 10 Units Arm - Upper Left (LONG-Acting) injection 10 Units 10 Units, Subcutaneous, QAM, First dose on Sun07/11/19 at 0900, Until Discontinued GLARGINE insulin Given 07/10/2019 9:54 AM EDT 15 Units Abdominal Tissue (LONG-Acting) injection 15 Units 15 Units, Subcutaneous, QAM, First dose on Sun07/09/19 at 0900, Until Discontinued Given 07/09/2019 8:08 AM EDT 15 Units Abdominal Tissue glucose (GLUTOSE) oral gel 40 % 1-2 Tube, Oral, PRN, Starting Sun07/09/19 at 1425, Until Sun07/11/19 at 1920, blood glucose < ___, Administer for Blood Glucose < 50 and patient eating and alert per hypoglycemia protocol heparin in dextrose 5% IV New Bag 07/09/2019 11:57 PM EDT 1,000 Units/hr 10 mL/hr premix 100 units/mL 1,000 Units/hr (10 mL/hr), Intravenous, at 10 mL/hr, TITRATE, Starting Sun07/08/19 at 2000, Until Carie 07/10/19 at 2056 Rate Verify 07/09/2019 8:41 PM EDT 1,000 Units/hr 10 mL/hr New Bag 07/08/2019 8:57 PM EDT 1,000 Units/hr 10 mL/hr heparin in dextrose 5% IV Rate Verify 07/11/2019 7:30 AM 1,000 Units/hr 10 mL/hr premix 100 units/mL EDT 960 Units/hr (9.6 mL/hr), Intravenous, at 9.6 mL/hr, TITRATE, Starting Sun07/11/19 at 0140, Until Sun07/11/19 at 1920 New Bag 07/11/2019 12:49 AM EDT 1,000 Units/hr 10 mL/hr heparin injection [id number] UNIT/ML 1,000 Units, Intravenous Push, Q6 HRS PRN, Starting Sun07/11/19 at 0034, Until Sun07/11/19 at 1920, PTT < 50 - Give 1000 unit bolus IV and increase infusion by 200 units/hour HOLD MEDICATION Given 07/11/2019 7:00 AM EDT Does not apply, AC, First dose on Sun07/09/19 at 1600, Until Discontinued LISPRO insulin (RAPID-Acting) SENSITIVE Correction Scale Inj Subcutaneous, AC/HS, First dose on Sun07/11/19 at 1100, Until Discontinued LISPRO insulin (RAPID-Acting) Given 07/11/2019 8:23 AM 2 Units Arm - Upper Right USUAL Correction Scale Inj EDT Subcutaneous, AC/HS, First dose on Sun07/09/19 at 1600, Until Discontinued Given 07/10/2019 10:02 PM EDT 8 Units Arm-Right Given 07/10/2019 3:24 PM EDT 2 Units Abdominal Tissue magnesium sulfate IV premix 1 g New Bag 07/09/2019 7:40 AM EDT 1 g 1 g, Intravenous, Q1 HR, 1 dose, First dose on Sun07/09/19 at 0700 nitroglycerin (NITROSTAT) sublingual tablet (1/150) 0.4 mg 0.4 mg, Sublingual, Q5 MIN PRN, 3 doses, Starting Sun07/09/19 at 1243, Until Sun07/11/19 at 1920, chest pain normal saline IV New Bag 07/09/2019 5:49 AM EDT 100 mL/hr Intravenous, at 100 mL/hr, CONTINUOUS, Starting Sun07/09/19 at 0110, Until Sun07/09/19 at 1120, 2 Day of Surgery Pre Procedure ramipril (ALTACE) capsule 5 mg Given 07/08/2019 9:05 PM EDT 5 mg 5 mg, Oral, DAILY, First dose on Sun07/08/19 at 2000, Until Discontinued ramipril (ALTACE) capsule 5 mg Given 07/11/2019 8:27 AM EDT 5 mg 5 mg, Oral, DAILY, First dose on Sun07/10/19 at 0900, Until Discontinued Given 07/10/2019 9:52 AM EDT 5 mg rivaroxaban (XARELTO) tablet 20 mg Given 07/11/2019 3:32 PM EDT 20 mg 20 mg, Oral, DAILY, 30 doses, First dose on Sun07/11/19 at 1420, Last dose on Sun08/09/19 at 0900 spironolactone (ALDACTONE) tablet Given 07/08/2019 9:06 PM EDT 12.5 mg (1/2X25mg) 12.5 mg 12.5 mg, Oral, DAILY, First dose on Sun07/08/19 at 2000, Until Discontinued spironolactone (ALDACTONE) tablet Given 07/11/2019 8:27 AM EDT 12.5 mg (1/2X25mg) 12.5 mg 12.5 mg, Oral, DAILY, First dose on Sun07/10/19 at 0900, Until Discontinued Given 07/10/2019 9:52 AM EDT 12.5 mg tramadol (ULTRAM) tablet 50 mg Given 07/08/2019 10:24 PM EDT 50 mg 50 mg, Oral, Q1 HR, 1 dose, First dose on Sun07/08/19 at 2220 tramadol (ULTRAM) tablet 50 mg Given 07/09/2019 8:30 PM EDT 50 mg 50 mg, Oral, X1, 1 dose, First dose on Sun07/09/19 at 0430 tramadol (ULTRAM) tablet 50 mg Given 07/10/2019 11:12 PM EDT 50 mg 50 mg, Oral, Q8 HRS PRN, Starting Carie 07/10/19 at 2302, Until Sun07/11/19 at 1920, Moderate Pain (pain scale 4-6)PO 2nd line - if immediate effect not required & can tolerate PO and still has moderate pain 4 hrs after admin of 1st line agent or did not tolerate 1st line agent, for the leg pain warfarin patient Acknowledged HOLD order 07/11/2019 2:00 PM EDT 0 Does not apply, DAILY 1400, First dose on Sun07/09/19 at 1400, Until Discontinued documented in this encounter Insurance Payer Benefit Plan / Subscriber ID Effective Dates Phone Address Type Group [employer]CIAL [employer] [place] xxxxxxxxxx 2012-Present [employer] MED[employer]ARE MEDICARE PART A xxxxxxxxxxx 2012-Present Medicare & B Guarantor Name Account Type Relation to Date of Phone Billing Address Patient Chris Bahena Personal/Family 1960 [facility] [place] (Home) [place], [place] [phone] [id number] (Work) documented as of this encounter Advance Directives Code Status Date Activated Date Inactivated Comments Full Code 07/08/2019 7:51 PM Does the patient have decision making capacity? Yes Order was discussed with: Patient I discussed all options and patient/surrogate requested and agreed to: Full Code
--- OUTSIDE RECORDS SUMMARY | 2019-08-22 17:17 | XMS REPORT | Continuity of Care Document ---
:1960 External Reference #:[id number] Author Name Hina Dawson M.D. (transmitted by agent of provider Sandra Loving) Address [address] [place] [phone] Problems Description No Information Available Social History Type Date Description Comments Sex Unknown Allergies, Adverse Reactions, Alerts Description No Information Available Medications Description No Information Available Immunizations Description No Information Available Vital Signs Description No Information Available Results Description No Information Available Procedures Description No Information Available Medical Devices Description No Information Available Encounters Description No Information Available Assessments Description No Information Available Plan of Treatment No Information Available Functional Status Description No Information Available Mental Status Description No Information Available Referrals Description No Information Available
--- OUTSIDE RECORDS SUMMARY | 2019-08-22 17:17 | XMS REPORT | Summary of Care ---
:1960 Author Organization [facility] Address [address] [place] [address] Care Team Providers Name Role Phone Griffin Yuan Primary Care Provider Cathi Santillan Chronic Disease Nurse Educator Unavailable Sylwia Srinivasan RN Unavailable Reason for Visit Reason Comments Transitional Care Management pt states Bacteremia NSTEMI ([facility] 07/08/19- ). pt states he is feeling good today Encounter Details Date Type Department Care Team Description 07/17/2019 Office Visit [place] Internal Griffin Yuan, Tobacco use disorder (Primary Dx); Medicine MD Type 2 diabetes mellitus without complication, with long-term current use of insulin ([facility]); [address] Coronary artery disease involving poarch coronary artery of poarch heart without angina pectoris; [place] [address] Cardiomyopathy, ischemic; [phone] Atrial fibrillation, chronic ([facility]); NSTEMI (non-ST elevated myocardial infarction) ([facility]); Chronic systolic heart failure ([facility]) Allergies Active Allergy Reactions Severity Noted Date Comments Penicillins Hives 05/25/2004 Shell Fish Anaphylaxis 05/25/2004 Tape: Silk Or Adhesive Dermatologic Reaction 07/09/2015 Paper tape documented as of this encounter (statuses as of 07/17/2019) Medications Medication Sig Dispensed Refills Start End Date Status Date Pen Bethel 31G X 1 Package by 1 Each 5 04/20/201 Active 8 MM Does not Does not [...] Max Daily Amount: 300 mg. ramipril (ALTACE) Take 1 Cap by 90 Cap 3 Active 5 MG Oral Cap mouth DAILY. 9 carvedilol (COREG) Take 1 Tab by 60 Tab 0 Active 12.5 MG Oral mouth TWICE 9 TabIndications: DAILY. Benign hypertension atorvastatin Take 1 Tab by 30 Tab 11 Active (LIPITOR) 80 MG mouth DAILY. 9 Oral Tab Dose is increased from 40 mg daily to 80 mg daily rivaroxaban Take 1 Tab by 30 Tab 0 Active (XARELTO) 20 MG mouth DAILY. 9 Oral Tab Clindamycin HCl TAKE 1 CAPSULE 0 Active 300 MG Oral Cap BY MOUTH THREE 9 TIMES A DAY Insulin Glargine Inject 18 Units 15 mL 3 Active (LANTUS SOLOSTAR) beneath the skin 9 100 UNIT/ML DAILY. Subcutaneous Solution Pen-injectorIndica tions: Type 2 diabetes mellitus without complication, with long-term current use of insulin ([facility]) Insulin Glargine Inject 15 Units 15 mL 3 07/17/20 Discontinued (LANTUS SOLOSTAR) beneath the skin 9 19 (Dose 100 UNIT/ML DAILY. Adjustment) Subcutaneous Solution Pen-injectorIndica tions: Type 2 diabetes mellitus without complication, with long-term current use of insulin ([facility]) rivaroxaban Take 1 Tab by 30 Tab 11 07/17/20 Discontinued (XARELTO) 20 MG mouth DAILY. 9 19 Oral Tab Xarelto for atrial fibrillation.Con tinue Plavix for coronary artery disease with stents. documented as of this encounter (statuses as of 07/17/2019) Active Problems Problem Noted Date NSTEMI (non-ST elevated myocardial infarction) 07/09/2019 Overview: Presented to OSH after episode of chest pain. Troponin barrie to peak of 7 which prompted transfer to [facility]. EKG with no ischemic changes. 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 current use of anticoagulant therapy 02/09/2010 Overview: Managed by [facility] Referring Provider: Arabella Indication: Afib Target Range: 2.0-3.0 Duration: Indefinite Additional factors influencing anticoagulation: CHADS2 score of 3 for LV dysfunction, diabetes, hypertension [id number] score of 4 for LV dysfunction, diabetes, hypertension, vascular disease Clopidogrel significantly increases bleeding risk Spironolactone decreases warfarin effect Updated Referral: 04/2018, 05/28/19 Updated ACS Orders: 04/29/18, 06/09/19 Tubular adenoma 02/08/2010 Overview: Colonoscopy/polypectomy 01/29 Dr Adames Cardiomyopathy, ischemic 11/01/2009 Overview: Known S/P ICD (internal cardiac defibrillator) procedure 08/26/2009 Overview: 08/19/09: Biventricular pacemaker placement [facility] DEFIBRILLATOR GENERATOR IMPLANTED: Promote Plus, model [id number], serial number [id number]. RIGHT ATRIAL LEAD: Model 1888, serial number [id number]. LEFT VENTRICULAR LEAD: Model 1158T, serial number [id number]. RIGHT VENTRICULAR LEAD/COIL: Model 7121, serial number [id number]. 02/29/12: Arrhythmia Center Report There have been [...] as of this encounter (statuses as of 07/17/2019) Resolved Problems Problem Noted Date Resolved Date [...] biventricular pacemaker and ICD placement Dr Chavez [facility] 07/30 Calcifying tendinitis of shoulder 02/06/2008 05/09/2013 documented as of this encounter (statuses as of 07/17/2019) Immunizations Name Administration Dates Next Due Influenza [...] Sign Reading Time Taken Comments Blood Pressure 100/78 07/17/2019 1:07 PM EDT Pulse 118 07/17/2019 1:07 PM EDT Temperature 36.6 07/17/2019 1:07 PM EDT C (97.9 F) Respiratory Rate - - Oxygen Saturation 99% 07/17/2019 1:07 PM EDT Inhaled Oxygen Concentration - - Weight 78.9 kg (174 lb) 07/17/2019 1:07 PM EDT Height 170.2 cm (5' 7") 07/17/2019 1:07 PM EDT Body Mass Index 27.25 07/17/2019 1:07 PM EDT documented in this encounter Patient Instructions Patient InstructionsGriffin Yuan MD - 07[facility]17[facility]2019 [facility] reasonable thought for second opinion on coronary artery disease and heart surgery continue current medications congrats on quitting smoking Diabetes mellitus blood test 3 months documented in this encounter Progress Notes Griffin Yuan MD - 07/17/2019 1:00 PM EDT TCM Statement. Review of the hospitalization: I am seeing for transition of care following hospitalization. Discharge date: 07/11/2019 Principal Diagnosis: NSTEMI Procedures: Left heart catheterization Other medical problems managed in the hospital: Coronary artery disease (remote PCI's) Chronic systolic heart failure/LVEF 25 to 30% Paroxysmal atrial fibrillation Hypertension Peripheral arterial disease Calcified apical thrombus AICD/PPM Tobacco dependence Hospital Course: Mr. Conte is a 58 year old male [facility]. He has history of coronary artery disease with remote PCI's. He ruledin for [place]. He was transferred to [facility] for evaluation. Please refer to the history and physical for full details. NSTEMI: He had a peak Troponin of 4.580. Echocardiogram from [place] showed LVEF of 25 to 30% (previously [...] He will continue his usual home medications. I reviewed the discharge summary, discharge instructions, and pertinent additional documentation obtained during hospitalization. I reconciled the medications. I also reviewed the Transition of Care documentation done by staff. The tests that were not available at the time of discharge were reviewed. Additional tests which are not yet available include: None He was placed on xarelto and warfarin was stopped Statin dose was increased He denies chest pain or shortness of breath He quit smoking on jul 07 he is managing the cravings his Shirin is quitting today Patient Active Problem List Diagnosis Tobacco use disorder Type 2 diabetes mellitus without complication, with long-term current use of insulin ([facility]) Obesity, unspecified Coronary artery disease Background diabetic retinopathy ([facility]) Mixed hyperlipidemia Rotator cuff tear Essential hypertension, benign S/P ICD (internal cardiac defibrillator) procedure Cardiomyopathy, ischemic Tubular adenoma [facility] current use of anticoagulant therapy Atherosclerosis of leg with intermittent claudication ([facility]) Peripheral vascular disease, unspecified ([facility]) Panlobular emphysema ([facility]) Atrial fibrillation, chronic ([facility]) 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 atorvastatin (LIPITOR) 80 MG Oral Tab Take 1 Tab by mouth DAILY. Dose is increased from 40 mgdaily to 80 mg daily 30 Tab 11 Blood Glucose Monitor Software Does not apply Device 1 Each by Does not apply route DIRECTED. uncontrolled insulin dependent diabetes. Brand: insurance preferred Dx: E11.9 1 Device 0 Blood Glucose Monitoring Suppl (BLOOD GLUCOSE TEST STRIPS STRP) 1. Brand : per meter type 2. Dx:Diabetes 3. Insulin dependent 4. Test Blood Glucose 3 time(s) A DAY 100 Strip 5 carvedilol (COREG) 12.5 MG Oral Tab Take 1 Tab by mouth TWICE DAILY. 60 Tab 0 clopidogrel (PLAVIX) 75 MG Oral Tab Take 1 Tab by mouth DAILY. 90 Tab 3 Glucose Blood In Vitro Strip 100 Strips by In Vitro route THREE TIMES DAILY. uncontrolled insulin dependent diabetes Dx E11.9 100 Strip 5 Insulin Glargine (LANTUS SOLOSTAR) 100 UNIT/ML Subcutaneous Solution Pen- injector Inject 15 Units beneath the skin DAILY. 15 mL 3 Lancets Does not apply Misc by Does not apply route. Brand:insurance prefferred Dx: E11.9 Insulin dependent Test Blood Glucose 3 time(s) A DAY 100 Each 5 loperamide (IMODIUM) 2 MG Oral Cap TAKE 2 CAPSULES BY MOUTH EVERY MORNING AND EVENING 120 Cap3 Pen Bethel 31G X 8 MM Does not apply Misc 1 Package by Does not apply route TWO TIMES DAILYBEFORE MEALS. humalog pen needles 1 Each 5 ramipril (ALTACE) 5 MG Oral Cap Take 1 Cap by mouth DAILY. 90 Cap 3 rivaroxaban (XARELTO) 20 MG Oral Tab Take 1 Tab by mouth DAILY. 30 Tab 0 spironolactone (ALDACTONE) 25 MG Oral Tab Take 0.5 Tabs by mouth DAILY. 45 Tab 3 tramadol (ULTRAM) 50 MG Oral Tab Take 1-2 Tabs by mouth EVERY EIGHT HOURS NEEDED (pain). Max Daily Amount: 300 mg. 120 Tab 5 ROS no new diabetes mellitus related symptoms finger stick runs 120-140 Physical Exam BP 100/78 (BP Location: Right arm, Patient Position: Sitting) Pulse 118 Temp 97.9 F (36.6 C) Ht 5' 7" (1.702 m) Wt 174 lb (78.9 kg ) SpO2 99% BMI 27.25 kg/m2 S1 and S2 normal, no murmurs, clicks, gallops or rubs. Regular rate and rhythm. Chest is clear; no wheezes or rales. No edema or JVD. Left foot diabetic exam: Visual exam. Foot appears normal without wounds or signs of infection: yes Sensory exam. Patient can feel the monofilament on the foot: No Pulse exam. A pulse is palpable at either the foot or ankle: yes Right foot diabetic exam: Visual exam. Foot appears normal without wounds or signs of infection: yes Sensory exam. Patient can feel the monofilament on the foot: No Pulse exam. A pulse is palpable at either the foot or ankle: yes ICD-9-CM ICD-10-CM 1. Tobacco use disorder he is congratulated on quitting smoking 305.1 F17.200 2. Type 2 diabetes mellitus without complication, with long-term current use of insulin ([facility]) stableat goal continue current medications hemoglobin A1C 3 months 250.00 E11.9 Insulin Glargine (LANTUS SOLOSTAR) 100 UNIT/ML Subcutaneous Solution Pen-injector V58.67 Z79.4 3. Coronary artery disease involving poarch coronary artery of poarch heart without angina pectoris 414.01 I25.10 4. Cardiomyopathy, ischemic 414.8 I25.5 5. Atrial fibrillation, chronic ([facility]) 427.31 I48.2 6. NSTEMI (non-ST elevated myocardial infarction) ([facility]) 410.70 I21.4 7. Chronic systolic heart failure (HCC) continue current medications 428.22 I50.22 Coordination of care. - I am satisfied that appropriate referrals are in place to deal with the problems identified during hospitalization, and that the patient has adequate community resources and support in place. I confirmed the patient's understanding of the diagnosis and plan of care. Specific education that was provided today: Patient Instructions [facility] is a reasonable thought for second opinion on coronary artery disease and heart surgery continue current medications congrats on quitting smoking Diabetes mellitus blood test 3 months The current and discharge medications were reconciled by me, today The source document was hospital discharge summary Griffin Yuan MDElectronically signed by Griffin Yuan MD at 2018 1:29 PM EDTdocumented in this encounter Plan of Treatment Date Type Specialty Care Team Description 07/21/2019 Nurse/Clinical Support Internal Medicine 07/23/2019 Lab Internal Medicine 07/30/2019 Office Visit Cardiology Maria Del Carmen Elliott CRNP [address] [place] [address] [phone] 08/05/2019 [facility] Arrhythmia [place] 08/07/2019 Office Visit Family Practice Katie Razo, SCIENTIFIC WRITER [address] [id number] 11/04/2019 Office Visit Vascular Surgery Odalis Randhawa MD [address] [address] [phone] 12/09/2019 [facility] Arrhythmia [place] Health Maintenance Due Date Last Done Comments [...] Problems Progress Blood Pressure Blood Pressure Essential 100/78 No [place], < 140/90 hypertension, (07/17/2019 Griffin Gray, benign 1:07 PM EDT) Note: Hypertension Care Plan Based [...] Educational Resources: National Heart, Lung, & Blood [place] http://nhlbi.nih.gov/hbp/index.html The DASH Diet Eating Plan http://www.nhlbi.nih.gov/health/health-topics/ topics/dash/ Academy of Nutrition & DIetetics http://eatright.org National Smoking Cessation Site http://smokefree.gov Blood Pressure < Blood Pressure 100/78 (07/17/2019 Katie Kitchen FNP 140/90 1:07 PM EDT) Note: This is an individualized treatment (blood pressure) goal for Chris Conte: Displayed above (on the left) is your goal for blood pressure control. Your most recent blood pressure is also shown above, on the right. You should try to achieve blood pressures that are lower than your goal listed above (on the left). Weight increase vs. 18 mo CHF 14 (07/17/2019 1:07 PM EDT) Katie Kitchen FNP min (lbs) < [...] A1c < 7.0 Diabetes 6.6 (07/09/2019 11:49 No Katie Razo FNP AM EDT) Note: This is an individualized treatment (diabetes control, HgbA1C) goal for Chris Conte: Displayed above is your progress towards your HgbA1C goal. Your goal is shown above (on the left); your most recent HgbA1C is shown on the right. Note that lower numbers are better. Keep immunizations current Lifestyle No Katei Razo FNP Note: This is an individualized lifestyle goal for Chris Conte: Please be sure to keep up-to-date on recommended immunizations. For example, this would include a yearly influenza vaccine. Immunization status can be seen by looking at the Health Maintenance sections of your e[employer], Plan of Care, and any After Visit Summaries. Consume a lc-poiws-lvin diet Lifestyle No Katie Razo FNP Note: [...] of this encounter Implants Implanted Type Area Outside Cutter Hand Device Shelf Model / Identifier Expiration Serial / Date Lot 2.5 X 12 Xieine - [id number] Circumflex VALDEZ VASCULAR [id number] / Implanted: Qty: 1 on 10/05/2008 at [facility] [id number] / [id number] 2.5 Taxus Liberte - [id number] [facility] [id number] / Implanted: Qty: 1 on 05/21/2009 at [facility] / [id number] Promote Plus Icd [id number] - [id number] Left: Chest [facility] ZAY 11/21/2010 [id number] / Implanted: Qty: 1 on 08/19/2009 at [facility] MEDICAL/PACESET [id number] / TER Lead Tendril # [id number]-52 - [id number] Left: Chest ST ZAY 05/21/2012 [id number] -52 / Implanted: Qty: 1 on 08/19/2009 at [facility]/PACESET [id number] / TER 7121/65 Durata Lead - [id number] Left: Chest [facility] 02/19/2012 7121/65 / Implanted: Qty: 1 on 08/19/2009 at [facility], [facility]. [id number] / 1158t Quickflex Lead - [id number] Left: Chest [facility] 03/21/2012 1158T / Implanted: Qty: 1 on 08/19/2009 at [facility], [facility]. [id number] / Biotenodesis Screw 8 X 12mm - [id number] Right: Biceps ARTHREX [id number] / Implanted: Qty: 1 on 02/21/2011 at [facility] / [id number] Quartet 1458q-86cm - [id number] N/A: Chest [facility] 03/21/2018 [id number] / Implanted: Qty: 1 on 07/12/2015 by Jack Chavez MD at [facility] [id number] / Tyrx Large Absorbable Antibacterial Envelope - [id number] N/A: Chest [employer] 08/21/2015 [id number] / Implanted: Qty: 1 on 07/12/2015 by Jack Chavez MD at [facility] / [id number] Quadra Assura [id number] - [id number] N/A: Chest [facility] 03/21/2017 [id number] / Implanted: Qty: 1 on 07/12/2015 by Jack Chavez MD at [facility], [facility] [id number] / Optisense Lead - [id number] N/A: Chest [facility] 04/20/2018 / Implanted: Qty: 1 on 07/12/2015 by Jack Chavez MD at [facility], [facility]. [id number] / documented as of this encounter Results Not on filedocumented in this encounter Visit Diagnoses Diagnosis Tobacco use disorder - Primary Type 2 diabetes mellitus without complication, with long-term current use of insulin (HCC) Coronary artery disease involving poarch coronary artery of poarch heart without angina pectoris Cardiomyopathy, ischemic Other specified forms of chronic ischemic heart disease Atrial fibrillation, chronic (HCC) Atrial fibrillation NSTEMI (non-ST elevated myocardial infarction) ([facility]) Acute myocardial infarction, subendocardial infarction, episode of care unspecified Chronic systolic heart failure (HCC) Chronic systolic heart failure documented in this encounter Insurance Payer Benefit Plan / Subscriber ID Effective Dates Phone Address Type Group [employer]CIAL [employer] [place] xxxxxxxxxx 2012-Present [employer] [place] MEDICARE MEDICARE PART A xxxxxxxxxxx 2012-Present Medicare & B Guarantor Name Account Type Relation to Date of Phone Billing Address Patient Chris Shah Personal/Family 1960 [facility] [address] (Home) [place], [place] [phone] [id number] (Work) documented as of this encounter Advance Directives Code Status Date Activated Date Inactivated Comments Full Code 07/08/2019 7:51 PM Does the patient have decision making capacity? Yes Order was discussed with: Patient I discussed all options and patient/surrogate requested and agreed to: Full Code
[2019-08-22] MEDS ORDERED: NS 0.9% 1000 ML** 1,000 ML IV ONE (17:30)
--- NOTE | 2019-08-22 17:31 | ED ---
HPI Cardiac - HPI Summary HPI Summary: Patient is a 58 y/o M presenting to [facility] via EMS in cardiac arrest. ABC alert was paged on overhead 1655, EMS arrived 1700 with provider in room immediately upon arrival. EMS states that the patient had onset of chest pain with SOB about an hour prior to arrival. Patient is reported to have gone to the bathroom , vomited, subsequently collapsed and became unresponsive. called 911. First responders initiated CPR, EMS states that they had given 6 epi and 1 bicarb. 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 Patient had an ICD which had shocked him and returned the patient to rhythm. However, this was lost. EMS state that last shockable rhythm they observed was v-fib. EMS administered 3 rounds of epi during transport. They state that the patient had NH around a month ago. He was evaluated at [facility] and was scheduled to have appointment at the [facility]. Patient is a level 5 caveat due to extremis. - History of Current Complaint Chief Complaint: EDCardiacArrest Stated Complaint: ABC Hx Obtained From: EMS Hx From Patient Unobtainable Due To: Extremis - Patient is a level 5 caveat due to extremis. Onset/Duration: Started Hours Ago, Still Present Timing: Constant, Lasting Hours Current Severity: Severe Pain Intensity: 0 Associated Signs and Symptoms: Positive: Chest Pain, Shortness of Breath, Vomiting, Other: - extremis - Allergy/Home Medications Allergies/Adverse Reactions: Allergies Allergy/AdvReac Type Severity Reaction Status Date / Time Iodinated Contrast Media Allergy Unknown Verified 04/24/19 16:44 [Iodinated Contrast- Oral Reaction and IV Dye] Details Penicillins Allergy Rash And Verified 04/24/19 16:44 Itching shellfish derived Allergy Unknown Verified 04/24/19 16:44 Reaction Details Home Medications: Home Medications Atorvastatin* [Lipitor*] 80 mg PO DAILY 08/22/19 [History Confirmed 08/22/19] Clopidogrel TAB* [Plavix TAB*] 75 mg PO DAILY 08/22/19 [History Confirmed ] Escitalopram * [Lexapro 10 mg (NF)] 10 mg PO DAILY 08/22/19 [History Confirmed 08/22/19] Magnesium Oxide TAB* [MagOx 400 TAB*] 400 mg PO DAILY 08/22/19 [History Confirmed 08/22/19] Rivaroxaban TAB(*) [Xarelto 20 mg] 20 mg PO DAILY 08/22/19 [History Confirmed ] PMH/Surg Hx/FS Hx/Imm Hx Endocrine/Hematology History: Reports: Hx Anticoagulant Therapy, Hx Diabetes - IDDM WITH RETINOPATHY Cardiovascular History: Reports: Hx Angina, Hx Auto Implanted Cardiovert Defib - 2008, Hx Cardiomegaly - CARDIOMYOPATHY, Hx Congestive Heart Failure - EF% 20, CHF STAGE 3, Hx Coronary Artery Disease, Hx Hypercholesterolemia - HLD, Hx Hypertension, Hx Peripheral Vascular Disease - LEG STASIS ULCERS, Other Cardiovascular Problems/Disorders - LV mural thrombus, ARTHEROSCELEROUS Respiratory History: Reports: Hx Sleep Apnea - evaluation for 10/2013, Other Respiratory Problems/Disorders - smoker/TRYING TO QUIT Musculoskeletal History: Reports: Other Musculoskeletal History - (left) leg wound, OBESITY Sensory History: Reports: Hx Contacts or Glasses Denies: Hx Hearing Aid Opthamlomology History: Reports: Hx Contacts or Glasses - Cancer History Cancer Type, 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 ZICO STENT 2007. CARDIAC CATH. PACEMAKER/ICD 2008. S/P RIGHT ROTOR CUFF REPAIR Hx Anesthesia Reactions: No Infectious Disease History: No Infectious Disease History: Reports: Hx of Known/Suspected MRSA - Pt stated he had MRSA in his legs about 6 years ago Denies: Traveled Outside the [place] in Last 30 Days - Family History Known Family History: Positive: Cardiac Disease - Social History Alcohol Use: None Hx Substance Use: No Substance Use Type: Reports: None Hx Tobacco Use: Yes Smoking Status (MU): Heavy Every Day Tobacco Smoker Type: Cigarettes Amount Used/How Often: < 5 CIG/DAY Length of Time of Smoking/Using Tobacco: 35 YRS Have You Smoked in the Last Year: Yes Review of Systems - ROS Summary Review of Systems Summary: Patient is a level 5 caveat due to extremis. Constitutional: Other - extremis Positive: Chest Pain Positive: Shortness Of Breath Positive: Vomiting All Other Systems Reviewed And Are Negative: No - Comments Additional Review of Systems Comments: Patient is a level 5 caveat due to extremis. Physical Exam - Summary Physical Exam Summary: Constitutional: Well-developed, Well-nourished, Unresponsive Skin: Warm, Dry HENT: Normocephalic; Abrasion to left scalp. Eyes: Pupils are fixed and dilated Neck: Musculoskeletal ROM normal neck. (-) JVD, (-) Stridor, (-) Tracheal deviation Cardio: Pulseless Pulmonary/Chest wall: (+) Respiratory distress, (-) Wheezes, (-) Rales Abd: Soft, (-) tenderness, (+) Distension, (-) Guarding, (-) Rebound Musculoskeletal: (-) Edema Lymph: (-) Cervical adenopathy Neuro: Unresponsive Triage Information Reviewed: Yes Vital Signs On Initial Exam: Initial Vitals Temp Pulse Resp BP Pulse Ox 0 F 0 0 000/000 0 08/22/19 17:07 08/22/19 17:07 08/22/19 17:07 08/22/19 17:07 08/22/19 17:07 Vital Signs Reviewed: Yes Completion Of Physical Exam Limited Due To: Extremis, Level 5 Procedures - Sedation Patient Received Moderate/Deep Sedation with Procedure: Yes Are You The Provider Who Administered The Sedation: Yes Name of Provider Whom Sedated Patient: Dony Jose - Procedural Sedation/Analgesia Sedation Course: Emergency Airway Equipment Available, Informed Consent Obtained , End-tidal Capnography Utilized Adverse Reactions Experienced by Patient: None Mallampati Classification: Class III ASA Classification: Class V: Not Expected to Survive With/Without Procedure Pre-Procedural Heart: Other - pulseless Pre-Procedural Heart Comment: s/p arrest Pre-Procedural Lungs: Clear Auscultation Comment/Plan of Care: Emergent consent for the central line. A total of 250 mg of IV ketamine and 2 aliquots. The patient tolerated this well. Provider Procedure Attestation: With My Signature Below, I Attest to have Personally Reviewed and Agree with the Pre-Sedation History and Pre-Service Assessment Update Cleared for Moderate Sedation: Yes Pre-Procedural Diagnosis: cardiac arrest Post-Procedural Diagnosis: cardiac arrest Procedure: 250 mg of IV ketamine provided for central line placement. Estimated Blood Loss: Other - This was in 2 aliquots.10 mL Estimated Blood Loss Comment: 5 ml Specimen(s): None Findings: None Implants/Tubes/Drains Placed: None - Central Line Right Jugular Central Line Lumen: triple Central Line Procedure: betadine prep, sterile drapes applied, sterile dressing applied Central Line Position: internal jugular (R) Anesthesia: Lidocaine cc's of anesthesia: 5 Complications: none Central Line Post Position: sutured, good blood return - placed under direct ultrasound guidance, direct visualization, nonpulsatile compressible vessel cannulated. Diagnostics - Vital Signs Vital Signs Temp Pulse Resp BP Pulse Ox 08/22/19 17:07 0 F 0 0 000/000 0 - Laboratory Lab Statement: Any lab studies that have been ordered have been reviewed, and results considered in the medical decision making process. Re-Evaluation - Re-Evaluation First Eval Change: Improved Second Eval Change: Worse Third Eval Change: Improved Fourth Eval Change: Worse Disposition - Course Course Of Treatment: Patient is a 58 y/o M presenting to [facility] via EMS in cardiac arrest. ABC alert was paged on overhead 1655, EMS arrived 1700 with provider in room immediately upon arrival. EMS states that the patient had onset of chest pain with SOB about an hour prior to arrival. Patient is reported to have gone to the bathroom, vomited, subsequently collapsed and became unresponsive. called 911. First responders initiated CPR, EMS states that they had given 6 epi and 1 bicarb. 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 Patient had an ICD which had shocked him and returned the patient to rhythm. However, this was lost. EMS state that last shockable rhythm they observed was v-fib. EMS administered 3 rounds of epi during transport. They state that the patient had NH around a month ago. He was evaluated at [facility] and was scheduled to have appointment at the [facility]. 1707 - patient was bagged, 1 mg epi administered, 1708 - daughter arrival, in waiting room, pacemaker turned off with magnet. Daughter reports the patient had 25% cardiac function after NH , 1708 - bedside US done, 1711 - 1 mg epi administered, 1713 - Discussed patient 's poor prognosis with in waiting room in private setting. was comforted. 1714 - 3rd epi administered, 1716 - bedside US done once more. Dr. Lopez in room to evaluate. 1724 - Pulse 103, o2 100, BP 90/61. Arterial line was placed by Dr. Lo. Patient was given fluids, levophed, ketamine 100 mg, amiodarone 300 mg IV SLOW. The patient had a prolonged resuscitative course, with episodes of return of circulation in the field, as well as in the emergency department. He sustained pulses for periods of regular for 15-20 minutes at a time. He did receive a arterial pressure monitoring line by Dr. Lo. See his dictated report. Within 5 minutes of placing our right internal jugular central line, the patient did become bradycardic, at times having ventricular fibrillation and and later pulseless. I did withdraw the central line by 5 cm at this point, but I do not believe the central line contributed to the arrhythmia. The patient had multiple defibrillations in the emergency department. He did develop some purposeful movements to dislodge medical devices, however he had multiple episodes of pulselessness which were prolonged after resuscitation. Interventional cardiology evaluated the patient , due to his cardiomyopathy and extensive coronary artery disease who is not a candidate for PCI. He unfortunately fell maximal medical management including IV Levaquin and IV epinephrine, and also repeated defibrillations and amiodarone , and also multiple rounds of CPR. I discussed his prognosis early on with his family, as soon as they arrived, specifically his . The family was understanding. I did update them at the time of as well, and also requested their emergent verbal consent for the arterial and central lines. They consented to this. I provided support to the family. - Diagnoses Provider Diagnoses: Acute myocardial infarction, Cardiopulmonary arrest, Coronary artery disease - Physician Notifications Time Discussed With Above Provider: 19:38 Instructed by Provider To: Other - Patient's case was discussed with Joie Vivas corporate investigator. Dr. Jose to fill out the certificate - Critical Care Time Critical Care Time: 75-104 min - 104 minutes CCT Discharge ED - Sign-Out/Discharge Documenting (check all that apply): Patient Departure - Discharge Plan Condition: Disposition: Referrals: Griffin Yuan MD [Primary Care Provider] - - Billing Disposition and Condition Condition: Disposition: - Attestation Statements Document Initiated by Azaelibe: Yes Documenting Scribe: Chirag Provider For Whom Ronnie is Documenting (Include Credential): Dony Jose MD Scribe Attestation: Chirag Villalobos scrharjeeted for Dony Jose MD on 08/22/19 at 2047. Scribe Documentation Reviewed: Yes Provider Attestation: The documentation as recorded by the Chirag lee accurately reflects the service I personally performed and the decisions made by , Dony Jose MD Status of Scribe Document: Viewed
--- NOTE | 2019-08-22 17:47 | ED ---
ED Procedures - Procedure Summary Procedure Summary: Arterial Line Procedure Note The patient was prepped for a left arterial line. The left radial artery was identified as a ultrasound. Patient had a skin prep with ChloraPrep. A 20- gauge arterial catheter was inserted into the left radial artery with positive bowel arterial blood. A guidewire was then inserted into the artery with subsequent catheter insertion. He had his catheter sutured using 3-0 nylon. A sterile dressing was applied. Positive waveform was seen on the monitor
[2019-08-22] MEDS ORDERED: Norepinephrine 16MCG/ML IVPRE* 4,000 MCG/250 ML BAG IV SCH (18:00)
[2019-08-22] MEDS: KETAMINE HCL* 50 MG/ML 10 ML VIAL IV ONE ×2 (18:07→18:21)
[2019-08-22] MEDS ORDERED: KETAMINE HCL* 50 MG/ML 10 ML VIAL ONE (18:07)
[2019-08-22] MEDS ORDERED: Amiodarone IV VIAL** 50 MG/ML 3 ML (150 MG) VIAL SLOW PUSH ONE (20:15)
[2019-08-22] MEDS ORDERED: EPINEPHrine SULFITE FREE* 1 MG in D5W 250 ML BAG* 249 ML IV ONE (20:19)
[2019-08-22] MEDS ORDERED: KETAMINE HCL* 50 MG/ML 10 ML VIAL IV ONE (20:19)
--- NOTE | 2019-08-22 21:23 | CONS ---
CC: Dr. Delcid at [facility]; Dr. Yuan INTERVENTIONAL CARDIOLOGY CONSULT NOTE: DATE OF CONSULT: 08/22/19 PRIMARY CARE PHYSICIAN: Dr. Yuan. AVIATION ELECTRICAL TECHNICIAN: Dr. Delcid at [facility]. HISTORY OF PRESENT ILLNESS: A 58-year-old male with severe LV systolic dysfunction due to coronary artery disease and multi-vessel, multi-lesion coronary artery disease, brought to the ER after an in the field arrest. He has a complex prior cardiac history. He was last admitted here on 07/11/19 with non-ST elevation infarct, echo then showed EF of 20% to 25% with calcified LV apical thrombus. He was referred to [facility] for a cath. I spoke with Dr. Bloom who reviewed his records at [facility]. He apparently had 60% to 70% left main stenosis, a mid LAD stent with proximal and distal stenosis, 95% circumflex stenosis, and occluded RCA which may be non-dominant. He had small diffusely diseased vessels but probably graftable, distal LAD, diagonal and marginal. His films were referred to [facility] for an evaluation regarding complex high risk surgical revascularization. In Dr. Bloom's opinion , he is categorically not a PCI candidate. He has severe LV dysfunction and has an AICD. According to the family, he has had a few episodes of angina over the past week or 2 which have been brief. This afternoon, he had chest pain and then collapsed. When paramedics arrived, apparantly family nor first responders where doing CPR. It is unknown how long he was down without CPR, the paramedics estimated 5 to 10 minutes but that is very uncertain in my mind. He then had 30 minutes of CPR before he had a ROSC. His AICD fired at least once. Apparently, his rhythm was mostly PEA. When he arrived here in the ER, he had fixed and dilated pupils without spontaneous respiration. Currently, he is getting central line placed. PAST MEDICAL HISTORY: Ischemic cardiomyopathy, diabetes, PAD, severe LV systolic dysfunction, chronic diarrhea, multiple previous coronary interventions. MEDICATIONS: Pre-hospital medications: I do not have his current list, everything was changed according to the family when he was discharged from [facility] at last admission. ALLERGIES: He is allergic to CONTRAST. FAMILY HISTORY: Positive for premature coronary artery disease. SOCIAL HISTORY: Apparently a nonsmoker. REVIEW OF SYSTEMS: Unobtainable. PHYSICAL EXAM: BP apparently 90 systolic by palpation. He is ventricularly paced at around 100. He is presently unresponsive. I do not hear any rales or wheezes laterally. Heart sounds are distant. I do not hear any clear gallop or murmur. His pulses are only dopplerable. DIAGNOSTIC STUDIES/LAB DATA: His labs are all pending. Electrocardiogram at 1719 shows ventricularly paced rhythm. IMPRESSION AND PLAN: In the field cardiac arrest with prolonged resuscitation before ROSC and potentially prolonged downtime without resuscitation prior to arrival of EMS. He has severe underlying LV dysfunction. After discussion with Dr. Bloom, it is clear the patient is not a candidate for percutaneous revascularization. At the moment, we do not have a clear diagnosis of STEMI or non- STEMI, It is unclear whether he had primary electrical event. My recommendation is to treat him for prolonged in the field arrest with cooling and supportive measures and await evidence of neurological functional recovery. If he has neurologic recovery, he would then potentially be back on track for surgical revascularization at [facility] as was planned during his [facility] evaluation. We will follow with you as needed. Discussed with family in detail. Thank you for the consultation. [id number]/[facility] #: [id number] DARLENE
== END 2019-08-22 19:27 | disposition expired ==
LOC: ED 17:01
DX: I46.9 Cardiac arrest, cause unspecified (principal); I21.9 Acute myocardial infarction, unspecified; I25.10 Atherosclerotic heart disease of native coronary artery without angina pectoris; E11.319 Type 2 diabetes mellitus with unspecified diabetic retinopathy without macular edema; I11.0 Hypertensive heart disease with heart failure; I50.9 Heart failure, unspecified; E78.00 Pure hypercholesterolemia, unspecified; F17.210 Nicotine dependence, cigarettes, uncomplicated; Z95.810 Presence of automatic (implantable) cardiac defibrillator; Z79.01 Long term (current) use of anticoagulants; Z79.899 Other long term (current) drug therapy; Z88.0 Allergy status to penicillin; Z91.041 Radiographic dye allergy status
CPT/HCPCS: 36555; 93005; 96361; 96374; 96375; 99285; J0171